=== PATIENT | female | born 1945 | race Caucasian/White ===

== ENCOUNTER 2023-05-28 15:53 | Inpatient (IN) | payer OTHER, SELFPAY ==
[2023-05-28] VITALS (12 sets, daily range): BP systolic 88–142; BP diastolic 51–81
[2023-05-28 10:02] LABS: % Basophils 0.2 % (0-2); % Eosinophils 3.9 % (0-6); % Immature Granulocytes 0.8 % (0-0.5); % Lymphocytes 31.7 % (20.5-51.1); % Monocytes 11.7 % (1.7-9.3); % Neutrophils 51.7 % (42.2-75.2); Absolute Eosinophils 0.2 10^3/uL (0-0.7); Absolute Immature Granulocytes 0.1 10^3/uL (0-0.05); Absolute Monocytes 0.7 10^3/uL (0.1-0.6); Absolute Neutrophils 3.2 10^3/uL (1.4-6.5); Hematocrit 33.2 % (37.0-47.0); Hemoglobin 11.4 g/dL (12.0-16.0); Mean Corp Hgb Conc. 34.3 g/dL (33.0-37.0); Mean Corpuscular Hgb 31.8 pg (27.0-31.0); Mean Corpuscular Volume 92.7 fL (81.0-99.0); Mean Platelet Volume 9.8 fL (7.4-10.4); Nucleated Red Blood Cells % 0 %; Platelet Count 230 10^3/uL (130-400); Red Blood Cell Count 3.58 10^6/uL (4.20-5.40); Red Cell Dist. Width 13.6 % (11.5-14.5); White Blood Cell Count 6.2 10^3/uL (4.8-10.8)
[2023-05-28 10:20] LABS: ALT (SGPT) 25 U/L (0-35); AST (SGOT) 35 U/L (14-36); Albumin 3.5 g/dl (3.5-5.0); Alkaline Phosphatase 62 U/L (38-126); Blood Urea Nitrogen 32 mg/dl (7-17); Calcium 8.6 mg/dl (8.4-10.2); Chloride 97 mmol/L (98-107); Glucose 96 mg/dl (70-99); Lipase 56 U/L (23-300); Potassium 4.6 mmol/L (3.5-5.1); Sodium 132 mmol/L (135-145); Total Bilirubin 1.9 mg/dl (0.2-1.3); Total Protein 5.8 g/dl (6.3-8.2); eGFR 51.75
[2023-05-28 10:27] LABS: D-Dimer 3.35 ug/mlFEU (0.00-0.50)
[2023-05-28 10:30] LABS: Troponin I < 0.012 ng/ml
[2023-05-28 10:43] LABS: Carbon Dioxide 32 mmol/L (22-30)
[2023-05-28] MEDS: LOW STRENGTH ASPIRIN 81 MG PO (10:56)
--- NOTE | 2023-05-28 11:04 | ED.GENMED ---
History of Present Illness
General
Chief Complaint: Chest Pain
Source: patient and family
Exam Limitations: none
Time Seen by Provider: 05/28/23 09:29
Nursing documentation reviewed up to this point in time: agreed with
Travel History
Have you had any contact with someone who has COVID-19?: No
Do you have any symptoms of coronavirus? Fever > 100 degrees, chills, cough, shortness of breath, sore throat, loss of taste or smell, muscle aches, or headache?: No
History of Present Illness
History of Present Illness:
78-year-old female with a history of hypertension, hyperlipidemia, NSTEMI, Takotsubo in 2022 status post cleanCath
Presents for chest discomfort this morning around 730 after she had gotten up to use the bathroom and got back to bed. She says she felt a pain across her chest and wraparound to her back and felt short of breath with it. It did hurt to take a
deep breath at the same time. It lasted about 10 minutes before resolving but moving onto feeling some discomfort in her jaw. She still has that mildly. She no longer feels short of breath and has no pleuritic pain. Patient is 8 days postop
total right knee by Dr. Hogan. She apparently was on a baby aspirin prior to surgery but was told to hold it a week before. She was not aware that she was supposed to resume the aspirin after her surgery and so she has not been taking that.
Patient has been taking 1 daily dose of Tylenol in the morning which she thought was a substitute for the aspirin. She is not not on any anticoagulant. Patient has been using oxycodone twice a day for pain but it is making her constipated so she
thinks she is going to stop. Her last dose was yesterday. Patient has had expected swelling and bruising of her right knee and into her calf. She is not having any numbness tingling or weakness.
Past History
Past History
ED Past Medical History: HTN; Negative CAD, IDDM or NIDDM
ED Past Surgical History: Negative Cardiac
Social History
Tobacco: Non-smoker
Alcohol: Occasional
Drug: None
Personal:
Living: alone
Employment: Retired
Family History
Family History: Other (Noncontributory); Negative CAD or Sudden
Review of Systems
Review of Systems
Allergies reviewed?: Yes
All Other Systems: Not applicable
Phy Exam
Physical Exam
Physical Exam:
GENERAL: Alert , in no apparent distress
EYE: pupils equal and reactive
NECK: Supple
ENT: o/p clr, mmm.
CARDIAC: Regular rate and rhythm .
Patient has edema of her right lower extremity with ecchymosis specifically under any and down to her calf
LUNGS: Clear breath sounds bilaterally, no acute respiratory distress, no wheezes/rales/rhonchi
ABDOMEN: Soft, without focal tenderness, no r/g, no cvat, normal bowel sounds
NEUROLOGICAL: Alert and oriented, no focal neuro deficits
SKIN: Warm and dry, skin intact.
MUSCULOSKELETAL: Moderate edema as expected postop right total knee repair, patient has have some flexion of her knee intact, she is has a dressing anteriorly over her incision site, there is ecchymosis throughout the leg
PSYCH: Normal and appropriate interaction.
Scores
Heart Score for Chest Pain Patients
STEMI patient?: No
History: Moderately Suspicious
ECG: Nonspecific Repolarization
Age: >/= 65 years
Risk Factors: 1 or 2 Risk Factors
Troponin: </= Normal Limit
Heart Score for Chest Pain Patients: 5
Heart Score Risk: 20.3% MACE over next 6 weeks
Course
Orders/Labs/Results
Orders:
Orders
05/28/23
Electrocardiogram (*1) Stat
Reason for Study: Chest Pain
Comment: DONE
Electrocardiogram (*1) Stat
Reason for Study: Chest Pain
Comment: DONE
05/28/23 09:47
CMP [Comprehensive Metabolic Panel] Urgent
Complete Blood Count/With Diff Urgent
DDimer [D-Dimer] Urgent
Lipase Urgent
PTT Urgent
Troponin I Urgent
05/28/23 10:07
CT Chest Pe Study Urgent
Comment:
Reason For Exam: s/p TKR, sob, chest pain
05/28/23 10:50
Aspirin Chewable [Low Strength Aspirin] 81 mg PO NOW STA
05/28/23 11:47
Venous Doppler Lwr Ext Bilat [US Periph Venous LOWER Ext Edmar] Urgent
Comment:
Reason For Exam: PE
05/28/23 11:48
Add On- LAB Stat
Tests Added?: pt/ptt/ INR
Heparin 6,000 units IV NOW STA
Pharmacy Request to Place See Dose Instructions PO NOW STA
Discontinue all Active Warfarin orders?: Yes
Nursing to Place Non Medication Order As Directed
Physician Order: PTT 6 hours after initial start of Heparin infusion
05/28/23 12:00
Heparin 31230 Units/250 ml 25,000 units in 250 ml IV PER PROTOCOL
Weight to be used for heparin protocol in kilograms (kg):: 75.1
Protocol:: DVT/PE
PTT Goal Range to be used:: PTT 73 to 111 seconds
Order type:: Initial
INITIAL Infusion Dose (UNITS/KG/hr) & then follow protocol:: 18 units/kg/hr
Infusion Dose in UNITS/hr & then follow protocol (UNITS/hr):: 1,400
INFUSION RATE in mL/hr & then follow protocol (mL/hr):: 14
For DVT/PE algorithm, re-bolus for low PTT?: Yes
PTT less than or equal to 64 seconds:: Re-bolus 80 units/kg (max 10,000units). Increase by 300 units/hr
(+ 3mL/hr)
PTT 64.1 to 72.9 seconds:: Re-bolus 40 units/kg (max 5,000 units). Increase by 200 units/hr
(+ 2mL/hr)
PTT 73 to 111 seconds:: Target Range. No change in rate.
PTT 111.1 to 130.9 seconds:: Decrease rate by 200 units/hr (- 2 mL/hr)
PTT 131 to 199.9 seconds:: HOLD for 1 hr. Then decrease by 200 units/hr (- 2mL/hr)
PTT greater than or equal to 200 seconds:: HOLD for 2 hrs & Notify Provider. Then decrease by 300 units/hr
(- 3mL/hr)
Lab follow-up:: Each change, PTT q6h until 2 consecutive are therapeutic. Then
PTT daily.
Pharmacy Request to Place See Dose Instructions IV DIRECTED
Abnormal Lab Results
05/28/23
09:47
RBC 3.58 L 10^6/uL
(4.20-5.40)
Hgb 11.4 L g/dL
(12.0-16.0)
Hct 33.2 L %
(37.0-47.0)
MCH 31.8 H pg
(27.0-31.0)
Abs Immat Gran (auto) 0.1 H 10^3/uL
(0-0.05)
Absolute Monos (auto) 0.7 H 10^3/uL
(0.1-0.6)
Immature Gran % 0.8 H %
(0-0.5)
Monocytes % 11.7 H %
(1.7-9.3)
D-Dimer 3.35 H ug/mlFEU
(0.00-0.50)
Sodium 132 L mmol/L
(135-145)
Chloride 97 L mmol/L
(98-107)
Carbon Dioxide 32 H mmol/L
(22-30)
BUN 32 H mg/dl
(7-17)
Creatinine 1.1 H mg/dL
(0.6-1.0)
Total Bilirubin 1.9 H mg/dl
(0.2-1.3)
Total Protein 5.8 L g/dl
(6.3-8.2)
05/28/23 09:47
05/28/23 09:47
Vital Signs
Initial and Last Documented VS:
Initial Vital Signs
Temp Pulse Resp BP Pulse Ox
97.8 F 70 16 100/61 98
05/28/23 09:23 05/28/23 09:23 05/28/23 09:23 05/28/23 09:23 05/28/23 09:23
Last Documented Vital Signs
Temp Pulse Resp BP Pulse Ox
97.8 F 70 16 100/61 98
05/28/23 09:23 05/28/23 09:23 05/28/23 09:23 05/28/23 09:23 05/28/23 09:23
MDM/Problems Addressed
Differential Diagnosis Includes:
PE, NSTEMI, dissection
MDM/Problems Addressed:
78 y/o F 8 days post op R TKR
here with chest pain/sob this am at 730
now with jaw discomfort which is minmal/mild
stopped her ASA prior to surgery and never restarted it, sounds as if she was confused by directions an dwas told to take tylenol post op instead of aspirin
pt has some pain/swlelign in the knee and lower leg which has been expected from surgery
no syncope, fever, cough
on exam pt is well appearing, no distress, not tachy or tachypneic
her lugns are clear
she has edema and ecchymosis of RLE
normal pulse
ekg is LBBB which is unchanged but there is a change to ST seg in v2
trop neg
d dimer was ordered by RN and elevated --> pt was high risk and i was planning on CT anyway
ct shows r pulm artery clot, small, no r heart strain
vitals stable
will admit because pt needs trop trending and us of legs. and monitoring for bleeding pos op.
*Critical Care Note
Total Time (30-74mins, 75-104mins- exclusive of procedures): Not Applicable
ED Attending Note
-
Portions of this chart may have been created with voice recognition software.� Occasional wrong word or��sound alike� substitutions may have occurred due to the inherent limitations of voice recognition software.
Discharge Plan
Departure
Patient Disposition: Admit
Date of Disposition: 05/28/23
Time of Disposition: 11:47
Admit to: Telemetry
Presentation/result/management discussed w/ accepting MD/DO: Hospitalist
Condition: Fair
Covid-19: Not Applicable
Discharge Problem:
Pulmonary embolism
Prescriptions:
No Action
atorvastatin 20 mg Tablet
20 mg PO QPM Qty: 90 5RF
amlodipine 2.5 mg Tablet
2.5 mg PO DAILY
oxycodone 5 mg Capsule
5 mg PO Q4H PRN (Reason: pain)
celecoxib 100 mg Capsule
100 mg PO BID
valsartan 160 mg Tablet
160 mg PO DAILY
carvedilol 6.25 mg tablet
25 mg PO BID
Referrals:
Halina Parker MD [Family Provider] -
Interventions
Interventions:
*Risk Screen - Suicide Last Done: 05/28/23 10:04
*General Assessment Last Done: 05/28/23 10:03
*Neglect/Abuse Screening Last Done: 05/28/23 10:04
*ED COVID-19 Vaccine History Last Done: 05/28/23 09:23
ED- Cardiac Assessment Last Done: 05/28/23 10:05
[2023-05-28 12:00] LABS: APTT 22.9 Sec (23.4-35.0)
[2023-05-28] MEDS: HEPARIN 6000 UNITS IV (12:04)
[2023-05-28 12:11] LABS: INR 1.06; PT 13.8 Sec (11.4-14.6)
[2023-05-28] MEDS: HEPARIN 25000 UNITS/250 ML IV (12:18)
--- NOTE | 2023-05-28 14:44 | HPS.HSE ---
Family Physician
-
Family Physician: Halina Parker
Chief Complaint
-
Chest Pain
History of Present Illness
78 y/o female with past medical history of Nonobstructive Coronary Artery Disease, Stress-induced takotsubo cardiomyopathy, Hypertension, Osteoarthritis of the Knees, Recent Total Right Knee Replacement (8 days ago, with Dr. Batres), History of QTc
prolongation, Left Bundle Branch Block, Chronic Kidney Disease Stage 3a, Gastroesophageal Reflux Disease, Hypertension and Hyperlipidemia presented with chest pain that started around 7:30 AM this morning. Patient says the pain started in her chest
and wrapped around to her back, and it did hurt to take a deep breath at the same time and she did have some discomfort in her jaw. She still has that mildly. She no longer feels short of breath and has no pleuritic pain. Patient says she was not
aware that she was supposed to resume her Aspirin after her surgery and so she has not been taking that.
Medical History
Past Medical History
Past Medical History: Reports Other (As per HPI above)
Past Surgical History: Reports Orthopedic
Social History
Tobacco: Non-smoker
Alcohol: None
Drug: None
Family History
Family History: Other (Heart Disease and Arthritis)
Allergies / Home Medications
Allergies reflects when Allergies were last updated in [facility].
Home Medications with original date entered in [facility]
Allergy/Medication List:
Allergies
Allergy/AdvReac Type Severity Reaction Status Date / Time
latex Allergy Rash Verified 05/28/23 09:26
Home Medications
atorvastatin 20 mg tablet 20 mg PO QPM #90 tabs 05/01/22
Ageles Brain 2 cap PO DAILY 05/28/23
Brain Strong Supplement 2 cap PO DAILY 05/28/23
acetaminophen 325 mg tablet (Tylenol) 325 mg PO TID 05/28/23
amlodipine 2.5 mg tablet 2.5 mg PO QPM 05/28/23
aspirin 81 mg tablet,delayed release 81 mg PO DAILY 05/28/23
calcium carb 333 mg-vit D3 133 unit-mag ox 133 mg-zinc oxide 5 mg tab 1 tab PO DAILY 05/28/23
carvedilol 25 mg tablet (Coreg) 25 mg PO BID 05/28/23
celecoxib 100 mg capsule 100 mg PO BID 05/28/23
lysine 500 mg tablet 1,500 mg PO DAILY 05/28/23
quercetin 500 mg capsule 500 mg PO DAILY 05/28/23
thymus gland calf 200 mg tablet,delayed release 200 mg PO DAILY 05/28/23
valsartan 160 mg tablet 160 mg PO DAILY 05/28/23
Review of Systems
-
A 12 point ROS was completed and negative except as noted: Yes
Physical Exam
Vital Signs
Vital Signs
Temp Pulse Resp BP Pulse Ox
97.8 F 72 12 88/58 97
05/28/23 09:23 05/28/23 14:30 05/28/23 14:30 05/28/23 14:20 05/28/23 12:30
Physical Exam
General: No Apparent Distress
HEENT: NormoCephalic and Moist mucous membranes
Respiratory: Clear
Cardiac: S1/S2 and Regular Rhythm
GI: Soft, Non Tender and Normal Bowel Sounds
Musculoskeletal: No Cyanosis, Edema, Left Lower Extremity and Edema, Right Lower Extremity (RLE with significantly more swelling than the left. Surgical bandage in place at the right knee.)
Skin: Warm and Dry
Neuro: Awake, Alert and AO x 3
Psych: Calm and Intact Judgment/Insight
Laboratory Results
-
05/28/23 09:47
05/28/23 09:47
Laboratory Results
PT 13.8 Sec (11.4-14.6) 05/28/23 09:47
INR 1.06 05/28/23 09:47
APTT Cancelled 05/28/23 11:48
Total Bilirubin 1.9 mg/dl (0.2-1.3) H 05/28/23 09:47
AST 35 U/L (14-36) 05/28/23 09:47
ALT 25 U/L (0-35) 05/28/23 09:47
Alkaline Phosphatase 62 U/L (38-126) 05/28/23 09:47
Troponin I < 0.012 ng/ml 05/28/23 09:47
Lipase 56 U/L (23-300) 05/28/23 09:47
Impression/Plan
-
Assessment/Plan
Right-Sided Pulmonary Embolism, Concern for Being provoked from recent surgery
History of Nonobstructive Coronary Artery Disease
Stress-induced takotsubo cardiomyopathy
Hypertension
-Continue Heparin Drip VTE protocol
-Spoke, on 05/28/23 via [facility], with platform worker Dr. Karmen Fletcher who reviewed patient's EKGs, and she mentioned that patient's EKG�s look much better than prior; She has a left bundle branch block, which is chronic with improved ST
segments compared to before; She just had a cardiac catheterization a year ago with no coronary disease so unlikely to give her two diagnosis; Would treat her as a pulmonary embolism (as this is the main issue); in addition, she had a stress test in
February that was without abnormality
-Unlikely to be cardiac: consult cardiology if troponins become significantly positive and if there are any significant changes on echocardiogram
-Consulted pulmonary, recommendations appreciated
-Echocardiogram
-Continue home statin and Aspirin for now
-Continue Coreg
Osteoarthritis of the Knees
Recent Total Right Knee Replacement
-Pain medicines as needed
-Will consider orthopedics consultation
History of QTc prolongation
Left Bundle Branch Block
-Chronic
-Newly diagnosed in April 2022
Chronic Kidney Disease Stage 3a
Gastroesophageal Reflux Disease
Hypertension
-Continue Valsartan
-Continue Coreg
Hyperlipidemia
-Continue Atorvastatin
DVT PPx: Heparin Drip
Code Status: Full Code
--- NOTE | 2023-05-28 14:53 | CM ---
CM reviewed medical records. CM met with patient and son in room. Patient confirmed demographics. Patient is S/p TKR and is on service with [facility]. patient denies history of SNF. Patient uses a cane and walker for ambulation. Patient has
medication coverage and ues RIte Aide. Patient is active with her PCP Dr. Huff.
Patient is agreeable to referral back to [facility]. Referral sent via [facility].
PLAN: Home with [facility].
--- NOTE | 2023-05-28 15:30 | CON.PUL ---
Consultation
Consultation Request
Date/Time Consultation Requested: 05/28/23
Date/Time Consultation Performed: 05/28/23
Performing Provider: Chio
Reason for Consultation: PE
Medical History
-
History of Present Illness:
Patient is a 78 year old F with past medical history of CAD, takotsubo cardiomyopathy, HTN, OA s/p R TKR (8 days ago, with Dr. Batres), CKD 3A, HTN presenting to ER with acute onset chest pain day of admission. She notes that there was
associated radiation to back and pain with deep inspiration. CT chest obtained showing filling defects in the right middle lobe pulmonary arteries consistent with pulmonary embolism.
She has never had PE/DVT in her life before and denies family history.
Munday to be provoked following recent orthopedic surgery. Son notes that she was not taking her daily baby ASA postop. She had been moving around despite her surgery but noted LE swelling was worsening.
Denies prior known history of lung disease in past including asthma, COPD. She was a trivial smoker in college, never pack/day use.
Past Medical History
Past Medical History: Other (see list below)
Social History
Tobacco: Non-smoker
Alcohol: None
Drug: None
Family History
Family History: Reviewed & Not Pertinent
Allergies / Home Medications
Allergies
Allergy/AdvReac Type Severity Reaction Status Date / Time
latex Allergy Rash Verified 05/28/23 09:26
Home Medications
Medication Instructions Recorded Confirmed Last Taken Type
atorvastatin 20 mg tablet 20 mg PO QPM #90 tabs 05/01/22 05/28/23 05/27/23 Rx
Ageles Brain 2 cap PO DAILY 05/28/23 05/28/23 Unknown History
Brain Strong Supplement 2 cap PO DAILY 05/28/23 05/28/23 15 Days Ago History
~05/13/23
acetaminophen 325 mg tablet 325 mg PO TID 05/28/23 05/28/23 05/28/23 History
(Tylenol) 975 mg
amlodipine 2.5 mg tablet 2.5 mg PO QPM 05/28/23 05/28/23 05/27/23 History
aspirin 81 mg tablet,delayed 81 mg PO DAILY 05/28/23 05/28/23 15 Days Ago History
release ~05/13/23
calcium carb 333 mg-vit D3 133 1 tab PO DAILY 05/28/23 05/28/23 05/27/23 History
unit-mag ox 133 mg-zinc oxide 5 mg
tab
carvedilol 25 mg tablet (Coreg) 25 mg PO BID 05/28/23 05/28/23 05/28/23 History
celecoxib 100 mg capsule 100 mg PO BID 05/28/23 05/28/23 05/28/23 History
lysine 500 mg tablet 1,500 mg PO DAILY 05/28/23 05/28/23 15 Days Ago History
~05/13/23
quercetin 500 mg capsule 500 mg PO DAILY 05/28/23 05/28/23 15 Days Ago History
~05/13/23
thymus gland calf 200 mg 200 mg PO DAILY 05/28/23 05/28/23 15 Days Ago History
tablet,delayed release ~05/13/23
valsartan 160 mg tablet 160 mg PO DAILY 05/28/23 05/28/23 05/28/23 History
Review of Systems
-
History Source: Patient
All other systems: Negative unless noted
Vitals / Labs / Diagnostic Testing
Vital Signs
Temp Pulse Resp BP Pulse Ox
97.8 F 71 14 95/55 97
05/28/23 09:23 05/28/23 14:48 05/28/23 14:48 05/28/23 14:48 05/28/23 12:30
Lab Data
05/28/23 09:47
05/28/23 09:47
Laboratory Results
05/28/23 05/28/23
09:47 11:48
PT 13.8
INR 1.06
APTT 22.9 L Cancelled
Diagnostic Testing:
Physical Exam
-
HEENT: Normocephalic, Anicteric and Moist Mucous Membranes
Cardiovascular: S1/S2, Regular Rhythm and Peripheral Edema (bilateral 3+)
Respiratory: Clear and Non-Labored Respirations
GI: Soft, Non Distended and Non Tender
Neurology: Awake, Alert, Oriented, AO x 3 and No Motor Deficits
Skin: Warm, Dry and Good Color
General: Comfortable and Other (NAD)
Assessment
-
Patient is a 78 year old F with past medical history of CAD, takotsubo cardiomyopathy, HTN, OA s/p R TKR (8 days ago, with Dr. Batres), CKD 3A, HTN presenting to ER with acute onset chest pain day of admission. She notes that there was
associated radiation to back and pain with deep inspiration. CT chest obtained showing filling defects in the right middle lobe pulmonary arteries consistent with pulmonary embolism. We are consulted for eval 05/28/23.
Acute PE, provoked following recent orthopedic surgery
B/L LE swelling
Pleuritic chest pain
Mild anemia, Hb 11
Mild hyponatremia
OA s/p R TKR 05/20/23
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
Nonobstructive CAD
Stress-induced takotsubo cardiomyopathy
Hypertension
Osteoarthritis of the Knees
History of QTc prolongation
Left Bundle Branch Block
Chronic Kidney Disease Stage 3a
Gastroesophageal Reflux Disease
Hyperlipidemia
Atopic Dermatitis
Acne Rosacea� �
H- Pylori� �
Basal cell carcinoma - nose s/p excision
Liver cysts� �
s/p bilateral Tubal Ligation� �
knee arthroscopy for torn meniscus� �
benign breast tumor excision� �
Plan
No oxygen was needed on admission, currently saturating >90% on RA
Denies prior known history of lung disease in past including asthma, COPD.
She was a trivial smoker in college, never pack/day use.
Suspect patient has underlying PE, provoked
Munday to be provoked following recent orthopedic surgery. Son notes that she was not taking her daily baby ASA postop.
She had been moving around despite her surgery but noted LE swelling was worsening.
She has never had PE/DVT in her life before and denies family history.
Imaging reviewed
Agree with IV heparin with eventual transition to OAC
ECHO in past reviewed--normal function
She has history of Takotsubo CM, nonobs CAD
No acute issues noted
Can monitor for now, repeat ECHO
Trops neg
LE swelling noted, neg for DVT
Further postop care per ortho
Will need outpatient pulmonary evaluation in our office for PFTs and 6MWT
Reviewed with patient
Risk factors assessed for underlying sleep disordered breathing also noted, recommend outpatient PSG/sleep evaluation
We will follow
Diagnostic Data
Duplex 05/28/23- IMPRESSION: No evidence of deep venous thrombosis bilaterally.
CTA chest 05/28/23- FINDINGS: There are small filling defects in the right middle lobe pulmonary artery consistent with pulmonary embolism. No aortic dissection. Great vessels at the aortic arch are widely patent.
Minimal biapical pleural thickening. Minimal dependent atelectasis. Scarring in the lung bases versus atelectasis. No pleural effusion. No focal airspace process. No pneumothorax.
The heart size is mildly enlarged. Mild coronary artery calcifications. Small pericardial effusion. There is no axillary, mediastinal or hilar adenopathy.
ECHO 03/03/23- Normal left ventricular size, wall thickness and systolic function.� No�regional wall motion abnormalities are seen. Estimated ejection fraction is 55-�60%.�No significant valvular disease.�Compared to previous echo from August 2022,
there is no significant change�
[2023-05-28] MEDS: TYLENOL 325 MG PO ×2 (18:25→21:07)
[2023-05-28] MEDS: LIPITOR 20 MG PO (18:25)
[2023-05-28] MEDS: NORVASC 2.5 MG PO (18:26)
[2023-05-28 19:22] LABS: Troponin I < 0.012 ng/ml
[2023-05-28 19:27] LABS: APTT > 200 Sec (23.4-35.0)
--- NOTE | 2023-05-28 20:53 | PTCARENOTE ---
Patient reported chest pressure and discomfort to RN. AAOx3, VS HR 76, Oral temp 98.2, BP 100/69, O2 sat 95% on RA. 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 EKG sent to MOVIE SHOT CAMERA OPERATOR. Patient requested no pain medication. K-Pad ordered for chest.
[2023-05-28] MEDS: COREG 25 MG PO (21:07)
[2023-05-29] VITALS (7 sets, daily range): BP systolic 97–120; BP diastolic 51–87
[2023-05-29 04:02] LABS: Hematocrit 28.5 % (37.0-47.0); Hemoglobin 9.9 g/dL (12.0-16.0); Mean Corp Hgb Conc. 34.7 g/dL (33.0-37.0); Mean Corpuscular Hgb 32.7 pg (27.0-31.0); Mean Corpuscular Volume 94.1 fL (81.0-99.0); Mean Platelet Volume 9.6 fL (7.4-10.4); Platelet Count 193 10^3/uL (130-400); Red Blood Cell Count 3.03 10^6/uL (4.20-5.40); Red Cell Dist. Width 13.8 % (11.5-14.5); White Blood Cell Count 5.7 10^3/uL (4.8-10.8)
[2023-05-29 04:26] LABS: APTT 117.9 Sec (23.4-35.0); Troponin I < 0.012 ng/ml
[2023-05-29 04:47] LABS: Blood Urea Nitrogen 38 mg/dl (7-17); Calcium 7.9 mg/dl (8.4-10.2); Carbon Dioxide 30 mmol/L (22-30); Chloride 104 mmol/L (98-107); Glucose 100 mg/dl (70-99); Magnesium 2.4 mg/dl (1.6-2.3); Potassium 4.4 mmol/L (3.5-5.1); Sodium 134 mmol/L (135-145); eGFR 58.02
[2023-05-29] MEDS: ASPIR LOW (ENTERIC COATED) 81 MG PO (08:05)
[2023-05-29] MEDS: COREG 25 MG PO ×2 (08:06→20:51)
[2023-05-29] MEDS: TYLENOL 325 MG PO ×3 (08:06→21:55)
[2023-05-29] MEDS: DIOVAN 160 MG PO (08:07)
[2023-05-29 10:08] LABS: APTT 101.1 Sec (23.4-35.0)
--- NOTE | 2023-05-29 11:49 | W.PN.PUL3 ---
Today's Communication / Plan
-
Transition to OAC per team
Stable on RA
Outpatient pulmonary FU recommended
Discharge planning per team
Assessment
-
Patient is a 78 year old F with past medical history of CAD, takotsubo cardiomyopathy, HTN, OA s/p R TKR (8 days ago, with Dr. Batres), CKD 3A, HTN presenting to ER with acute onset chest pain day of admission. She notes that there was
associated radiation to back and pain with deep inspiration. CT chest obtained showing filling defects in the right middle lobe pulmonary arteries consistent with pulmonary embolism. We are consulted for eval 05/28/23.
Acute PE, provoked following recent orthopedic surgery
B/L LE swelling
Pleuritic chest pain
Mild anemia, Hb 11
Mild hyponatremia
OA s/p R TKR 05/20/23
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
Nonobstructive CAD
Stress-induced takotsubo cardiomyopathy
Hypertension
Osteoarthritis of the Knees
History of QTc prolongation
Left Bundle Branch Block
Chronic Kidney Disease Stage 3a
Gastroesophageal Reflux Disease
Hyperlipidemia
Atopic Dermatitis
Acne Rosacea� �
H- Pylori� �
Basal cell carcinoma - nose s/p excision
Liver cysts� �
s/p bilateral Tubal Ligation� �
knee arthroscopy for torn meniscus� �
benign breast tumor excision� �
Plan
No oxygen was needed on admission, currently saturating >90% on RA
Denies prior known history of lung disease in past including asthma, COPD.
She was a trivial smoker in college, never pack/day use.
Suspect patient has underlying PE, provoked
[place] to be provoked following recent orthopedic surgery. Son notes that she was not taking her daily baby ASA postop.
She had been moving around despite her surgery but noted LE swelling was worsening.
She has never had PE/DVT in her life before and denies family history.
Imaging reviewed
Agree with IV heparin with eventual transition to OAC
ECHO in past reviewed--normal function
She has history of Takotsubo CM, nonobs CAD
No acute issues noted
Can monitor for now, repeat ECHO
Trops neg
LE swelling noted, neg for DVT
Further postop care per ortho
Will need outpatient pulmonary evaluation in our office for PFTs and 6MWT
Reviewed with patient
Risk factors assessed for underlying sleep disordered breathing also noted, recommend outpatient PSG/sleep evaluation
Diagnostic Data
Duplex 05/28/23- IMPRESSION: No evidence of deep venous thrombosis bilaterally.
CTA chest 05/28/23- FINDINGS: There are small filling defects in the right middle lobe pulmonary artery consistent with pulmonary embolism. No aortic dissection. Great vessels at the aortic arch are widely patent.
Minimal biapical pleural thickening. Minimal dependent atelectasis. Scarring in the lung bases versus atelectasis. No pleural effusion. No focal airspace process. No pneumothorax.
The heart size is mildly enlarged. Mild coronary artery calcifications. Small pericardial effusion. There is no axillary, mediastinal or hilar adenopathy.
ECHO 03/03/23- Normal left ventricular size, wall thickness and systolic function.� No�regional wall motion abnormalities are seen. Estimated ejection fraction is 55-�60%.�No significant valvular disease.�Compared to previous echo from August 2022,
there is no significant change�
Subjective Data
-
Date of Service:
Date of Service: May 29, 2023
Chief Complaint: Pulmonary Follow Up
Subjective:
patient seen and examined, no acute events on
remains stable on Ra
no new complaints
Objective Data
Data Reviewed
Vital Signs / I&O / Oxygen:
Vital Signs
Temp Pulse Resp BP Pulse Ox
98.7 F 68 20 97/60 96
05/29/23 11:40 05/29/23 11:40 05/29/23 11:40 05/29/23 11:40 05/29/23 11:40
Intake and Output
05/28/23 05/29/23 05/30/23
06:59 06:59 06:59
Intake Total 605 / 605
Balance 605 / 605
SaO2 96
Physical Exam
General: Comfortable and Other (NAD)
HEENT: Normocephalic, Anicteric and Moist Mucous Membranes
Cardiovascular: S1-S2, Regular Rhythm and Peripheral Edema (b/l 3+)
Respiratory: Clear and Non-Labored Respirations
GI: Soft, Non Distended and Non Tender
Neurology: Awake, Alert, Oriented, AO x 3 and No Motor Deficits
Skin: Warm, Dry and Good Color
Labs/Micro/Reports
Lab Data
05/29/23 03:50
05/29/23 03:50
Laboratory Results
05/28/23 05/28/23 05/28/23
09:47 11:48 18:49
PT 13.8
INR 1.06
APTT 22.9 L Cancelled > 200 H*
05/29/23 05/29/23
03:50 09:34
PT
INR
APTT 117.9 H 101.1 H
[2023-05-29 11:59] LABS: Troponin I < 0.012 ng/ml
[2023-05-29] MEDS: HEPARIN 25000 UNITS/250 ML IV (12:57)
--- NOTE | 2023-05-29 15:24 | W.PN.HOSP.TC ---
Today's Communication/Plan
-
Eliquis pricing in progress
Continue Heparin Drip
Assessment / Plan
Assessment / Plan
Physical Exam
General: No Apparent Distress
HEENT: Normocephalic and Moist mucous membranes
Respiratory: Clear
Cardiac: S1/S2 and Regular Rhythm
GI: Soft, Non Tender and Normal Bowel Sounds
Musculoskeletal: No Cyanosis, Edema, Left Lower Extremity and Edema, Right Lower Extremity (RLE with significantly more swelling than the left. Surgical bandage in place at the right knee.)
Skin: Warm and Dry
Neuro: Awake, Alert and AO x 3
Psych: Calm and Intact Judgment/Insight

Echocardiogram report as per cardiology:
'CONCLUSIONS
�1.� Left ventricle: Normal size and function with an estimated ejection
�fraction of 60-65%
�2.� Right ventricle: Normal
�3.� Atria: Normal
�4.� Mitral valve: Mild mitral regurgitation
�5.� Aortic valve: No aortic stenosis or aortic insufficiency
�6.� Tricuspid valve: Mild tricuspid regurgitation with estimated pulmonary
�artery systolic pressures of 27 mmHg
�7.� When compared to the most recent echocardiogram from 03/03/2023 there is
�been no significant change'
Assessment/Plan
Right-Sided Pulmonary Embolism, Concern for Being provoked from recent surgery
History of Nonobstructive Coronary Artery Disease
Stress-induced takotsubo cardiomyopathy
Hypertension
-Continue Heparin Drip VTE protocol
-Placed case management consult for Eliquis pricing, awaiting to hear back
-Spoke, on 05/28/23 via [place] [employer], with store protection specialist Dr. Karmen Fletcher who reviewed patient's EKGs, and she mentioned that patient's EKG�s look much better than prior; She has a left bundle branch block, which is chronic with improved ST
segments compared to before; She just had a cardiac catheterization a year ago with no coronary disease so unlikely to give her two diagnosis; Would treat her as a pulmonary embolism (as this is the main issue); in addition, she had a stress test in
February that was without abnormality
-Unlikely to be cardiac: consult cardiology if troponins become significantly positive and if there are any significant changes on echocardiogram
-Consulted pulmonary, recommendations appreciated
-Echocardiogram results are above
-Continue home statin and Aspirin for now -- consider checking with cardiology whether Aspirin is a must at discharge given patient's recent stress test was okay and cath a year ago was also okay (see above) -- or this may be able to be re-evaluated
outpatient
-Continue Coreg
Osteoarthritis of the Knees
Recent Total Right Knee Replacement
-Pain medicines as needed
-Will consider orthopedics consultation
History of QTc prolongation
Left Bundle Branch Block
-Chronic
-Newly diagnosed in April 2022
Chronic Kidney Disease Stage 3a
Gastroesophageal Reflux Disease
Hypertension
-Continue Valsartan
-Continue Coreg
Hyperlipidemia
-Continue Atorvastatin
DVT PPx: Heparin Drip
Code Status: Full Code
Anticipated Discharge: 24 - 48 hours
Subjective/Interval History
-
Date of Service: May 29, 2023
Patient was seen and examined. She reported some chest pain last night which has resolved. Overall she is feeling fine this morning.
Objective Data
-
Labs:
Laboratory Results
05/29/23 05/29/23 05/29/23
03:50 09:34 15:40
WBC 5.7
Hgb 9.9 L
Hct 28.5 L
Plt Count 193
APTT 117.9 H 101.1 H Pending
Sodium 134 L
Potassium 4.4
Chloride 104
Carbon Dioxide 30
BUN 38 H
Creatinine 1.0
Glucose 100 H
Calcium 7.9 L
Vital Signs:
Vital Signs
Temp Pulse Resp BP Pulse Ox
98.7 F 68 20 97/60 96
05/29/23 11:40 05/29/23 11:40 05/29/23 11:40 05/29/23 11:40 05/29/23 13:55
I&O
05/28/23 05/29/23 05/30/23
06:59 06:59 06:59
Intake Total 605 / 605
Balance 605 / 605
[2023-05-29 16:01] LABS: APTT 74.9 Sec (23.4-35.0)
--- NOTE | 2023-05-29 17:03 | CM ---
Could not obtain knight on Eliquis . sent script to pharmacy. Pt will check knight.
Pt given Eliquis first month free coupon.
She said Anthony son will drive her home at [place].
PLAN Home with [facility] fax [phone].
[2023-05-29] MEDS: LIPITOR 20 MG PO (17:31)
[2023-05-29] MEDS: NORVASC 2.5 MG PO (17:31)
[2023-05-30] VITALS (7 sets, daily range): BP systolic 78–162; BP diastolic 59–86; PULSE 92; O2SAT 94
[2023-05-30 00:36] LABS: Troponin I < 0.012 ng/ml
--- NOTE | 2023-05-30 07:06 | W.PN.HOSP.TC ---
Today's Communication/Plan
-
Hep gtt converted to Eliquis
monitor H&H
pain control prn oxycodone
prn Trazodone sleep
PT eval
Assessment / Plan
Assessment / Plan
Physical Exam
General: No Apparent Distress
HEENT: Normocephalic and Moist mucous membranes
Respiratory: Clear
Cardiac: S1/S2 and Regular Rhythm
GI: Soft, Non Tender and Normal Bowel Sounds
Musculoskeletal: No Cyanosis, Edema, Left Lower Extremity and Edema, Right Lower Extremity (RLE with significantly more swelling than the left. Surgical bandage in place at the right knee.)
Skin: Warm and Dry
Neuro: Awake, Alert and AO x 3
Psych: Calm and Intact Judgment/Insight

Echocardiogram report as per cardiology:
'CONCLUSIONS
�1.� Left ventricle: Normal size and function with an estimated ejection
�fraction of 60-65%
�2.� Right ventricle: Normal
�3.� Atria: Normal
�4.� Mitral valve: Mild mitral regurgitation
�5.� Aortic valve: No aortic stenosis or aortic insufficiency
�6.� Tricuspid valve: Mild tricuspid regurgitation with estimated pulmonary
�artery systolic pressures of 27 mmHg
�7.� When compared to the most recent echocardiogram from 03/03/2023 there is
�been no significant change'
Assessment/Plan
Right-Sided Pulmonary Embolism, Concern for Being provoked from recent surgery
History of Nonobstructive Coronary Artery Disease
Stress-induced takotsubo cardiomyopathy
Hypertension
-Heparin Drip VTE protocol converted to Eliquis 05/30
-Unlikely to be cardiac: consult cardiology if troponins become significantly positive and if there are any significant changes on echocardiogram
-Consulted pulmonary, recommendations appreciated
-Echocardiogram results are above
-Continue home statin and Aspirin
-Continue Coreg
Osteoarthritis of the Knees
Recent Total Right Knee Replacement
-Pain medicines as needed
-Orthopedic eval appreciated
History of QTc prolongation
Left Bundle Branch Block
-Chronic
-Newly diagnosed in April 2022
Chronic Kidney Disease Stage 3a
Gastroesophageal Reflux Disease
Hypertension
-Continue Valsartan
-Continue Coreg
Hyperlipidemia
-Continue Atorvastatin
DVT PPx: Heparin Drip converted to Eliquis
Code Status: Full Code
PT eval
discussed with patient and her daughter Martha and son Roque
I spent a total of 55 minutes with the patient or on the floor. More than 50% of this time involved counseling and coordination of care.
Anticipated Discharge: 24 - 48 hours
Subjective/Interval History
-
Date of Service: May 30, 2023
Seen and examined at bedside with daughter Alicia and Son Roque present during evaluation. Reports significant pain right knee requesting prn. Also endorses poor sleep
Objective Data
-
Labs:
Laboratory Results
05/30/23
06:00
WBC Pending
Hgb Pending
Hct Pending
Plt Count Pending
APTT Pending
Sodium Pending
Potassium Pending
Chloride Pending
Carbon Dioxide Pending
BUN Pending
Creatinine Pending
Glucose Pending
Calcium Pending
Vital Signs:
Vital Signs
Temp Pulse Resp BP Pulse Ox
98.3 F 74 16 115/68 96
05/30/23 03:40 05/30/23 03:40 05/30/23 03:40 05/30/23 03:40 05/30/23 03:40
I&O
05/29/23 05/30/23 05/31/23
06:59 06:59 06:59
Intake Total 605 / 605 948 / 982
Balance 495 / 722 947 / 955
[2023-05-30] MEDS: PROTONIX 40 MG PO (08:35)
[2023-05-30] MEDS: TYLENOL 325 MG PO (08:35)
[2023-05-30] MEDS: THERAGRAN 1 TABLET PO (08:35)
[2023-05-30 08:36] LABS: Hematocrit 27.5 % (37.0-47.0); Hemoglobin 9.4 g/dL (12.0-16.0); Mean Corp Hgb Conc. 34.2 g/dL (33.0-37.0); Mean Corpuscular Volume 93.5 fL (81.0-99.0); Mean Platelet Volume 9.6 fL (7.4-10.4); Platelet Count 219 10^3/uL (130-400); Red Blood Cell Count 2.94 10^6/uL (4.20-5.40); Red Cell Dist. Width 13.5 % (11.5-14.5); White Blood Cell Count 6.6 10^3/uL (4.8-10.8)
[2023-05-30] MEDS: ASPIR LOW (ENTERIC COATED) 81 MG PO (08:36)
[2023-05-30] MEDS: COREG 25 MG PO ×2 (08:38→20:37)
[2023-05-30] MEDS: DIOVAN 160 MG PO (08:39)
[2023-05-30 08:44] LABS: APTT 63.8 Sec (23.4-35.0)
[2023-05-30] MEDS: HEPARIN 6000 UNITS IV (09:22)
[2023-05-30 09:26] LABS: Blood Urea Nitrogen 33 mg/dl (7-17); Calcium 8.2 mg/dl (8.4-10.2); Carbon Dioxide 28 mmol/L (22-30); Chloride 101 mmol/L (98-107); Estimated Creatinine Clearance 50 ml/min; Glucose 113 mg/dl (70-99); Magnesium 2.2 mg/dl (1.6-2.3); Potassium 4.1 mmol/L (3.5-5.1); Sodium 132 mmol/L (135-145); eGFR > 60.00
--- NOTE | 2023-05-30 10:21 | W.PN.UPDATE ---
Update Note
Progress Note Update
78-year-old female with past medical history of coronary artery disease, cardiomyopathy, hypertension, prolonged QT, left bundle branch block, CKD 3A, GERD, hypertension, and hyperlipidemia who underwent a right total knee replacement by Dr. Olson
Medardo on May 21, 2023. On the morning of May 28 she developed chest pain and presented to [facility] emergency department. CT scan of the chest showed small filling defects in the right middle lobe pulmonary arteries. There
was no evidence of right heart strain. Patient was oxygenating well with pulse oximetry in the high 90%s. Ultrasound of the right lower extremity showed no evidence of DVT. Interestingly, patient was not taking postoperative aspirin as
recommended by Dr. Batres.
Patient is currently resting comfortably in bed. Her right knee Aquacel dressing is in place. There is diffuse ecchymosis over the right medial thigh, knee, and leg. Distal motor and sensation are intact. She is breathing comfortably, not on
oxygen, and not on a continuous pulse oximetry monitor. IV heparin drip is at the bedside.
78-year-old female now 9 days status post right TKA with small pulmonary embolism. Recommend patient get out of bed. Patient may resume physical therapy. Anticoagulation as per medicine. I suspect she will likely be discharged home on Eliquis if
this is financially viable.
[2023-05-30] MEDS: ELIQUIS 10 MG PO ×2 (11:23→20:36)
[2023-05-30] MEDS: ROXICODONE 2.5 MG PO ×2 (13:02→22:28)
[2023-05-30] MEDS: TYLENOL 1000 MG PO ×2 (15:29→22:04)
--- NOTE | 2023-05-30 16:28 | W.PN.PUL3 ---
Today's Communication / Plan
-
Eliquis
Pain control - right knee - lidocaine patch ordered
Outpatient pulmonary FU recommended
Discharge planning per team
Assessment
-
Patient is a 78 year old F with past medical history of CAD, takotsubo cardiomyopathy, HTN, OA s/p R TKR (8 days ago, with Dr. Batres), CKD 3A, HTN presenting to ER with acute onset chest pain day of admission. She notes that there was
associated radiation to back and pain with deep inspiration. CT chest obtained showing filling defects in the right middle lobe pulmonary arteries consistent with pulmonary embolism. We are consulted for eval 05/28/23.
Acute submassive PE (RML), provoked following recent orthopedic surgery (right TKA)
B/L LE swelling
Pleuritic chest pain
Anemia
Mild hyponatremia
OA s/p R TKR 05/20/23
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
Nonobstructive CAD
Stress-induced takotsubo cardiomyopathy
Hypertension
Osteoarthritis of the Knees
History of QTc prolongation
Left Bundle Branch Block
Chronic Kidney Disease Stage 3a
Gastroesophageal Reflux Disease
Hyperlipidemia
Atopic Dermatitis
Acne Rosacea� �
H- Pylori� �
Basal cell carcinoma - nose s/p excision
Liver cysts� �
s/p bilateral Tubal Ligation� �
knee arthroscopy for torn meniscus� �
benign breast tumor excision� �
Plan
No oxygen was needed on admission, currently saturating >90% on RA
Denies prior known history of lung disease in past including asthma, COPD.
She was a trivial smoker in college, never pack/day use.
Acute PE seen on CTA
[place] to be provoked following recent orthopedic surgery. Son notes that she was not taking her daily baby ASA postop as they were not instructed to - all they were told to take was pain medications.
She had been moving around despite her surgery but noted LE swelling was worsening.
She has never had PE/DVT in her life before and denies family history.
Imaging reviewed
Now on Eliquis (10mg PO BID x 7 days then 5mg BID)
ECHO in past reviewed--normal function
She has history of Takotsubo CM, nonobs CAD
No acute issues noted
Can monitor for now, repeat ECHO
Trops neg
LE swelling noted, neg for DVT
Further postop care per ortho
Will need outpatient pulmonary evaluation in our office for PFTs and 6MWT
Reviewed with patient
Risk factors assessed for underlying sleep disordered breathing also noted, recommend outpatient PSG/sleep evaluation
Diagnostic Data
Duplex 05/28/23- IMPRESSION: No evidence of deep venous thrombosis bilaterally.
CTA chest 05/28/23- FINDINGS: There are small filling defects in the right middle lobe pulmonary artery consistent with pulmonary embolism. No aortic dissection. Great vessels at the aortic arch are widely patent.
Minimal biapical pleural thickening. Minimal dependent atelectasis. Scarring in the lung bases versus atelectasis. No pleural effusion. No focal airspace process. No pneumothorax.
The heart size is mildly enlarged. Mild coronary artery calcifications. Small pericardial effusion. There is no axillary, mediastinal or hilar adenopathy.
ECHO 03/03/23- Normal left ventricular size, wall thickness and systolic function.� No�regional wall motion abnormalities are seen. Estimated ejection fraction is 55-�60%.�No significant valvular disease.�Compared to previous echo from August 2022,
there is no significant change�
Subjective Data
-
Date of Service:
Date of Service: May 30, 2023
Chief Complaint: Pulmonary Follow Up
Subjective:
Seen at bedside. Son at bedside. Questions answered. She is breathing well - endorses right knee pain as she has TKA-R recently.
Review of Systems
General: Other (negative unless mentioned above)
Objective Data
Data Reviewed
Vital Signs / I&O / Oxygen:
Vital Signs
Temp Pulse Resp BP Pulse Ox
97.3 F 69 18 162/86 95
05/30/23 15:37 05/30/23 15:37 05/30/23 15:37 05/30/23 15:37 05/30/23 07:00
Intake and Output
05/29/23 05/30/23 05/31/23
06:59 06:59 06:59
Intake Total 605 / 605 948 / 948 480 / 480
Balance 605 / 605 948 / 948 480 / 480
SaO2 95
Physical Exam
General: Comfortable and Other (NAD)
HEENT: Normocephalic, Anicteric and Moist Mucous Membranes
Cardiovascular: S1-S2 and Peripheral Edema (b/l +1 (R>L))
Respiratory: Clear, Wheeze (n), Crackles (n), Rhonchi (n) and Non-Labored Respirations
GI: Soft, Non Distended and Non Tender
Neurology: AO x 3 and No Motor Deficits
Skin: Warm, Dry, Good Color and Bruising (right medial lower extremity)
Labs/Micro/Reports
Lab Data
05/30/23 08:15
05/30/23 08:15
Laboratory Results
05/30/23 05/30/23 05/30/23
08:15 14:00 18:00
APTT 63.8 H Cancelled Cancelled
[2023-05-30] MEDS: LIPITOR 20 MG PO (17:39)
[2023-05-30] MEDS: NORVASC 2.5 MG PO (17:42)
[2023-05-30] MEDS: DESYREL 25 MG PO (20:38)
[2023-05-30] MEDS: LIDOCAINE 4% PATCH 2 PATCH TOPICAL (20:39)
[2023-05-30] MEDS: SENOKOT-S 1 TABLET PO (20:41)
[2023-05-31] VITALS (34 sets, daily range): BP systolic 69–133; BP diastolic 35–75
--- NOTE | 2023-05-31 04:30 | PTCARENOTE ---
Patient got up to BSC with assistance and reported feeling 'dizzy' and as if she was going to 'pass out'. Patient assisted back to bed and stated she was feeling better. BP 115/73 HR 77, pulse ox 96 on RA.
[2023-05-31 06:19] LABS: Hematocrit 23.1 % (37.0-47.0); Hemoglobin 7.9 g/dL (12.0-16.0); Mean Corp Hgb Conc. 34.2 g/dL (33.0-37.0); Mean Corpuscular Hgb 32.5 pg (27.0-31.0); Mean Corpuscular Volume 95.1 fL (81.0-99.0); Mean Platelet Volume 9.7 fL (7.4-10.4); Platelet Count 208 10^3/uL (130-400); Red Blood Cell Count 2.43 10^6/uL (4.20-5.40); Red Cell Dist. Width 13.6 % (11.5-14.5); White Blood Cell Count 9.5 10^3/uL (4.8-10.8)
[2023-05-31 06:38] LABS: Blood Urea Nitrogen 30 mg/dl (7-17); Calcium 8.4 mg/dl (8.4-10.2); Carbon Dioxide 29 mmol/L (22-30); Chloride 95 mmol/L (98-107); Estimated Creatinine Clearance 50 ml/min; Glucose 125 mg/dl (70-99); Potassium 3.8 mmol/L (3.5-5.1); eGFR > 60.00
[2023-05-31 06:43] LABS: Sodium 130 mmol/L (135-145)
--- NOTE | 2023-05-31 07:25 | W.PN.HOSP.TC ---
Addendum entered and electronically signed by Juana Lobo MD 05/31/23 15:22:
Blood pressure low later in day symptomatic light headed dizziness though Awake Alert Conversant throughout
SBP 70s 80s despit 1PRBC 250 cc IVF bolus x2
RLE also appears more swollen mottled appearance compared to earlier in day
stat CTA RLE ordered
patient to be transferred to ICU for pressor support closer monitoring
follow up post-transfusion H&H, transfuse for goal hgb>8 given concern active bleeding
will follow CTA results
-discussed with patient, her son Roque, Coal Hauler Operator, GI, Orthopedic
Original Note:
Today's Communication/Plan
-
1PRBC transfusion, follow up post-transfusion H&H
Hold Eliquis at this time, last dose this morning 05/31/23
Coreg reduced to 12.5 mg BID given symptomatic orthostatic hypotension
Cardio eval requested for optimization cardiac meds
GI eval for possible occult GI bleed.
Assessment / Plan
Assessment / Plan
Physical Exam
General: No Apparent Distress
HEENT: Normocephalic and Moist mucous membranes
Respiratory: Clear
Cardiac: S1/S2 and Regular Rhythm
GI: Soft, Non Tender and Normal Bowel Sounds
Musculoskeletal: No Cyanosis, Edema, Left Lower Extremity and Edema, Right Lower Extremity (RLE with significantly more swelling than the left. Surgical bandage in place at the right knee.)
Skin: Warm and Dry
Neuro: Awake, Alert and AO x 3
Psych: Calm and Intact Judgment/Insight

Echocardiogram report as per cardiology:
'CONCLUSIONS
�1.� Left ventricle: Normal size and function with an estimated ejection
�fraction of 60-65%
�2.� Right ventricle: Normal
�3.� Atria: Normal
�4.� Mitral valve: Mild mitral regurgitation
�5.� Aortic valve: No aortic stenosis or aortic insufficiency
�6.� Tricuspid valve: Mild tricuspid regurgitation with estimated pulmonary
�artery systolic pressures of 27 mmHg
�7.� When compared to the most recent echocardiogram from 03/03/2023 there is
�been no significant change'
Assessment/Plan
Right-Sided Pulmonary Embolism, Concern for Being provoked from recent surgery
History of Nonobstructive Coronary Artery Disease
Stress-induced takotsubo cardiomyopathy
Hypertension, Significant Orthostatic Hypotension during stay here
-Heparin Drip VTE protocol converted to Eliquis 05/30 last dose 05/31 morning placed on hold d/t worsening anemia no obvious signs of bleeding
-Troponin consistently neg, no chest pain
-Consulted pulmonary, recommendations appreciated
-Echocardiogram results as above
-Continue home statin and Aspirin
-Continue Coreg dose reduced to 12.5 mg BID from 25
-Cardio eval requested for optimization cardiac medications given symptomatic Orthostatic Hypotension, question if ASA can be discontinued if/when Eliquis is resumed
-GI eval requested for possible occult GI bleed exacerbated by anticoagulation
-1PRBC transfusion for possible active GI bleed Hgb 8.0 05/31 follow up post-transfusion H&H
Osteoarthritis of the Knees
Recent Total Right Knee Replacement
-Lidocaine patch Pain medicines oxycodong 2.5 mg Q8HPRN as needed
-Orthopedic eval appreciated
History of QTc prolongation
avoid QT prolonging agents
Left Bundle Branch Block
-Chronic
-Newly diagnosed in April 2022
Chronic Kidney Disease Stage 3a
Gastroesophageal Reflux Disease
Hypertension
-Continue Valsartan and Amlodipine with holding parameters
-Continue Coreg reduced dose as above
Hyperlipidemia
-Continue Atorvastatin
DVT PPx: Heparin Drip converted to Eliquis since placed on hold d/t concern GI bleed as above, scd ordered
GI ppx: Protonix
Code Status: Full Code
PT eval
discussed with patient and her daughter Alicia [correction to prior documentation- Alicia not Martha]
I spent a total of 55 minutes with the patient or on the floor. More than 50% of this time involved counseling and coordination of care.
Anticipated Discharge: 24 - 48 hours
Subjective/Interval History
-
Date of Service: May 31, 2023
Seen and examined at bedside in no acute distress resting comfortably in bed. Reports dizziness weakness on standing. Pain RLE knee controlled with current pain regimen. Reports sleeping well with trazodone last night
Objective Data
-
Labs:
Laboratory Results
05/31/23
05:40
WBC 9.5
Hgb 7.9 L
Hct 23.1 L
Plt Count 208
Sodium 130 L
Potassium 3.8
Chloride 95 L
Carbon Dioxide 29
BUN 30 H
Creatinine 0.9
Glucose 125 H
Calcium 8.4
Vital Signs:
Vital Signs
Temp Pulse Resp BP Pulse Ox
98.0 F 77 16 115/73 96
05/31/23 03:55 05/31/23 04:29 05/31/23 03:55 05/31/23 04:29 05/31/23 04:29
I&O
05/30/23 05/31/23 06/01/23
06:59 06:59 06:59
Intake Total 948 / 948 980 / 980
Balance 948 / 948 980 / 980
--- NOTE | 2023-05-31 08:47 | W.PN.UPDATE ---
Update Note
Progress Note Update
78-year-old female with past medical history of coronary artery disease, cardiomyopathy, hypertension, prolonged QT, left bundle branch block, CKD 3A, GERD, hypertension, and hyperlipidemia who underwent a right total knee replacement by Dr. Olson
Medardo on May 21, 2023.� On the morning of May 28 she developed chest pain and presented to [facility]'s emergency department. CT scan of the chest showed small filling defects in the right middle lobe pulmonary arteries consistent
with pulmonary embolism. Patient initially treated with intravenous heparin and now is receiving Eliquis. Throughout the admission, her hemoglobin has decreased. On May 28 her hemoglobin was 11.5, May 29 9.9, May 30 9.4, and today
7.9. Yesterday, patient began physical therapy and became lightheaded when out of bed. She had symptomatic orthostatic hypotension with her blood pressure decreasing to 78/59. Her right lower extremity exam is unchanged from yesterday. Current
vital signs in bed her blood pressure 103/66, pulse of 85, respiratory rate 17, and pulse ox 96% on room air.
78-year-old female status post right total knee replacement 10 days ago with postoperative pulmonary embolism. Patient with significant cardiac history. This patient is now having symptomatic orthostatic hypotension / hemoglobin of 7.9.
Consideration to be given to blood transfusion. Patient not stable for discharge to home at this time. I have ordered a new CBC for the morning of June 01.
Likely need for blood transfusion has been discussed with the patient. Patient has signed a blood consent. Type and screen has been ordered.
[2023-05-31] MEDS: PROTONIX 40 MG PO (08:49)
[2023-05-31] MEDS: COREG 25 MG PO (08:49)
[2023-05-31] MEDS: ASPIR LOW (ENTERIC COATED) 81 MG PO (08:49)
[2023-05-31] MEDS: THERAGRAN 1 TABLET PO (08:49)
[2023-05-31] MEDS: TYLENOL 1000 MG PO ×3 (08:49→21:37)
[2023-05-31] MEDS: DIOVAN 160 MG PO (08:49)
[2023-05-31] MEDS: LIDOCAINE 4% PATCH 2 PATCH TOPICAL (08:49)
[2023-05-31] MEDS: SENOKOT-S 1 TABLET PO ×2 (08:49→20:11)
[2023-05-31] MEDS: ELIQUIS 10 MG PO (08:57)
[2023-05-31] MEDS: ROXICODONE 2.5 MG PO ×2 (08:57→20:11)
[2023-05-31 09:37] LABS: Hematocrit 22.3 % (37.0-47.0)
[2023-05-31 11:00] LABS: Iron 55 ug/dl (37-170)
--- NOTE | 2023-05-31 11:00 | CON.CAR ---
Consultation
Consultation Request
Date/Time Consultation Requested: May 31, 2023
Date/Time Consultation Performed: May 31, 2023
Requesting Provider: Hospitalist
Performing Provider: Dr. Kameron tafoya
Reason for Consultation: Hypotension, anemia, cardiomyopathy
Medical History
-
Chief Complaint: Lightheadedness, dizziness, fatigue
History of Present Illness:
Primary care physician is Dr. Halina Parker
Primary miller supervisor is Dr. Barbara Patel
78-year-old female with past medical history of Takotsubo cardiomyopathy (no obst CAD by cath 04/29/22) and subsequent echocardiogram showing resolution of all wall motion abnormality and resolution of QT prolongation, LBBB, hypertension, CKD 3A,
GERD, and hyperlipidemia who underwent a right total knee replacement on May 21, 2023.� On the morning of May 28 she developed acute chest pain and presented to [facility]'s emergency department where evaluation diagnosed PE. CT
scan of the chest showed small filling defects in the right middle lobe pulmonary arteries consistent with pulmonary embolism.� Echocardiogram obtained May 28, 2023 shows normal RV size and function.
Patient initially treated with intravenous heparin then Eliquis.�
Throughout the admission, her hemoglobin has been decreasing (May 28 her hemoglobin was 11.5, May 29 9.9, May 30 9.4, and today 7.9).�She began physical therapy and became lightheaded when out of bed.� She had symptomatic orthostatic
hypotension with her blood pressure decreasing to 78/59.�
Cardiology consultation is requested regarding her orthostatic hypotension and question regarding continued need for aspirin.
Past medical history
-Remote history of Takotsubo cardiomyopathy April 2022, wall motion abnormalities/cardiomyopathy since resolved/normalized, stable over serial echocardiograms
-History of QT prolongation seen at the time of her acute event April 2022, subsequently with resolution of cardiomyopathy, QT interval has normalized/stabilized.
-Hypertension
-Dyslipidemia
Recent Cardiac Data:
-Echocardiogram May 28, 2023 normal left ventricular size and function, normal RV size and function, mild mitral regurgitation, no significant change from March 03, 2023
-EKG May 28, 2023 shows normal sinus rhythm left bundle branch block, normal QT interval and unchanged from previous.
-Lexiscan nuclear stress test March 04, 2023 does not suggest active coronary artery disease. There is perfusion which is mildly decreased, small area, fixed in the apical segment which improves with prone imaging more consistent with soft
tissue attenuation.
Social History
Tobacco: Non-Smoker
Alcohol: None
Drug: None
Personal:
Living: Alone
Employment: Retired
Family History
Family History: Reviewed & Not Pertinent
Allergies / Home Medications
Allergy/AdvReac Type Severity Reaction Status Date / Time
latex Allergy Rash Verified 05/28/23 09:26
Medication Instructions Recorded Confirmed Type
atorvastatin 20 mg tablet 20 mg PO QPM #90 tabs 05/01/22 05/28/23 Rx
Ageles Brain 2 cap PO DAILY Supplement 05/28/23 05/28/23 History
Brain Strong Supplement 2 cap PO DAILY Supplement 05/28/23 05/28/23 History
acetaminophen 325 mg tablet 325 mg PO TID Pain 05/28/23 05/28/23 History
(Tylenol)
amlodipine 2.5 mg tablet 2.5 mg PO QPM Blood Pressure 05/28/23 05/28/23 History
aspirin 81 mg tablet,delayed 81 mg PO DAILY Blood Clot 05/28/23 05/28/23 History
release Prevention/Tx
calcium carb 333 mg-vit D3 133 1 tab PO DAILY Supplement 05/28/23 05/28/23 History
unit-mag ox 133 mg-zinc oxide 5 mg
tab
carvedilol 25 mg tablet (Coreg) 25 mg PO BID Heart Failure 05/28/23 05/28/23 History
celecoxib 100 mg capsule 100 mg PO BID Anti-Inflammatory 05/28/23 05/28/23 History
lysine 500 mg tablet 1,500 mg PO DAILY Supplement 05/28/23 05/28/23 History
quercetin 500 mg capsule 500 mg PO DAILY Supplement 05/28/23 05/28/23 History
thymus gland calf 200 mg 200 mg PO DAILY Supplement 05/28/23 05/28/23 History
tablet,delayed release
valsartan 160 mg tablet 160 mg PO DAILY Blood Pressure 05/28/23 05/28/23 History
apixaban 5 mg tablet (Eliquis) 5 mg PO BID #60 tabs 05/29/23 Rx
apixaban 5 mg tablet (Eliquis) 10 mg PO BID 7 days #28 tabs 05/29/23 Rx
Physical Exam
Vital Signs
Temp Pulse Resp BP Pulse Ox
97.6 F 85 17 103/66 96
05/31/23 08:17 05/31/23 08:17 05/31/23 08:17 05/31/23 08:17 05/31/23 08:17
Lab Results
05/31/23 05:40
Troponin I < 0.012 ng/ml 05/29/23 23:45
Impression / Plan
-
Primary care physician is Dr. Halina Parker
Primary miller supervisor is Dr. Barbara Patel
78-year-old female with past medical history of Takotsubo cardiomyopathy (no obst CAD by cath 04/29/22) and subsequent echocardiogram showing resolution of all wall motion abnormality and resolution of QT prolongation, LBBB, hypertension, CKD 3A,
GERD, and hyperlipidemia who underwent a right total knee replacement on May 21, 2023.� On the morning of May 28 she developed acute chest pain and presented to [facility]'s emergency department where evaluation diagnosed PE. CT
scan of the chest showed small filling defects in the right middle lobe pulmonary arteries consistent with pulmonary embolism.� Echocardiogram obtained May 28, 2023 shows normal RV size and function.
Patient initially treated with intravenous heparin then Eliquis.�
Throughout the admission, her hemoglobin has been decreasing (May 28 her hemoglobin was 11.5, May 29 9.9, May 30 9.4, and today 7.9).�She began physical therapy and became lightheaded when out of bed.� She had symptomatic orthostatic
hypotension with her blood pressure decreasing to 78/59.�
Cardiology consultation is requested regarding her orthostatic hypotension and question regarding continued need for aspirin.
Recent Cardiac Data:
-Echocardiogram May 28, 2023 normal left ventricular size and function, normal RV size and function, mild mitral regurgitation, no significant change from March 03, 2023
-EKG May 28, 2023 shows normal sinus rhythm left bundle branch block, normal QT interval and unchanged from previous.
-Lexiscan nuclear stress test March 04, 2023 does not suggest active coronary artery disease. There is perfusion which is mildly decreased, small area, fixed in the apical segment which improves with prone imaging more consistent with soft
tissue attenuation.
Impression:
-Acute pulmonary embolism
-Severe anemia, presumably blood loss
-Orthostatic hypotension
-Remote history of Takotsubo cardiomyopathy April 2022, wall motion abnormalities/cardiomyopathy since resolved/normalized, stable over serial echocardiograms
-History of QT prolongation seen at the time of her acute event April 2022, subsequently with resolution of cardiomyopathy, QT interval has normalized/stabilized.
-Hypertension
-Dyslipidemia
Recommendations:
Her orthostasis is likely related to her progressive and now severe anemia. Additionally while there is no obvious RV dysfunction or RV strain, she likely is at least somewhat preload dependent after her pulmonary embolism.
-Recommend blood transfusion/maintaining adequate volume.
-Would not continue aspirin (there is no current absolute cardiac indication to maintain aspirin)
-Given symptomatic hypotension hold Coreg.
-Evaluation for blood loss anemia as per primary service
-Anticoagulation management as per primary service.
Data Reviewed
-
EKG: Tracing Personally Visualized and interpreted
Radiology: Report Reviewed by me
Medical Tests (Nuc Med, Echo etc): Report Reviewed by me
Labs: Labs Reviewed by me
Old Records: Reviewed
Total Time Spent with Patient (in minutes): 95
[2023-05-31 11:16] LABS: Percent Saturation 19 % (20-50); Total Iron Binding Capacity 283 ug/dl (265-497)
[2023-05-31] MEDS: NSS 250 IV ×2 (12:11→13:46)
[2023-05-31] MEDS: MAALOX 30 ML PO (12:12)
--- NOTE | 2023-05-31 12:50 | W.PN.PUL3 ---
Today's Communication / Plan
-
Holding Eliquis in setting of acute anemia and hypotension this AM
Follow up CBC s/p 1 U PRBC --> if not rising appropriately then check CT angio right lower extremity to assess for active extravasation
Pain control - right knee -continue lidocaine patch
Outpatient pulmonary FU recommended
If hypotension worsens then would TRX to IMU for closer monitoring.
Assessment
-
Patient is a 78 year old F with past medical history of CAD, takotsubo cardiomyopathy, HTN, OA s/p R TKR (8 days ago, with Dr. Batres), CKD 3A, HTN presenting to ER with acute onset chest pain day of admission. She notes that there was
associated radiation to back and pain with deep inspiration. CT chest obtained showing filling defects in the right middle lobe pulmonary arteries consistent with pulmonary embolism. We are consulted for eval 05/28/23.
Acute submassive PE (RML), provoked following recent orthopedic surgery (right TKA)
Acute hypotension in setting of acute anemia
B/L LE swelling --> now her RLE is swollen and left leg appears WNL
Pleuritic chest pain
Anemia
Mild hyponatremia
OA s/p R TKR 05/20/23
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
Nonobstructive CAD
Stress-induced takotsubo cardiomyopathy
Hypertension
Osteoarthritis of the Knees
History of QTc prolongation
Left Bundle Branch Block
Chronic Kidney Disease Stage 3a
Gastroesophageal Reflux Disease
Hyperlipidemia
Atopic Dermatitis
Acne Rosacea� �
H- Pylori� �
Basal cell carcinoma - nose s/p excision
Liver cysts� �
s/p bilateral Tubal Ligation� �
knee arthroscopy for torn meniscus� �
benign breast tumor excision� �
Plan
No oxygen was needed on admission, currently saturating >90% on RA
Denies prior known history of lung disease in past including asthma, COPD.
She was a trivial smoker in college, never pack/day use.
Acute PE seen on CTA
[place] to be provoked following recent orthopedic surgery. Son notes that she was not taking her daily baby ASA postop as they were not instructed to - all they were told to take was pain medications.
She had been moving around despite her surgery but noted LE swelling was worsening.
She has never had PE/DVT in her life before and denies family history.
Imaging reviewed
Hold Eliquis in setting of acute anemia with possible acute bleed --> repeat CBC approximately 30 minutes - 1 hour s/p transfusion completion. If Hb does not rise appropriately then would check CT angio right lower extremity to assess for active
extravasation into RLE
ECHO in past reviewed--normal function
She has history of Takotsubo CM, nonobs CAD
No acute issues noted
Can monitor for now, repeat ECHO
Trops neg
LE swelling noted (R>L), neg for DVT
Further postop care per ortho
Pain control for right knee --> I ordered lidocaine patch for R-knee and she says it is helping
Will need outpatient pulmonary evaluation in our office for PFTs and 6MWT
Reviewed with patient
Risk factors assessed for underlying sleep disordered breathing also noted, recommend outpatient PSG/sleep evaluation
Pulmonary service will continue to follow along.
Diagnostic Data
Duplex 05/28/23- IMPRESSION: No evidence of deep venous thrombosis bilaterally.
CTA chest 05/28/23- FINDINGS: There are small filling defects in the right middle lobe pulmonary artery consistent with pulmonary embolism. No aortic dissection. Great vessels at the aortic arch are widely patent.
Minimal biapical pleural thickening. Minimal dependent atelectasis. Scarring in the lung bases versus atelectasis. No pleural effusion. No focal airspace process. No pneumothorax.
The heart size is mildly enlarged. Mild coronary artery calcifications. Small pericardial effusion. There is no axillary, mediastinal or hilar adenopathy.
ECHO 03/03/23- Normal left ventricular size, wall thickness and systolic function.� No�regional wall motion abnormalities are seen. Estimated ejection fraction is 55-�60%.�No significant valvular disease.�Compared to previous echo from August 2022,
there is no significant change�
Subjective Data
-
Date of Service:
Date of Service: May 31, 2023
Chief Complaint: Pulmonary Follow Up
Subjective:
Patient seen today at bedside. This morning patient was dizzy upon standing. Hypotensive in the early afternoon with BP 88/59. IV fluids being started with 500 cc bolus NS 0.9%. Hemoglobin this morning 7.9 and 1 unit PRBC being transfused. No
obvious bleeding. As per the son, patient's right lower extremity is more swollen today. The amount of bruising is stable, however. Patient denies back pain, abdominal pain, chest pain, fevers or chills. She does endorse nausea but has not
vomited.
Review of Systems
General: Other (Negative unless mentioned above)
Objective Data
Data Reviewed
Vital Signs / I&O / Oxygen:
Vital Signs
Temp Pulse Resp BP Pulse Ox
98.5 F 81 20 82/49 95
05/31/23 11:49 05/31/23 11:49 05/31/23 11:49 05/31/23 11:49 05/31/23 11:49
Intake and Output
05/30/23 05/31/23 06/01/23
06:59 06:59 06:59
Intake Total 948 / 948 980 / 980 0 / 0
Balance 948 / 948 980 / 980 0 / 0
SaO2 95
Physical Exam
General: Comfortable and Other (Appears fatigued; pale)
HEENT: Normocephalic, Anicteric and Moist Mucous Membranes
Cardiovascular: S1-S2 and Peripheral Edema (b/l +1 (R>L))
Respiratory: Clear, Wheeze (n), Crackles (n), Rhonchi (n), Non-Labored Respirations and Accessory Resp Muscle Use (Negative)
GI: Soft, Non Distended and Non Tender
Neurology: AO x 3 and No Motor Deficits
Skin: Warm, Dry, Good Color, Bruising (right medial lower extremity) and Other (Nonpitted swelling seen in right lower extremity)
Labs/Micro/Reports
Lab Data
05/31/23 05:40
Laboratory Results
05/30/23 05/30/23
14:00 18:00
APTT Cancelled Cancelled
[2023-05-31 12:52] LABS: Folate 9.1 ng/ml (2.76-20); Vitamin B12 237 pg/ml (239-931)
--- NOTE | 2023-05-31 13:15 | CON.GI ---
Addendum entered and electronically signed by Juana Garcia MD 05/31/23 14:53:
I did not hear back and nursing/family asking about CTA so I took liberty to order it.
Dr. Lobo did state planning to upgrade.
Original Note:
Consultation
-
Date/Time Consultation Requested: 05/31/2023, 10:15 am
Date/Time Consultation Performed: 05/31/2023, 1:30pm
Requesting Provider: Dr. Lobo
Performing Provider: Dr. Garcia
Reason for Consultation: drop in Hb
Medical History
Chief Complaint / HPI
Chief Complaint: chest pain
History of Present Illness:
78 yo F pmh CAD, stress induced Takotsubo CM, CKD, QTc prolongation, recent right total knee replacement 05/20, admitted with chest pain 05/28. She did not resume her ASA postop. Found to have PE on CTA 05/28; echo unchanged. Started on heparin gtt.
Heparin PE protocol converted to Eliquis 05/30, last dose am of 05/31 due to worsening anemia. Hb dropped from 9.4 to 7.9/8 this am but NO reported black or red stool. Last BM 2 days ago was brown. BP did drop to the 80s systolic as well from the
100s. Iron studies checked earlier this admission borderline low iron sat, no ferritin (could be falsely elevated with PE regardless).
Patient seen at bedside with daughter and son. No GI complaints except for some mild nausea. No abd pain. Some dizziness and SOB with walking. Chest pain resolved.
Yesterday, pain in leg increased and her son and daughter note her leg became very swollen and is now bruised which it had not been before. Also has a bruise on opposite leg from banging her leg.
Past Medical History
Past Medical History: CAD, GERD, HTN, Hypercholesterolemia, Renal Failure (ckd3) and Other (Stress-induced takotsubo cardiomyopathy, OA, prolonged QT, LBBB)
Past Surgical History: Orthopedic
Social History
Tobacco: Non-Smoker
Alcohol: None
Drug: None
Family History
Family History: Reviewed & Not Pertinent
Allergies / Home Medications
Allergy/AdvReac Type Severity Reaction Status Date / Time
latex Allergy Rash Verified 05/28/23 09:26
Medication Instructions Recorded
atorvastatin 20 mg tablet 20 mg PO QPM #90 tabs 05/01/22
Ageles Brain 2 cap PO DAILY Supplement 05/28/23
Brain Strong Supplement 2 cap PO DAILY Supplement 05/28/23
acetaminophen 325 mg tablet 325 mg PO TID Pain 05/28/23
(Tylenol)
amlodipine 2.5 mg tablet 2.5 mg PO QPM Blood Pressure 05/28/23
aspirin 81 mg tablet,delayed 81 mg PO DAILY Blood Clot 05/28/23
release Prevention/Tx
calcium carb 333 mg-vit D3 133 1 tab PO DAILY Supplement 05/28/23
unit-mag ox 133 mg-zinc oxide 5 mg
tab
carvedilol 25 mg tablet (Coreg) 25 mg PO BID Heart Failure 05/28/23
celecoxib 100 mg capsule 100 mg PO BID Anti-Inflammatory 05/28/23
lysine 500 mg tablet 1,500 mg PO DAILY Supplement 05/28/23
quercetin 500 mg capsule 500 mg PO DAILY Supplement 05/28/23
thymus gland calf 200 mg 200 mg PO DAILY Supplement 05/28/23
tablet,delayed release
valsartan 160 mg tablet 160 mg PO DAILY Blood Pressure 05/28/23
apixaban 5 mg tablet (Eliquis) 5 mg PO BID #60 tabs 05/29/23
apixaban 5 mg tablet (Eliquis) 10 mg PO BID 7 days #28 tabs 05/29/23
Review of Systems
-
All other systems: A 12 pt ROS was Negative except as stated above in HPI
Vital Signs
Temp Pulse Resp BP Pulse Ox
98.5 F 81 20 82/46 76
05/31/23 11:49 05/31/23 11:49 05/31/23 11:49 05/31/23 13:01 05/31/23 13:01
Physical Exam
Exam
General: Well Developed
HEENT: Normocephalic
Respiratory: Clear
Cardiac: S1/S2
GI: Non Tender and Non Distended
Rectal: Brown
Musculoskeletal: Other (right leg swollen, very bruised)
Skin: Other (bruises as above)
Neuro: AO x 3
Results
WBC 9.5 10^3/uL (4.8-10.8) 05/31/23 05:40
Hgb 8.0 g/dL (12.0-16.0) L 05/31/23 09:31
Hct 22.3 % (37.0-47.0) L 05/31/23 09:31
MCV 95.1 fL (81.0-99.0) 05/31/23 05:40
Plt Count 208 10^3/uL (130-400) 05/31/23 05:40
Absolute Neuts (auto) 3.2 10^3/uL (1.4-6.5) 05/28/23 09:47
PT 13.8 Sec (11.4-14.6) 05/28/23 09:47
INR 1.06 05/28/23 09:47
APTT Cancelled 05/30/23 18:00
Sodium 130 mmol/L (135-145) L 05/31/23 05:40
Potassium 3.8 mmol/L (3.5-5.1) 05/31/23 05:40
Chloride 95 mmol/L (98-107) L 05/31/23 05:40
Carbon Dioxide 29 mmol/L (22-30) 05/31/23 05:40
BUN 30 mg/dl (7-17) H 05/31/23 05:40
Creatinine 0.9 mg/dL (0.6-1.0) 05/31/23 05:40
Calcium 8.4 mg/dl (8.4-10.2) 05/31/23 05:40
Total Bilirubin 1.9 mg/dl (0.2-1.3) H 05/28/23 09:47
AST 35 U/L (14-36) 05/28/23 09:47
ALT 25 U/L (0-35) 05/28/23 09:47
Alkaline Phosphatase 62 U/L (38-126) 05/28/23 09:47
Lipase 56 U/L (23-300) 05/28/23 09:47
Diagnostic Image Results:
Prior GI Procedures:
EGD: [address] Vinson
Colonoscopy: multiple colons with Dr. Vinson most recent 12/2021 tics in sigmoid and hemorrhoids
Assessment / Plan
-
78 yo F pmh as above admitted with PE after recent knee replacement now found to have acute drop in Hb, brown stool, with swollen and bruised right leg (same leg as knee replacement).
Most concerning for extravasation into right leg - agree with Dr. Velez's assessment and agree with his recommendation to do a CT angio right lower extremity.
Seems less likely GI to have an acute drop 1 g of hb with no overt bleeding.
Discussed with hospitalist Dr. Lobo and pulm Dr. Velez.
Trend Hb and hold Eliquis for now.
-
-
Thank you for consultation and allowing me to participate in the patient's care. Please call the project construction assistant manager GI physician during the after hours with any questions or concerns.
--- NOTE | 2023-05-31 14:45 | PTCARENOTE ---
1 unit of PRBC transfused. CBC pending, to be drawn 1 hr post transfusion @15:30.
[2023-05-31 16:09] LABS: Hematocrit 21.8 % (37.0-47.0); Hemoglobin 7.6 g/dL (12.0-16.0); Mean Corp Hgb Conc. 34.9 g/dL (33.0-37.0); Mean Corpuscular Hgb 31.7 pg (27.0-31.0); Mean Corpuscular Volume 90.8 fL (81.0-99.0); Mean Platelet Volume 9.6 fL (7.4-10.4); Platelet Count 184 10^3/uL (130-400); Red Cell Dist. Width 14.3 % (11.5-14.5); White Blood Cell Count 8.4 10^3/uL (4.8-10.8)
--- NOTE | 2023-05-31 16:27 | TRANSFER ---
500ml Fluid bolus given for low BP without response. Last Manual BP of 78/49 taken on L arm. Patient complained of 'mild dizziness.' AAOx3. Transferred patient to ICU per orders.
--- NOTE | 2023-05-31 17:00 | PTCARENOTE ---
Admit to ICU. Assessment performed, see flowsheets. NSR with BBB on heart monitor. SpO2 95% on RA. Two R forearm PIVs flushed and patent. RLE with ecchymosis and +2 edema. LLE +1 edema and some bruising from hitting a table while cleaning, per pt
and pt's son. RLE ecchymosis has been present since surgery, but the swelling is of concern. CTA of RLE pending. +2, palpable pedal pulses. Blood pressure is soft but not requiring levophed at this time. Will continue to monitor.
--- NOTE | 2023-05-31 17:06 | W.PN.UPDATE ---
Update Note
Progress Note Update
CTA reviewed : 'Large hematomas anterior to the knee prosthesis and in the quadriceps musculature with greatest involvement of the vastus intermedius muscle. No CTA evidence for active bleeding during the course of this exam.'
Likely cause of anemia given brown stool.
GI will sign off.
Updated Dr. Velez and Dr. Lobo.
[2023-05-31] MEDS: LIPITOR 20 MG PO (17:16)
--- NOTE | 2023-05-31 17:45 | PTCARENOTE ---
1 unit PRBCs ordered and running for hgb= 7.6. This is the second unit total that the pt has received today.
--- NOTE | 2023-05-31 19:30 | W.PN.UPDATE ---
Addendum entered and electronically signed by Juana Lobo MD 06/01/23 09:29:
consult canceled, not necessary at this time
Original Note:
Update Note
Progress Note Update
1929- Consult placed for vascular surgery, Dr. Anna vascular surgeon updated and reviewed Ct results of hematomas. No need for surgical intervention at this time no signs of bleeding. Will continue to trend H&H and monitor for
tension/compartments surrounding hematomas.
--- NOTE | 2023-05-31 20:10 | PTCARENOTE ---
Rec'd pt resting in bed, family at bedside, oriented, cooperative, oxycodone 2.5 mg po given for R knee pain, Prbc infused, SR w/ BBB, + pulses,+2 R leg edema, R knee dsg intact, ecchymotic, surgical site soft, Normal distal pulses, RA, lungs
clear, sat 97, no sob, + bowel sounds, no bm, abd soft/nontender, opal diet, purewick applied- voiding debo urine, ice packs to surgical site prn
[2023-05-31 21:41] LABS: Hematocrit 24.3 % (37.0-47.0); Hemoglobin 8.5 g/dL (12.0-16.0); Mean Corpuscular Volume 91.4 fL (81.0-99.0); Mean Platelet Volume 9.8 fL (7.4-10.4); Platelet Count 169 10^3/uL (130-400); Red Blood Cell Count 2.66 10^6/uL (4.20-5.40); Red Cell Dist. Width 14.7 % (11.5-14.5); White Blood Cell Count 8.6 10^3/uL (4.8-10.8)
[2023-05-31] MEDS: NSS 500 IV (23:10)
--- NOTE | 2023-05-31 23:10 | PTCARENOTE ---
Martina Patton NP aware of bp 78/46- 500ml nss bolus hung over 30min per order, 2 liters nc added for sat 85 when pt sleeping
[2023-05-31] MEDS: LEVOPHED 250 IV (23:43)
--- NOTE | 2023-05-31 23:45 | PTCARENOTE ---
sys reviewed, R leg unch, levophed gtt started at 2mic- to keep sbp > 90, son staying the night
[2023-06-01] VITALS (100 sets, daily range): BP systolic 75–144; BP diastolic 46–125; BMI 26.6
--- NOTE | 2023-06-01 01:00 | PTCARENOTE ---
pt climbed oob at the bottom of the bed, standing by bed, pt was disoriented and said she was going to go to the bathroom, reoriented pt, R Forearm iv out, assisted back to bed, CHG bath done, bed alarm on
[2023-06-01 03:28] LABS: Hematocrit 26.7 % (37.0-47.0); Hemoglobin 9.2 g/dL (12.0-16.0); Mean Corp Hgb Conc. 34.5 g/dL (33.0-37.0); Mean Corpuscular Hgb 31.9 pg (27.0-31.0); Mean Corpuscular Volume 92.7 fL (81.0-99.0); Mean Platelet Volume 9.5 fL (7.4-10.4); Platelet Count 178 10^3/uL (130-400); Red Blood Cell Count 2.88 10^6/uL (4.20-5.40); Red Cell Dist. Width 14.8 % (11.5-14.5); White Blood Cell Count 9.6 10^3/uL (4.8-10.8)
[2023-06-01 03:40] LABS: APTT 28.5 Sec (23.4-35.0); INR 1.21; PT 15.1 Sec (11.4-14.6)
[2023-06-01 03:41] LABS: Blood Urea Nitrogen 27 mg/dl (7-17); Calcium 8.4 mg/dl (8.4-10.2); Carbon Dioxide 30 mmol/L (22-30); Chloride 101 mmol/L (98-107); Estimated Creatinine Clearance 41 ml/min; Glucose 118 mg/dl (70-99); Potassium 4.5 mmol/L (3.5-5.1); Sodium 134 mmol/L (135-145); eGFR 51.75
--- NOTE | 2023-06-01 04:12 | PTCARENOTE ---
sys reviewed, resting comf, denies pain, weaning levo as opal R leg unch
--- NOTE | 2023-06-01 06:59 | W.PN.HOSP.TC ---
Today's Communication/Plan
-
IVC filter placement today by IR
Monitor H&H transfuse goal Hgb>8
wean pressor as tolerated
antihypertensives placed on hold d/t ongoing hypotension requiring pressor support
Canceling aspirin for now given no cardiac indication as per cardio eval
Could consider therapeutic ASA dvt ppx dose per orthopedic but would prefer consistent H&H stable and wean off pressor before starting.
Assessment / Plan
Assessment / Plan
Physical Exam
General: No Apparent Distress
HEENT: Normocephalic and Moist mucous membranes
Respiratory: Clear
Cardiac: S1/S2 and Regular Rhythm
GI: Soft, Non Tender and Normal Bowel Sounds
Musculoskeletal: No Cyanosis, Edema, Left Lower Extremity and Edema, Right Lower Extremity (RLE with significantly more swelling than the left. Surgical bandage in place at the right knee.)
Skin: Warm and Dry
Neuro: Awake, Alert and AO x 3
Psych: Calm and Intact Judgment/Insight

Echocardiogram report as per cardiology:
'CONCLUSIONS
�1.� Left ventricle: Normal size and function with an estimated ejection
�fraction of 60-65%
�2.� Right ventricle: Normal
�3.� Atria: Normal
�4.� Mitral valve: Mild mitral regurgitation
�5.� Aortic valve: No aortic stenosis or aortic insufficiency
�6.� Tricuspid valve: Mild tricuspid regurgitation with estimated pulmonary
�artery systolic pressures of 27 mmHg
�7.� When compared to the most recent echocardiogram from 03/03/2023 there is
�been no significant change'
Assessment/Plan
Right-Sided Pulmonary Embolism, Concern for Being provoked from recent surgery
History of Nonobstructive Coronary Artery Disease
Stress-induced takotsubo cardiomyopathy
Hypertension, Significant Orthostatic Hypotension during stay here
-Heparin ip VTE protocol converted to Eliquis 05/30 last dose 05/31 morning placed on hold d/t worsening anemia no obvious signs of bleeding
-Troponin consistently neg, no chest pain
-Consulted pulmonary, recommendations appreciated
-Echocardiogram results as above
-Continue home statin and Aspirin
-Continue Coreg dose reduced to 12.5 mg BID from 25 later discontinued due to low pressures and concerns active bleeding suppressing physiologic tachycardia
-GI eval appreciated, anemia was determined to be due to RLE bleed large hematoma as below, no further gi evaluation necessary at this time
05/31 transfer to IMU due to hypotension ongoing drop in hgb
Blood pressure low later in day symptomatic light headed dizziness though Awake Alert Conversant throughout
SBP 70s 80s despite 1PRBC 250 cc IVF bolus x2
RLE also appeared more swollen mottled appearance compared to earlier in day
patient transferred to ICU for levophed pressor support closer monitoring
RLE CTA notable for large hematomas but no active bleeding
initial transfusion 1PRBC for Hgb 8.0 noted poor response 7.6 subsequently improved following 2nd transfusion to Hgb 8.5
-Cardio eval appreciated from cardiac perspective ASA not necessary at this time, discontinued for now, could consider resuming therapeutic Aspirin as per Orthopedic for DVT ppx but would prefer stable H&H before doing so
-given ongoing hypotension requiring pressor support antihypertensives placed on hold for now, can consider resuming at reduce doses if BP improves off pressors.
-agree ICU Cardio rec's IVC filter placement, following discussion and patient's consent IVC filter placed 06/01
Likely Anemia of Chronic Disease contributing
Iron level otherwise normal
B12 deficiency, high dose supplementation started.
Osteoarthritis of the Knees
Recent Total Right Knee Replacement
-Lidocaine patch Pain medicines oxycodong 2.5 mg Q8HPRN as needed
-Orthopedic eval appreciated
History of QTc prolongation
avoid QT prolonging agents
Left Bundle Branch Block
-Chronic
-Newly diagnosed in April 2022
Chronic Kidney Disease Stage 3a
Gastroesophageal Reflux Disease
Hypertension
-Valsartan Amlodipine Coreg placed on hold d/t ongoing pressor requirement as above
Hyperlipidemia
-Continue Atorvastatin
DVT PPx: Heparin Drip converted to Eliquis since placed on hold d/t concern GI bleed as above, scd ordered
GI ppx: Protonix
Code Status: Full Code
hold PT evaluation for now given pressor requirement
Total Critical Care Time__50___ minutes. I was immediately available to the patient and staff. I personally examined, reviewed labs, diagnostic images/reports, interpretations, treatment plans, discussed patient care with other providers,
patient, and her son Roque, entered orders as appropriate and documented the medical record.
Anticipated Discharge: > 48 hours
Subjective/Interval History
-
Date of Service: June 01, 2023
no acute distress sitting up comfortably in bed. RLE pain swelling improved. Reports overall feeling well although intermittent lightheadedness persists. Son Roque present during evaluation
Objective Data
-
Labs:
Laboratory Results
05/31/23 05/31/23 06/01/23
19:32 21:32 03:17
WBC 8.6 9.6
Hgb Cancelled 8.5 L 9.2 L
Hct Cancelled 24.3 L 26.7 L
Plt Count 169 178
PT 15.1 H
INR 1.21
APTT 28.5
Sodium 134 L
Potassium 4.5
Chloride 101
Carbon Dioxide 30
BUN 27 H
Creatinine 1.1 H
Glucose 118 H
Calcium 8.4
Vital Signs:
Vital Signs
Temp Pulse Resp BP Pulse Ox
97.8 F 69 15 129/75 100
06/01/23 04:00 06/01/23 06:00 06/01/23 06:00 06/01/23 06:00 06/01/23 06:00
I&O
05/30/23 05/31/23 06/01/23
06:59 06:59 06:59
Intake Total 8 / / 1425.1 / 1425.1
Output Total 1500 / 1500
Balance -74.9 / -74.9
--- NOTE | 2023-06-01 07:25 | W.PN.INTV ---
Today's Communication / Plan
Recommendations
Hold anticoagulation
Plan for IVC filter later today
Weaned off pressors
Follow hemoglobin
Continue aspirin therapy at orthopedic request
Assessment
-
Patient is a 78 year old F with past medical history of CAD, takotsubo cardiomyopathy, HTN, OA s/p R TKR (8 days ago, with Dr. Batres), CKD 3A, HTN presenting to ER with acute onset chest pain day of admission.� She notes that there was
associated radiation to back and pain with deep inspiration.� CT chest obtained showing filling defects in the right middle lobe pulmonary arteries consistent with pulmonary embolism.� We are consulted for eval 05/28/23.
Acute submassive PE (RML), provoked following recent orthopedic surgery (right TKA)
Acute hypotension in setting of acute anemia
required transfusion
B/L LE swelling --> now her RLE is swollen and left leg appears WNL
Pleuritic chest pain
Anemia
Mild hyponatremia
OA s/p R TKR 05/20/23
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
Nonobstructive CAD
Stress-induced takotsubo cardiomyopathy
Hypertension
Osteoarthritis of the Knees
History of QTc prolongation
Left Bundle Branch Block
Chronic Kidney Disease Stage 3a
Gastroesophageal Reflux Disease
Hyperlipidemia
Atopic Dermatitis
Acne Rosacea� �
H- Pylori� �
Basal cell carcinoma - nose s/p excision
Liver cysts� �
s/p bilateral Tubal Ligation� �
knee arthroscopy for torn meniscus� �
benign breast tumor excision� �
Plan/recommendations
At this time, patient appears to be comfortable
Drop in hemoglobin noted, marginal blood pressure noted, received 2 units of blood.
Off pressors
Patient denies shortness of breath, chest pain
Right lower extremity ecchymoses noted, distal pulses intact
Hemoglobin stable at 9.2
Right lower extremity imaging ruled out any active extravasation
Moving forward
Continue with management, remains off Eliquis or heparin drip at this time
Plan for IVC filter given large hematoma noted per imaging
Reviewed with interventional radiology and orthopedic surgery. IJ approach
ECHO in past reviewed--normal function
She has history of Takotsubo CM, nonobs CAD
No acute issues noted
Can monitor for now, repeat ECHO
Trops neg
LE swelling noted (R>L), neg for DVT
Continue aspirin therapy per orthopedic surgery
Tubigrip's to help with LE swelling as able
Continue to follow hemoglobin. Repeat later p.m.
No indication for PPI therapy. No evidence of GI bleed
Hypoxia noted overnight, likely apnea related improved with 2 L
Follow-up
Will need outpatient pulmonary evaluation in our office for PFTs and 6MWT
Reviewed with patient
Risk factors assessed for underlying sleep disordered breathing also noted, recommend outpatient PSG/sleep evaluation
Reviewed with critical care nursing, respiratory care, pharmacy
Updated son at length at bedside
Reviewed with orthopedic surgery, interventional radiology, primary service
TCCT 31 min
Diagnostic Data
Duplex 05/28/23- IMPRESSION: No evidence of deep venous thrombosis bilaterally.
CTA chest 05/28/23- FINDINGS: There are small filling defects in the right middle lobe pulmonary artery consistent with pulmonary embolism. No aortic dissection. Great vessels at the aortic arch are widely patent.
Minimal biapical pleural thickening. Minimal dependent atelectasis. Scarring in the lung bases versus atelectasis. No pleural effusion. No focal airspace process. No pneumothorax.
The heart size is mildly enlarged. Mild coronary artery calcifications. Small pericardial effusion. There is no axillary, mediastinal or hilar adenopathy.
ECHO 03/03/23- Normal left ventricular size, wall thickness and systolic function.� No�regional wall motion abnormalities are seen. Estimated ejection fraction is 55-�60%.�No significant valvular disease.�Compared to previous echo from August 2022,
there is no significant change�
Subjective Dataa
Subjective Data
Date of Service:
Date of Service: June 01, 2023
Subjective:
Patient is without complaints. Denies chest pain, chest tightness, nausea, abdominal pain, shortness of breath. Status post 2 units of blood. Norepinephrine drip being weaned off. Son at bedside. Patient appears to be in good spirits.
Objective Data
Data Reviewed
Vital Signs / I&O / Oxygen:
Vital Signs
Temp Pulse Resp BP Pulse Ox
97.2 F 69 15 129/75 100
06/01/23 07:16 06/01/23 06:00 06/01/23 06:00 06/01/23 06:00 06/01/23 06:00
Intake and Output
05/31/23 06/01/23 06/02/23
06:59 06:59 06:59
Intake Total 980 / 980 1425.1 / 1425.1
Output Total 1500 / 1500
Balance 980 / 980 -74.9 / -74.9
SaO2 100
Nasal Cannula flow liters per 2
minute
Physical Exam
General: Comfortable
HEENT: Normocephalic and Anicteric
Cardiovascular: S1-S2, Regular Rhythm, Murmur (n), Peripheral Edema (Right knee swelling, right lower extremity ecchymoses noted), Calf Tenderness (n) and Other (Pulses intact)
Respiratory: Wheeze (n), Crackles (n), Rhonchi (n), Non-Labored Respirations and Stridor (n)
GI: Soft, Non Distended and Non Tender
Neurology: Awake, Alert and No Motor Deficits (Moves all extremities)
Skin: Cyanosis (n), Jaundice (n), Rash (n) and Bruising (Right lower extremity)
Labs/Micro/Reports
Lab Data
06/01/23 03:17
06/01/23 03:17
Laboratory Results
06/01/23
03:17
PT 15.1 H
INR 1.21
APTT 28.5
[2023-06-01] MEDS: VITAMIN B-12 1000 MCG PO (08:00)
[2023-06-01] MEDS: THERAGRAN 1 TABLET PO (08:00)
[2023-06-01] MEDS: DIOVAN 160 MG PO (08:00)
[2023-06-01] MEDS: LIDOCAINE 4% PATCH 2 PATCH TOPICAL (08:01)
[2023-06-01] MEDS: PROTONIX 40 MG PO (08:02)
[2023-06-01] MEDS: SENOKOT-S 1 TABLET PO ×2 (08:02→19:43)
[2023-06-01] MEDS: TYLENOL 1000 MG PO ×3 (08:02→21:46)
[2023-06-01] MEDS: ASPIR LOW (ENTERIC COATED) 81 MG PO (08:03)
--- NOTE | 2023-06-01 08:05 | PTCARENOTE ---
Received pt awake and alert.Speech is appropriate.+HAYWARD.Right leg maintained in a straight position as ordered.Denies pain.SR with BBB noted.Lungs CTA.POX 97% on RA.No SOB noted.Appetite good.No BM.c/o constipation ,medicated with Miralax.Voiding
yellow urine via PureWick.Right knee ecchymotic, softly edematous.Aquacel intact.Pt's son at bedside.Plan of care discussed.
--- NOTE | 2023-06-01 09:34 | W.PN.CARDCBS ---
Today's Communication / Plan
-
Hold parameters on cardiomyopathy/antihypertensive medication
Hemoglobin and hemodynamic stable status post blood transfusion
Agree with IVC filter
Impression / Plan
-
Primary care physician is Dr. Halina Parker
Primary door to door sales representative is Dr. Barbara Patel
Impression:
-Acute pulmonary embolism
-Hypertension in the setting of anemia
-Hematoma and blood loss
-Severe anemia, presumably blood loss requiring transfusion
-Orthostatic hypotension
-Remote history of Takotsubo cardiomyopathy April 2022, wall motion abnormalities/cardiomyopathy since resolved/normalized, stable over serial echocardiograms
-History of QT prolongation seen at the time of her acute event April 2022, subsequently with resolution of cardiomyopathy, QT interval has normalized/stabilized.
-Hypertension
-Dyslipidemia
-Left bundle branch block
-Large anterior hematoma total knee replacement
Recent Cardiac Data:
-Echocardiogram May 28, 2023 normal left ventricular size and function, normal RV size and function, mild mitral regurgitation, no significant change from March 03, 2023
-EKG May 28, 2023 shows normal sinus rhythm left bundle branch block, normal QT interval and unchanged from previous.
-Lexiscan nuclear stress test March 04, 2023 does not suggest active coronary artery disease. There is perfusion which is mildly decreased, small area, fixed in the apical segment which improves with prone imaging more consistent with soft
tissue attenuation.
Recommendations:
-Status postacute pulmonary embolism. Clinically stable currently. Continue to maintain good preload. Blood pressure stable after transfusion. Thankfully by echocardiogram status post pulmonary embolism there is no obvious RV dysfunction or RV
strain.
-Continue to follow hemoglobin and transfuse as necessary.
-Agree with systems manager regarding IVC filter. Discussed with patient and her son at the bedside.
-As previously noted no need for aspirin.
-With recent symptomatic hypotension will place hold parameters on medication.
-Previously noted Takotsubo cardiomyopathy. Recent ejection fraction remains normal. Eventually resume outpatient cardiac medications when stable.
-Telemetry stable.
78-year-old female with past medical history of Takotsubo cardiomyopathy (no obst CAD by cath 04/29/22) and subsequent echocardiogram showing resolution of all wall motion abnormality and resolution of QT prolongation, LBBB, hypertension, CKD 3A,
GERD, and hyperlipidemia who underwent a right total knee replacement on May 21, 2023.� On the morning of May 28 she developed acute chest pain and presented to [facility]'s emergency department where evaluation diagnosed PE. CT
scan of the chest showed small filling defects in the right middle lobe pulmonary arteries consistent with pulmonary embolism.� Echocardiogram obtained May 28, 2023 shows normal RV size and function.
Patient initially treated with intravenous heparin then Eliquis.�
Throughout the admission, her hemoglobin has been decreasing (May 28 her hemoglobin was 11.5, May 29 9.9, May 30 9.4, and today 7.9).�She began physical therapy and became lightheaded when out of bed.� She had symptomatic orthostatic
hypotension with her blood pressure decreasing to 78/59.�
Cardiology consultation is requested regarding her orthostatic hypotension and question regarding continued need for aspirin.
Progress Note - Business Services Assistant
Subjective
Date of Service: June 01, 2023
She denies chest pain, palpitations and dizziness
Objective
Labs:
06/01/23 03:17
06/01/23 03:17
Labs
Hgb 9.2 g/dL (12.0-16.0) L 06/01/23 03:17
Hct 26.7 % (37.0-47.0) L 06/01/23 03:17
Plt Count 178 10^3/uL (130-400) 06/01/23 03:17
PT 15.1 Sec (11.4-14.6) H 06/01/23 03:17
INR 1.21 06/01/23 03:17
APTT 28.5 Sec (23.4-35.0) 06/01/23 03:17
Sodium 134 mmol/L (135-145) L 06/01/23 03:17
Potassium 4.5 mmol/L (3.5-5.1) 06/01/23 03:17
BUN 27 mg/dl (7-17) H 06/01/23 03:17
Creatinine 1.1 mg/dL (0.6-1.0) H 06/01/23 03:17
Glucose 118 mg/dl (70-99) H 06/01/23 03:17
Troponins
05/29/23 05/29/23
11:27 23:45
Troponin I < 0.012 < 0.012
Vital Signs and I&O:
Vital Signs
Temp Pulse Resp BP Pulse Ox
98.4 F 76 15 119/78 100
06/01/23 07:16 06/01/23 08:00 06/01/23 06:00 06/01/23 08:00 06/01/23 06:00
Vital Signs
Temp Pulse Resp BP Pulse Ox
98.4 F 76 15 119/78 100
06/01/23 07:16 06/01/23 08:00 06/01/23 06:00 06/01/23 08:00 06/01/23 06:00
Intake & Output
05/30/23 05/31/23 06/01/23 06/02/23
06:59 06:59 06:59 06:59
Intake Total 948 / 948 980 / 980 1425.1 / 1425.1
Output Total 1500 / 1500
Balance 948 / 948 980 / 980 -74.9 / -74.9
Physical Exam
Physical Exam
General: Well developed, well nourished in NAD.
Heart: Non displaced PMI, RRR, no murmurs, No S3, S4, no rubs.
Lungs: Clear to auscultation bilaterally, no wheeze, rhonchi, rubs bilaterally,
Extremities: No clubbing, cyanosis or right knee and lower extremity ecchymotic and swollen
Neuro: Grossly nonfocal, awake, alert and oriented x3.
--- NOTE | 2023-06-01 09:40 | W.PN.UPDATE ---
Update Note
Progress Note Update
Appreciate input from GI and vascular surgery, as well as the hospitalist team and cardiology. No surgical intervention necessary at this time. As you know patient status post right TKA back on [address] Batres. developed small
filling defect PEs, noted on CT, associated with some chest pain. was initially heparinized and has been determining whether or not Eliquis was financially viable. did have a steady drop in Hgb since admission on 28 May 2023. Status post
blood transfusion yesterday. Hgb currently sitting at 9.2. patient comfortable in bed this morning, with her son, Roque, at the bedside. Dressing CDI. compartments of the right lower leg soft and nontender, but quite edematous. no evidence of
compartment syndrome. DNVI RLE. Continue treatment per the primary team. if deemed safe PT would be beneficial while admitted. Dr. Batres to see patient later today. Will follow
[2023-06-01] MEDS: MIRALAX 17 GRAMS PO (11:42)
--- NOTE | 2023-06-01 13:47 | PTCARENOTE ---
Pt assessed.No change in assessment noted.Awaiting IR.
--- NOTE | 2023-06-01 16:13 | PTCARENOTE ---
Pt assessed.no change in assessment noted.Pt transported to IR via bed.
--- NOTE | 2023-06-01 16:15 | CM ---
CM following re: discharge planning.
Discussed in Rounds, reviewed pt's chart, met with pt and pt's son Anthony at bedside.
Pt's son stated he provides 24/7 care for pt at home and he stated pt will return back home with [facility] and he will continue provide=ing necessary care.
Please fax discharge instructions to [facility] at discharge: [phone].
D/C plan: home with [facility] and family support. Son Anthony to transport home.
CM will follow with discharge plan updates as hospitalization progresses
--- NOTE | 2023-06-01 17:41 | PTCARENOTE ---
Pt transported from IR to ICU.Pt is awake and alert.Speech is appropriate.Orthopedic MD at bedside.
[2023-06-01] MEDS: LIPITOR 20 MG PO (18:14)
[2023-06-01 18:22] LABS: Hemoglobin 8.5 g/dL (12.0-16.0)
--- NOTE | 2023-06-01 18:30 | PTCARENOTE ---
PM care completed.
--- NOTE | 2023-06-01 20:00 | PTCARENOTE ---
Rec'd pt resting in bed, faily at bedside, denies pain, SR w/ BBB, + pulses, R knee/leg edeamatous, soft, ecchymotic, aquacell dsg intact,good sensation R foot, RA, lungs clear, sat 95, + bowel sounds, no bm, abd soft/nontender, opal diet, purewick
changed- voiding yellow urine
--- NOTE | 2023-06-01 20:44 | PTCARENOTE ---
KERA Henning aware of bp- levophed gtt restarted at 2mic per order- to maintain SBP > 90- see flwo sheet for titrations
[2023-06-01 23:37] LABS: Hematocrit 21.7 % (37.0-47.0); Hemoglobin 7.8 g/dL (12.0-16.0)
--- NOTE | 2023-06-01 23:48 | PTCARENOTE ---
sys reviewed, hgb 7.8- B KERA Scott aware, sats drop to 85% when sleeping, 2 liters nc applied, sat 96
[2023-06-02] VITALS (39 sets, daily range): BP systolic 87–142; BP diastolic 54–79; PULSE 85–87; O2SAT 93–98; BMI 27.7
[2023-06-02 00:01] LABS: Transferrin 204 mg/dL (200-360)
--- NOTE | 2023-06-02 00:21 | PTCARENOTE ---
1 unit prbc hung per order
--- NOTE | 2023-06-02 04:29 | PTCARENOTE ---
sys reviewed, resting comf, no c/o
[2023-06-02 04:36] LABS: Hematocrit 25.1 % (37.0-47.0); Hemoglobin 8.6 g/dL (12.0-16.0); Mean Corp Hgb Conc. 34.3 g/dL (33.0-37.0); Mean Corpuscular Hgb 30.6 pg (27.0-31.0); Mean Corpuscular Volume 89.3 fL (81.0-99.0); Mean Platelet Volume 9.4 fL (7.4-10.4); Platelet Count 164 10^3/uL (130-400); Red Blood Cell Count 2.81 10^6/uL (4.20-5.40); Red Cell Dist. Width 15.7 % (11.5-14.5); White Blood Cell Count 9.7 10^3/uL (4.8-10.8)
[2023-06-02 05:00] LABS: Blood Urea Nitrogen 26 mg/dl (7-17); Calcium 8.2 mg/dl (8.4-10.2); Carbon Dioxide 31 mmol/L (22-30); Chloride 100 mmol/L (98-107); Estimated Creatinine Clearance 56 ml/min; Glucose 106 mg/dl (70-99); Potassium 4.7 mmol/L (3.5-5.1); Sodium 133 mmol/L (135-145); eGFR > 60.00
--- NOTE | 2023-06-02 07:28 | W.PN.HOSP.TC ---
Addendum entered and electronically signed by Juana Lobo MD 06/03/23 09:12:
hemorrhagic shock resolved
anemia due to acute blood loss and B12 deficiency
Original Note:
Today's Communication/Plan
-
downgrade to Tele
cont hold antihypertensives
PT/OT
monitor H&H
Assessment / Plan
Assessment / Plan
Physical Exam
General: No Apparent Distress
HEENT: Normocephalic and Moist mucous membranes
Respiratory: Clear
Cardiac: S1/S2 and Regular Rhythm
GI: Soft, Non Tender and Normal Bowel Sounds
Musculoskeletal: No Cyanosis, Edema, Left Lower Extremity and Edema, Right Lower Extremity (RLE with significantly more swelling than the left. Surgical bandage in place at the right knee.)
Skin: Warm and Dry
Neuro: Awake, Alert and AO x 3
Psych: Calm and Intact Judgment/Insight

Echocardiogram report as per cardiology:
'CONCLUSIONS
�1.� Left ventricle: Normal size and function with an estimated ejection
�fraction of 60-65%
�2.� Right ventricle: Normal
�3.� Atria: Normal
�4.� Mitral valve: Mild mitral regurgitation
�5.� Aortic valve: No aortic stenosis or aortic insufficiency
�6.� Tricuspid valve: Mild tricuspid regurgitation with estimated pulmonary
�artery systolic pressures of 27 mmHg
�7.� When compared to the most recent echocardiogram from 03/03/2023 there is
�been no significant change'
Assessment/Plan
Right-Sided Pulmonary Embolism, Concern for Being provoked from recent surgery
History of Nonobstructive Coronary Artery Disease
Stress-induced takotsubo cardiomyopathy
Hypertension, Significant Orthostatic Hypotension during stay here
-Heparin Drip VTE protocol converted to Eliquis 05/30 last dose 05/31 morning placed on hold d/t worsening anemia no obvious signs of bleeding
-Troponin consistently neg, no chest pain
-Consulted pulmonary, recommendations appreciated
-Echocardiogram results as above
-Continue home statin and Aspirin
-Continue Coreg dose reduced to 12.5 mg BID from 25 later discontinued due to low pressures and concerns active bleeding suppressing physiologic tachycardia
-GI eval appreciated, anemia was determined to be due to RLE bleed large hematoma as below, no further gi evaluation necessary at this time
05/31 transfer to IMU due to hypotension ongoing drop in hgb
Blood pressure low later in day symptomatic light headed dizziness though Awake Alert Conversant throughout
SBP 70s 80s despite 1PRBC 250 cc IVF bolus x2
RLE also appeared more swollen mottled appearance compared to earlier in day
patient transferred to ICU for levophed pressor support closer monitoring
RLE CTA notable for large hematomas but no active bleeding
initial transfusion 1PRBC for Hgb 8.0 noted poor response 7.6 subsequently improved following 2nd transfusion to Hgb 8.5
-Cardio eval appreciated from cardiac perspective ASA not necessary at this time, discontinued for now, could consider resuming therapeutic Aspirin as per Orthopedic for DVT ppx but would prefer stable H&H before doing so
-given ongoing hypotension requiring pressor support antihypertensives placed on hold for now, pressures since improved weaned off pressors.
-IR eval appreciated IVC filter placed 06/01
-Hgb since improved, weaned off pressors, stable for downgrade Tele 06/02
Likely Anemia of Chronic Disease contributing
Iron level otherwise normal
B12 deficiency, high dose supplementation started.
Osteoarthritis of the Knees
Recent Total Right Knee Replacement
-Lidocaine patch Pain medicines oxycodong 2.5 mg Q8HPRN as needed
-Orthopedic eval appreciated
History of QTc prolongation
avoid QT prolonging agents
Left Bundle Branch Block
-Chronic
-Newly diagnosed in April 2022
Chronic Kidney Disease Stage 3a
Gastroesophageal Reflux Disease
Hypertension
-Valsartan Amlodipine Coreg placed on hold d/t ongoing pressor requirement. Since weaned off pressors but would continue to hold antihypertensives for now due to low normotensive pressures
Hyperlipidemia
-Continue Atorvastatin
DVT PPx: Heparin Drip converted to Eliquis since placed on hold d/t concern GI bleed as above, scd ordered
GI ppx: Protonix
Code Status: Full Code
Medically stable for downgrade to Tele
discussed with patient and her son Roque, Neurourologist, Cardiology
I spent a total of 50 minutes with the patient or on the floor. More than 50% of this time involved counseling and coordination of care.
Anticipated Discharge: 24 - 48 hours
Subjective/Interval History
-
Date of Service: June 02, 2023
No acute distress sitting up comfortably in chair. Reports overall improvement in symptoms. Son Roque present during evaluation.
Objective Data
-
Labs:
Laboratory Results
06/01/23 06/02/23
23:24 04:24
WBC 9.7
Hgb 7.8 L 8.6 L
Hct 21.7 L 25.1 L
Plt Count 164
Sodium 133 L
Potassium 4.7
Chloride 100
Carbon Dioxide 31 H
BUN 26 H
Creatinine 0.9
Glucose 106 H
Calcium 8.2 L
Vital Signs:
Vital Signs
Temp Pulse Resp BP Pulse Ox
98.7 F 77 15 116/75 98
06/02/23 04:02 06/02/23 06:00 06/02/23 06:00 06/02/23 06:00 06/02/23 06:00
I&O
06/01/23 06/02/23 06/03/23
06:59 06:59 06:59
Intake Total 1425.1 / 1425.1 925.1 / 925.1
Output Total 1500 / 1500 1900 / 1900
Balance -74.9 / -74.9 -974.9 / -974.9
--- NOTE | 2023-06-02 07:51 | W.PN.INTV ---
Addendum entered and electronically signed by Manda Crawley MD 06/02/23 14:01:
Patient transferred out of ICU
Pulmonary follow-up instructions left in chart
We will sign off. Please call with questions
Original Note:
Today's Communication / Plan
Recommendations
Weaned off pressors
Follow hemoglobin
Aspirin has been discontinued
Out of bed to chair, PT/OT
Bowel regimen
Assessment
-
Patient is a 78 year old F with past medical history of CAD, takotsubo cardiomyopathy, HTN, OA s/p R TKR (8 days ago, with Dr. Batres), CKD 3A, HTN presenting to ER with acute onset chest pain day of admission.� She notes that there was
associated radiation to back and pain with deep inspiration.� CT chest obtained showing filling defects in the right middle lobe pulmonary arteries consistent with pulmonary embolism.� We are consulted for eval 05/28/23.
Acute PE (RML), provoked following recent orthopedic surgery (right TKA)
Dopplers negative PE
s/p IVC filter 06/01
Acute hypotension in setting of acute anemia
required transfusion
B/L LE swelling --> now her RLE is swollen and left leg appears WNL
Pleuritic chest pain
Anemia
Mild hyponatremia
OA s/p R TKR 05/20/23
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
Nonobstructive CAD
Stress-induced takotsubo cardiomyopathy
Hypertension
Osteoarthritis of the Knees
History of QTc prolongation
Left Bundle Branch Block
Chronic Kidney Disease Stage 3a
Gastroesophageal Reflux Disease
Hyperlipidemia
Atopic Dermatitis
Acne Rosacea� �
H- Pylori� �
Basal cell carcinoma - nose s/p excision
Liver cysts� �
s/p bilateral Tubal Ligation� �
knee arthroscopy for torn meniscus� �
benign breast tumor excision� �
Plan/recommendations
At this time, patient appears to be comfortable
Drop in hemoglobin noted, marginal blood pressure noted, received 3 units of blood.
Required brief pressors overnight, now off
Patient denies shortness of breath, chest pain
Right lower extremity ecchymoses noted, distal pulses intact
Hemoglobin stable at 8.6
Right lower extremity imaging ruled out any active extravasation
Moving forward
Continue with management, remains off Eliquis or heparin drip at this time
Aspirin also has been discontinued
IVC filter in place
Out of bed to chair, PT/OT
ECHO in past reviewed--normal function
She has history of Takotsubo CM, nonobs CAD
No acute issues noted
Can monitor for now, repeat ECHO
Trops neg
LE swelling noted (R>L), neg for DVT
Aspirin has been discontinued, okay with cardiology
Tubigrip's to help with LE swelling as able
Continue to follow hemoglobin. Repeat later p.m.
No indication for PPI therapy. No evidence of GI bleed
Hypoxia noted overnight, likely apnea related improved with 2 L
Suspect possible sleep disordered breathing
Recommend positional therapy
Follow-up
Passing gas, no bowel movement for 4 days
Bowel regimen
Will need outpatient pulmonary evaluation in our office for PFTs and 6MWT
Reviewed with patient
Risk factors assessed for underlying sleep disordered breathing also noted, recommend outpatient PSG/sleep evaluation
Reviewed with critical care nursing, respiratory care, pharmacy
Updated son at length at bedside
TCCT 31 min
Diagnostic Data
Duplex 05/28/23- IMPRESSION: No evidence of deep venous thrombosis bilaterally.
CTA chest 05/28/23- FINDINGS: There are small filling defects in the right middle lobe pulmonary artery consistent with pulmonary embolism. No aortic dissection. Great vessels at the aortic arch are widely patent.
Minimal biapical pleural thickening. Minimal dependent atelectasis. Scarring in the lung bases versus atelectasis. No pleural effusion. No focal airspace process. No pneumothorax.
The heart size is mildly enlarged. Mild coronary artery calcifications. Small pericardial effusion. There is no axillary, mediastinal or hilar adenopathy.
ECHO 03/03/23- Normal left ventricular size, wall thickness and systolic function.� No�regional wall motion abnormalities are seen. Estimated ejection fraction is 55-�60%.�No significant valvular disease.�Compared to previous echo from August 2022,
there is no significant change�
Subjective Dataa
Subjective Data
Date of Service:
Date of Service: June 02, 2023
Subjective:
Patient appears to be in good spirits. Denies chest pain, shortness of breath, abdominal pain, nausea. Has persistent right leg discomfort. Received transfusion overnight, required pressors briefly, for hypotension
Objective Data
Data Reviewed
Vital Signs / I&O / Oxygen:
Vital Signs
Temp Pulse Resp BP Pulse Ox
98.7 F 77 15 116/75 98
06/02/23 04:02 06/02/23 06:00 06/02/23 06:00 06/02/23 06:00 06/02/23 06:00
Intake and Output
06/01/23 06/02/23 06/03/23
06:59 06:59 06:59
Intake Total 1425.1 / 1425.1 925.1 / 925.1
Output Total 1500 / 1500 1900 / 1900
Balance -74.9 / -74.9 -974.9 / -974.9
SaO2 98
Nasal Cannula flow liters per 2
minute
Physical Exam
General: Comfortable
HEENT: Normocephalic and Anicteric
Cardiovascular: S1-S2, Regular Rhythm, Murmur (n), Peripheral Edema (Right knee swelling, right lower extremity ecchymoses noted), Calf Tenderness (n) and Other (Pulses intact)
Respiratory: Wheeze (n), Crackles (n), Rhonchi (n), Non-Labored Respirations and Stridor (n)
GI: Soft, Non Distended and Non Tender
Neurology: Awake, Alert and No Motor Deficits (Moves all extremities)
Skin: Cyanosis (n), Jaundice (n), Rash (n) and Bruising (Right lower extremity)
Labs/Micro/Reports
Lab Data
06/02/23 04:24
06/02/23 04:24
[2023-06-02] MEDS: LIDOCAINE 4% PATCH 2 PATCH TOPICAL (07:54)
[2023-06-02] MEDS: THERAGRAN 1 TABLET PO (07:55)
[2023-06-02] MEDS: TYLENOL 1000 MG PO ×3 (07:55→21:32)
[2023-06-02] MEDS: MIRALAX 17 GRAMS PO (07:55)
[2023-06-02] MEDS: SENOKOT-S 1 TABLET PO ×2 (07:56→20:01)
[2023-06-02] MEDS: VITAMIN B-12 1000 MCG PO (07:56)
--- NOTE | 2023-06-02 08:13 | PN.CDI ---
CDI
- -
CDI:
Physician Documentation Request
Admit Date: 05/28/23 15:53
Dear Doctor Yamil,
Clinical Indicators:
Patient admitted with right sided pulmonary embolism. PMH includes CKD 3a.
06/01 PN, '...anemia was determined to be due to RLE bleed large hematoma...Likely Anemia of Chronic Disease contributing B12 deficiency, high dose supplementation started.'
PRBCs 3 units transfused.
Hgb/Hct trend:
05/28/23 05/31/23 06/01/23
09:47 15:52 23:24
Hgb 11.4 L 7.6 L 7.8 L
Hct 33.2 L 21.8 L 21.7 L
Based on the above, could you clarify, in your progress note, which of the following is the most likely type of anemia you are evaluating, monitoring and/or treating?
Anemia, multifactorial due to acute blood loss, vitamin B deficiency and CKD
Anemia of chronic disease only - indicate if CKD or other
Vitamin B deficiency anemia only
Other, please specify
Use of terms such as suspected, likely, concern for, or probable (associated with a specific diagnosis that is being evaluated, monitored, or treated as if it exists) are acceptable and can be coded in the inpatient setting, when documented at the
time of discharge.
Thank you,
DAVE Darby RN
CDI Specialist
available via tiger text
Please use your independent medical judgment in providing your response.
--- NOTE | 2023-06-02 08:22 | W.PN.CARDCBS ---
Today's Communication / Plan
-
Echo without signs of RV strain.
Monitor H/H and transfuse to support hemoglobin as needed.
HR and bp stable. Valsartan and Norvasc held for prior hypotension. Off pressors.
If bp remains stable resume Valsartan next 24 hrs and then Norvasc
Cont anticoagulation. No clinical need for ASA and this has been stopped.
Previously noted Takotsubo cardiomyopathy with recovered EF.
Reviewed with family at bedside and with nursing.
Impression / Plan
-
.
Primary care physician is Dr. Halina Parker
Primary animal rehabilitator is Dr. Barbara Patel
Impression:
-Acute pulmonary embolism s/p IVC filter
-Hypertension in the setting of anemia
-Hematoma and blood loss
-Severe anemia, presumably blood loss requiring transfusion
-Orthostatic hypotension
-Remote history of Takotsubo cardiomyopathy April 2022, wall motion abnormalities/cardiomyopathy since resolved/normalized, stable over serial echocardiograms
-History of QT prolongation seen at the time of her acute event April 2022, subsequently with resolution of cardiomyopathy, QT interval has normalized/stabilized.
-Hypertension
-Dyslipidemia
-Left bundle branch block
-Large anterior hematoma total knee replacement
Recent Cardiac Data:
-Echocardiogram May 28, 2023 normal left ventricular size and function, normal RV size and function, mild mitral regurgitation, no significant change from March 03, 2023
-EKG May 28, 2023 shows normal sinus rhythm left bundle branch block, normal QT interval and unchanged from previous.
-Lexiscan nuclear stress test March 04, 2023 does not suggest active coronary artery disease. There is perfusion which is mildly decreased, small area, fixed in the apical segment which improves with prone imaging more consistent with soft
tissue attenuation.
Plan:
Echo without signs of RV strain.
Monitor H/H and transfuse to support hemoglobin as needed.
HR and bp stable. Valsartan and Norvasc held for prior hypotension. Off pressors.
If bp remains stable resume Valsartan next 24 hrs and then Norvasc
Remains off anticoagulation. IVC filter in place. No clinical need for ASA and this has been stopped.
Previously noted Takotsubo cardiomyopathy with recovered EF.
Pt being transferred out of ICU
Reviewed with family at bedside and with nursing.
78-year-old female with past medical history of Takotsubo cardiomyopathy (no obst CAD by cath 04/29/22) and subsequent echocardiogram showing resolution of all wall motion abnormality and resolution of QT prolongation, LBBB, hypertension, CKD 3A,
GERD, and hyperlipidemia who underwent a right total knee replacement on May 21, 2023.� On the morning of May 28 she developed acute chest pain and presented to [facility]'s emergency department where evaluation diagnosed PE. CT
scan of the chest showed small filling defects in the right middle lobe pulmonary arteries consistent with pulmonary embolism.� Echocardiogram obtained May 28, 2023 shows normal RV size and function.
Patient initially treated with intravenous heparin then Eliquis.�
Throughout the admission, her hemoglobin has been decreasing (May 28 her hemoglobin was 11.5, May 29 9.9, May 30 9.4, and today 7.9).�She began physical therapy and became lightheaded when out of bed.� She had symptomatic orthostatic
hypotension with her blood pressure decreasing to 78/59.�
Cardiology consultation is requested regarding her orthostatic hypotension and question regarding continued need for aspirin.
Progress Note - [employer]
Subjective
Date of Service: June 02, 2023
Pt seen and examined. No complaints. No chest pain or shortness of breath.
Objective
Labs:
06/02/23 04:24
06/02/23 04:24
Labs
Hgb 8.6 g/dL (12.0-16.0) L 06/02/23 04:24
Hct 25.1 % (37.0-47.0) L 06/02/23 04:24
Plt Count 164 10^3/uL (130-400) 06/02/23 04:24
PT 15.1 Sec (11.4-14.6) H 06/01/23 03:17
INR 1.21 06/01/23 03:17
APTT 28.5 Sec (23.4-35.0) 06/01/23 03:17
Sodium 133 mmol/L (135-145) L 06/02/23 04:24
Potassium 4.7 mmol/L (3.5-5.1) 06/02/23 04:24
BUN 26 mg/dl (7-17) H 06/02/23 04:24
Creatinine 0.9 mg/dL (0.6-1.0) 06/02/23 04:24
Glucose 106 mg/dl (70-99) H 06/02/23 04:24
Vital Signs and I&O:
Vital Signs
Temp Pulse Resp BP Pulse Ox
98.7 F 77 15 116/75 98
06/02/23 04:02 06/02/23 06:00 06/02/23 06:00 06/02/23 06:00 06/02/23 06:00
Vital Signs
Temp Pulse Resp BP Pulse Ox
98.7 F 77 15 116/75 98
06/02/23 04:02 06/02/23 06:00 06/02/23 06:00 06/02/23 06:00 06/02/23 06:00
Intake & Output
05/31/23 06/01/23 06/02/23 06/03/23
06:59 06:59 06:59 06:59
Intake Total 980 / 980 1425.1 / 1425.1 925.1 / 925.1
Output Total 1500 / 1500 1900 / 1900
Balance 980 / 980 -74.9 / -74.9 -974.9 / -974.9
Physical Exam
Physical Exam
General: No acute distress, AAOX3
Neck: Negative JVD
Heart: Regular, Negative S3 positive S1/S2, Negative S4, No murmur
Lungs: CTA b/l, negative wheezes/rales/rhonchi
Abd: Positive BS, NT/ND, neg rebound/rigidity/guarding
Ext: Negative cyanosis/clubbing/edema
Neuro: nonfocal
--- NOTE | 2023-06-02 08:31 | PN.CDI ---
CDI
- -
CDI:
Physician Documentation Request
Admit Date: 05/28/23 15:53
Dear Doctor Yamil,
Clinical Indicators:
Patient admitted with right sided pulmonary embolism; RLE noted for large hematoma, but no active bleeding.
05/31 PN, 'SBP 70s 80s despite 1PRBC 250 cc IVF bolus x2...patient to be transferred to ICU for pressor support closer monitoring'
05/31 Cardiology consult, 'Her orthostasis is likely related to her progressive and now severe anemia.'
Hgb down to 7.6; PRBCs 3 units transfused.
Levophed requirements: 05/31 2- 4 mcg/min
06/01 1- 3 mcg/min
B/P, MAP trend:
05/31/23
19:00 05/31/23
19:49 05/31/23
22:00
Blood pressure 90/45 69/52 92/35
MAP (cuff-Steph Monitor) 59 59 52
05/31/23
22:30 05/31/23
23:01 05/31/23
23:30
Blood pressure 92/44 74/41 83/43
MAP (cuff-Steph Monitor) 57 52 56
Please clarify which of the following is the most likely etiology of the above symptoms and treatment rendered:
Hypovolemic shock
Hemorrhagic shock
Orthostatic Hypotension only
Other, please specify
Use of terms such as suspected, likely, concern for, or probable (associated with a specific diagnosis that is being evaluated, monitored, or treated as if it exists) are acceptable and can be coded in the inpatient setting, when documented at the
time of discharge.
Thank you,
DAVE Darby RN
CDI Specialist
available via tiger text
Please use your independent medical judgment in providing your response.
[2023-06-02] MEDS: ROXICODONE 2.5 MG PO ×2 (09:42→21:35)
--- NOTE | 2023-06-02 10:52 | PTCARENOTE ---
Was talking with pt and son Anthony today and were discussing tumeric, son reporting giving Mom a tumeric shot 'once in a while'. I mentioned that surgical patients should not be taking tumeric due to risk of bleeding, he said he was unaware of this
and pt looked at son and he said he would not give her any more.
--- NOTE | 2023-06-02 12:36 | PTCARENOTE ---
Pt falling asleep in chair and bp borderline. Assisted back to bed. Pt initially lightheaded with standing but recovered after a few seconds. Repeat hh sent, Bp improved once back in bed.
[2023-06-02 12:40] LABS: Hemoglobin 9.1 g/dL (12.0-16.0)
--- NOTE | 2023-06-02 13:19 | CM ---
CM following re: discharge planning.
Discussed in Rounds, reviewed pt's chart, met with pt.
Pt stated her son Anthony provides 03/11 care for her at home and she expressed her desire to return back home with [facility].
A referral to [facility] made.
Please fax discharge instructions to [facility] at discharge: [phone].
D/C plan: home with [facility] and family support. [facility] to transport home at discharge.
CM will follow with discharge plan updates as hospitalization progresses
[2023-06-02] MEDS: LIPITOR 20 MG PO (17:31)
--- NOTE | 2023-06-02 17:37 | PTCARENOTE ---
Pt tired and reporting some nausea wanting to go back to bed. Ambulated around room, with encouragement walked to bathroom voided and had very small bm. Assisted back to bed. Tolerated well. Family at bedside t/o day.
--- NOTE | 2023-06-02 20:15 | PTCARENOTE ---
Rec'd pt resting in bed, amb to bathroom w/ rolling walker to void & then back to bed- opal well, SR w/ BBB, + pulses, R leg edematous/ecchy, dsg intact, RA, sat 96, + bowel sounds, abdsoft, no n/v
--- NOTE | 2023-06-02 21:00 | PTCARENOTE ---
report given to floor RN, transferred to rm [id number] via on tele pack accomp by self
--- NOTE | 2023-06-02 22:00 | PTCARENOTE ---
Pt arrived to unit from ICU via wheelchair. Pt is AAOx3, son staying in room overnight. VS on transfer stable. Pt oriented to room, call ward within reach. Will continue to monitor.
[2023-06-03 03:00] VITALS: BP 98/63
--- NOTE | 2023-06-03 04:36 | DOWNTIME ---
There was a [employer] Downtime on 06/03/2023 from 0111 to 06/03/2023 at 0405. Downtime documentation of patient's care, including medication administrations, has been reconciled in the electronic record per guidelines. Refer to the
patient's paper chart under the miscellaneous tab to see printed paper medication records and downtime forms.
--- NOTE | 2023-06-03 07:13 | W.PN.HOSP.TC ---
Today's Communication/Plan
-
cont hold antihypertensives for now
PT/OT
monitor H&H
Assessment / Plan
Assessment / Plan
Physical Exam
General: No Apparent Distress
HEENT: Normocephalic and Moist mucous membranes
Respiratory: Clear
Cardiac: S1/S2 and Regular Rhythm
GI: Soft, Non Tender and Normal Bowel Sounds
Musculoskeletal: No Cyanosis, Edema, RLE dressing clean dry intact swelling much improved large bruise fading
Skin: Warm and Dry
Neuro: Awake, Alert and AO x 3
Psych: Calm and Intact Judgment/Insight

Echocardiogram report as per cardiology:
'CONCLUSIONS
�1.� Left ventricle: Normal size and function with an estimated ejection
�fraction of 60-65%
�2.� Right ventricle: Normal
�3.� Atria: Normal
�4.� Mitral valve: Mild mitral regurgitation
�5.� Aortic valve: No aortic stenosis or aortic insufficiency
�6.� Tricuspid valve: Mild tricuspid regurgitation with estimated pulmonary
�artery systolic pressures of 27 mmHg
�7.� When compared to the most recent echocardiogram from 03/03/2023 there is
�been no significant change'
Assessment/Plan
Right-Sided Pulmonary Embolism, Concern for Being provoked from recent surgery
History of Nonobstructive Coronary Artery Disease
Stress-induced takotsubo cardiomyopathy
Hypertension, Significant Orthostatic Hypotension during stay here
-Heparin Drip VTE protocol converted to Eliquis 05/30 last dose 05/31 morning placed on hold d/t worsening anemia no obvious signs of bleeding
-Troponin consistently neg, no chest pain
-Consulted pulmonary, recommendations appreciated
-Echocardiogram results as above
-Continue home statin and Aspirin
-Continue Coreg dose reduced to 12.5 mg BID from 25 later discontinued due to low pressures and concerns active bleeding suppressing physiologic tachycardia
-GI eval appreciated, anemia was determined to be due to RLE bleed large hematoma as below, no further gi evaluation necessary at this time
05/31 transfer to IMU due to hypotension ongoing drop in hgb
Blood pressure low later in day symptomatic light headed dizziness though Awake Alert Conversant throughout
SBP 70s 80s despite 1PRBC 250 cc IVF bolus x2
RLE also appeared more swollen mottled appearance compared to earlier in day
patient transferred to ICU for levophed pressor support closer monitoring
RLE CTA notable for large hematomas but no active bleeding
initial transfusion 1PRBC for Hgb 8.0 noted poor response 7.6 subsequently improved following 2nd transfusion to Hgb 8.5
-Cardio eval appreciated from cardiac perspective ASA not necessary at this time, discontinued for now, could consider resuming therapeutic Aspirin as per Orthopedic for DVT ppx but would prefer stable H&H before doing so
-given ongoing hypotension requiring pressor support antihypertensives placed on hold for now, pressures since improved weaned off pressors.
-IR eval appreciated IVC filter placed 06/01
-Hgb since improved, weaned off pressors, stable downgraded Tele 06/02
Likely Anemia of Chronic Disease contributing
Iron level otherwise normal
B12 deficiency, high dose supplementation started.
Osteoarthritis of the Knees
Recent Total Right Knee Replacement
-Lidocaine patch Pain medicines oxycodong 2.5 mg Q8HPRN as needed
-Orthopedic eval appreciated
History of QTc prolongation
avoid QT prolonging agents
Left Bundle Branch Block
-Chronic
-Newly diagnosed in April 2022
Chronic Kidney Disease Stage 3a
Gastroesophageal Reflux Disease
Hypertension
-Valsartan Amlodipine Coreg placed on hold d/t ongoing pressor requirement. Since weaned off pressors but would continue to hold antihypertensives for now due to low normotensive pressures
Hyperlipidemia
-Continue Atorvastatin
hemorrhagic shock resolved
anemia due to acute blood loss and B12 deficiency
DVT PPx: SCD
GI ppx: Protonix
Code Status: Full Code
Medically stable for downgrade to Tele
discussed with patient and her son Roque, Competitive Intelligence Analyst, Cardiology
I spent a total of 50 minutes with the patient or on the floor. More than 50% of this time involved counseling and coordination of care.
Anticipated Discharge: 24 - 48 hours
Subjective/Interval History
-
Date of Service: June 03, 2023
No acute distress. Patient reports feeling well. RLE swelling much improved. Son Roque present during evaluation
Objective Data
-
Labs:
Laboratory Results
06/03/23
06:53
WBC Pending
Hgb Pending
Hct Pending
Plt Count Pending
Sodium Pending
Potassium Pending
Chloride Pending
Carbon Dioxide Pending
BUN Pending
Creatinine Pending
Glucose Pending
Calcium Pending
Vital Signs:
Vital Signs
Temp Pulse Resp BP Pulse Ox
97.9 F 83 16 98/63 96
06/03/23 03:00 06/03/23 03:00 06/03/23 03:00 06/03/23 03:00 06/03/23 03:00
I&O
06/02/23 06/03/23 06/04/23
06:59 06:59 06:59
Intake Total 925.1 / 925.1 1130 / 1130
Output Total 1900 / 1900 1000 / 1000
Balance -974.9 / -974.9 130 / 130
[2023-06-03 07:20] VITALS: BP 113/74
[2023-06-03 08:03] LABS: Hemoglobin 8.4 g/dL (12.0-16.0); Mean Corp Hgb Conc. 33.6 g/dL (33.0-37.0); Mean Corpuscular Hgb 31.3 pg (27.0-31.0); Mean Corpuscular Volume 93.3 fL (81.0-99.0); Mean Platelet Volume 9.5 fL (7.4-10.4); Platelet Count 179 10^3/uL (130-400); Red Blood Cell Count 2.68 10^6/uL (4.20-5.40); Red Cell Dist. Width 15.7 % (11.5-14.5); White Blood Cell Count 9.2 10^3/uL (4.8-10.8)
[2023-06-03] MEDS: LIDOCAINE 4% PATCH 2 PATCH TOPICAL (08:17)
[2023-06-03] MEDS: THERAGRAN 1 TABLET PO (08:29)
[2023-06-03] MEDS: SENOKOT-S 1 TABLET PO (08:29)
[2023-06-03] MEDS: TYLENOL 1000 MG PO ×3 (08:29→21:47)
[2023-06-03] MEDS: VITAMIN B-12 1000 MCG PO (08:29)
[2023-06-03 09:06] LABS: Blood Urea Nitrogen 25 mg/dl (7-17); Calcium 8.5 mg/dl (8.4-10.2); Carbon Dioxide 29 mmol/L (22-30); Chloride 97 mmol/L (98-107); Estimated Creatinine Clearance 63 ml/min; Glucose 99 mg/dl (70-99); Potassium 4.2 mmol/L (3.5-5.1); Sodium 133 mmol/L (135-145); eGFR > 60.00
[2023-06-03] MEDS: ROXICODONE 2.5 MG PO ×2 (11:25→21:47)
[2023-06-03 16:10] VITALS: BP 117/81
--- NOTE | 2023-06-03 16:55 | W.PN.CARDCBS ---
Addendum entered and electronically signed by lAexa Geronimo DO 06/03/23 19:50:
I saw and examined the patient.
The Canal Tender's note was reviewed and I agree with the note.
Comment: Seen and examined with son at bedside. Patient out of bed to chair and overall feeling better. On room air without shortness of breath.
General: No acute distress, AAOX3
Heart: Regular, positive S1/S2, No murmur
Lungs: CTA b/l, negative wheezes/rales/rhonchi
Abd: Positive BS, NT/ND, neg rebound/rigidity/guarding
Ext: Right leg status post total knee replacement with ecchymosis and ++ swelling. Surgical dressing present.
Neuro: nonfocal
Plan:
78-year-old female status post right middle lobe pulmonary embolism following recent Right total knee replacement with Dr. Batres
-Provoked pulmonary embolism with Dopplers negative for DVT
-Status post IVC filter 06/01/2023
-Defer decision/timing to start anticoagulation per pulmonary/hospitalist and orthopedics
-2D echocardiogram with normal biventricular size and systolic function and no significant valve pathology. No evidence of pulm hypertension with RVSP estimated 27 mmHg.
-Pulmonary following
Anemia requiring transfusion with right lower extremity hematoma.
-Orthopedics following
-Hemodynamically stable
-Monitor hemoglobin particularly after starting anticoagulation
History of remote Takotsubo's cardiomyopathy with recovered ejection fraction and no evidence of heart failure.
-Recent 2D echocardiogram with normal biventricular systolic function
-Blood pressure stable can consider resuming low-dose Coreg in the morning
Outpatient cardiac follow-up to be arranged
Will sign off, recall if needed
Original Note:
Today's Communication / Plan
-
repeat ortho VS in AM. if negative, add back low dose coreg. uptitrate CM meds as BP allows
asa stopped
Impression / Plan
-
.
Primary care physician is Dr. Halina Parker
Primary director of education and training is Dr. Barbara Patel
Impression:
-Acute pulmonary embolism s/p IVC filter
-Hypertension in the setting of anemia
-Hematoma and blood loss
-Severe anemia, presumably blood loss requiring transfusion
-Orthostatic hypotension
-Remote history of Takotsubo cardiomyopathy April 2022, wall motion abnormalities/cardiomyopathy since resolved/normalized, stable over serial echocardiograms
-History of QT prolongation seen at the time of her acute event April 2022, subsequently with resolution of cardiomyopathy, QT interval has normalized/stabilized.
-Hypertension
-Dyslipidemia
-Left bundle branch block
-Large anterior hematoma total knee replacement
Recent Cardiac Data:
-Echocardiogram May 28, 2023 normal left ventricular size and function, normal RV size and function, mild mitral regurgitation, no significant change from March 03, 2023
-EKG May 28, 2023 shows normal sinus rhythm left bundle branch block, normal QT interval and unchanged from previous.
-Lexiscan nuclear stress test March 04, 2023 does not suggest active coronary artery disease. There is perfusion which is mildly decreased, small area, fixed in the apical segment which improves with prone imaging more consistent with soft
tissue attenuation.
Plan:
-continue treatment of PE per primary service. s/p IVC filter
-remains off OAC. OP asa has been stopped. IVC filter in place
-hgb stable at 8.4
-BP trends improving. history of takotsubo CM with recovered EF. repeat ortho VS in AM. if negative, would plan to resume lower dose of OP coreg with hold parameters. continue to hold valsartan and norvasc for now, and would add back as able
PREADMIT DATA:
78-year-old female with past medical history of Takotsubo cardiomyopathy (no obst CAD by cath 04/29/22) and subsequent echocardiogram showing resolution of all wall motion abnormality and resolution of QT prolongation, LBBB, hypertension, CKD 3A,
GERD, and hyperlipidemia who underwent a right total knee replacement on May 21, 2023.� On the morning of May 28 she developed acute chest pain and presented to [facility]'s emergency department where evaluation diagnosed PE. CT
scan of the chest showed small filling defects in the right middle lobe pulmonary arteries consistent with pulmonary embolism.� Echocardiogram obtained May 28, 2023 shows normal RV size and function.
Patient initially treated with intravenous heparin then Eliquis.�
Throughout the admission, her hemoglobin has been decreasing (May 28 her hemoglobin was 11.5, May 29 9.9, May 30 9.4, and today 7.9).�She began physical therapy and became lightheaded when out of bed.� She had symptomatic orthostatic
hypotension with her blood pressure decreasing to 78/59.�
Cardiology consultation is requested regarding her orthostatic hypotension and question regarding continued need for aspirin.
Progress Note - Supervisor Electrolytic Tinning
Subjective
Date of Service: June 03, 2023
no issues overnight noted
Objective
Labs:
06/03/23 06:53
06/03/23 06:53
Labs
Hgb 8.4 g/dL (12.0-16.0) L 06/03/23 06:53
Hct 25.0 % (37.0-47.0) L 06/03/23 06:53
Plt Count 179 10^3/uL (130-400) 06/03/23 06:53
PT 15.1 Sec (11.4-14.6) H 06/01/23 03:17
INR 1.21 06/01/23 03:17
APTT 28.5 Sec (23.4-35.0) 06/01/23 03:17
Sodium 133 mmol/L (135-145) L 06/03/23 06:53
Potassium 4.2 mmol/L (3.5-5.1) 06/03/23 06:53
BUN 25 mg/dl (7-17) H 06/03/23 06:53
Creatinine 0.8 mg/dL (0.6-1.0) 06/03/23 06:53
Glucose 99 mg/dl (70-99) 02/21/24 06:53
Vital Signs and I&O:
Vital Signs
Temp Pulse Resp BP Pulse Ox
97.9 F 92 18 117/81 95
06/03/23 16:10 06/03/23 16:10 06/03/23 16:10 06/03/23 16:10 06/03/23 16:10
Vital Signs
Temp Pulse Resp BP Pulse Ox
97.9 F 92 18 117/81 95
06/03/23 16:10 06/03/23 16:10 06/03/23 16:10 06/03/23 16:10 06/03/23 16:10
Intake & Output
06/01/23 06/02/23 06/03/23 06/04/23
07:59 07:59 07:59 07:59
Intake Total 1425.1 / 1425.1 925.1 / 925.1 1130 / 1130
Output Total 1500 / 1500 1900 / 1900 1000 / 1000
Balance -74.9 / -74.9 -974.9 / -974.9 130 / 130
[2023-06-03] MEDS: LIPITOR 20 MG PO (18:44)
[2023-06-03 19:10] VITALS: BP 103/71
[2023-06-03] MEDS: SENOKOT-S PO (20:19)
--- NOTE | 2023-06-03 23:00 | PTCARENOTE ---
Pt requesting oxygen overnight. House RADIOLOGY CLERK Kameron Flood notified, order for oxygen placed.
[2023-06-03 23:10] VITALS: BP 108/59
[2023-06-04 03:10] VITALS: BP 114/60
--- NOTE | 2023-06-04 06:44 | W.PN.HOSP.TC ---
Today's Communication/Plan
-
monitor H&H
cont PT/OT
RLE wound care as per Orthopedic
Resume home coreg reduced dose with holding parameters
Assessment / Plan
Assessment / Plan
Physical Exam
General: No Apparent Distress
HEENT: Normocephalic and Moist mucous membranes
Respiratory: Clear
Cardiac: S1/S2 and Regular Rhythm
GI: Soft, Non Tender and Normal Bowel Sounds
Musculoskeletal: No Cyanosis, Edema, RLE dressing clean dry intact swelling much improved large bruise fading
Skin: Warm and Dry
Neuro: Awake, Alert and AO x 3
Psych: Calm and Intact Judgment/Insight

Echocardiogram report as per cardiology:
'CONCLUSIONS
�1.� Left ventricle: Normal size and function with an estimated ejection
�fraction of 60-65%
�2.� Right ventricle: Normal
�3.� Atria: Normal
�4.� Mitral valve: Mild mitral regurgitation
�5.� Aortic valve: No aortic stenosis or aortic insufficiency
�6.� Tricuspid valve: Mild tricuspid regurgitation with estimated pulmonary
�artery systolic pressures of 27 mmHg
�7.� When compared to the most recent echocardiogram from 03/03/2023 there is
�been no significant change'
Assessment/Plan
Right-Sided Pulmonary Embolism, Concern for Being provoked from recent surgery
History of Nonobstructive Coronary Artery Disease
Stress-induced takotsubo cardiomyopathy
Hypertension, Significant Orthostatic Hypotension during stay here
-Heparin Drip VTE protocol converted to Eliquis 05/30 last dose 05/31 morning placed on hold d/t worsening anemia no obvious signs of bleeding
-Troponin consistently neg, no chest pain
-Consulted pulmonary, recommendations appreciated
-Echocardiogram results as above
-Continue home statin and Aspirin
-GI eval appreciated, anemia was determined to be due to RLE bleed large hematoma as below, no further gi evaluation necessary at this time
05/31 transfer to IMU due to hypotension ongoing drop in hgb
Blood pressure low later in day symptomatic light headed dizziness though Awake Alert Conversant throughout
SBP 70s 80s despite 1PRBC 250 cc IVF bolus x2
RLE also appeared more swollen mottled appearance compared to earlier in day
patient transferred to ICU for levophed pressor support closer monitoring
RLE CTA notable for large hematomas but no active bleeding
initial transfusion 1PRBC for Hgb 8.0 noted poor response 7.6 subsequently improved following 2nd transfusion to Hgb 8.5
-Cardio eval appreciated from cardiac perspective ASA not necessary at this time, discontinued for now, could consider resuming therapeutic Aspirin as per Orthopedic for DVT ppx but would prefer stable H&H before doing so
-IR eval appreciated IVC filter placed 06/01
-Hgb since improved, weaned off pressors, stable downgraded Tele 06/02
Likely Anemia of Chronic Disease contributing
Iron level otherwise normal
B12 deficiency, high dose supplementation started.
Osteoarthritis of the Knees
Recent Total Right Knee Replacement
-Lidocaine patch Pain medicines oxycodone 2.5 mg Q8HPRN as needed
-Orthopedic eval appreciated
History of QTc prolongation
avoid QT prolonging agents
Left Bundle Branch Block
-Chronic
-Newly diagnosed in April 2022
Chronic Kidney Disease Stage 3a
Gastroesophageal Reflux Disease
Hypertension
-Valsartan Amlodipine Coreg placed on hold d/t hypotension requiring pressor support as above. Since weaned off pressors. Blood pressures improving, resumed low dose Coreg with holding parameters as per cardio recc's
Hyperlipidemia
-Continue Atorvastatin
hemorrhagic shock resolved
anemia due to acute blood loss and B12 deficiency
DVT PPx: SCD
GI ppx: Protonix
Code Status: Full Code
discussed with patient and her son Roque, Orthopedic
I spent a total of 52 minutes with the patient or on the floor. More than 50% of this time involved counseling and coordination of care.
Anticipated Discharge: 24 - 48 hours
Subjective/Interval History
-
Date of Service: June 04, 2023
no acute distress sitting up comfortably in chair. denies any new acute issues at this time. Reports feeling well at this time. Right lower extremity swelling wound continues to improve.
Objective Data
-
Labs:
Laboratory Results
06/04/23
06:00
WBC Pending
Hgb Pending
Hct Pending
Plt Count Pending
Sodium Pending
Potassium Pending
Chloride Pending
Carbon Dioxide Pending
BUN Pending
Creatinine Pending
Glucose Pending
Calcium Pending
Vital Signs:
Vital Signs
Temp Pulse Resp BP Pulse Ox
97.9 F 87 20 114/60 96
06/04/23 03:10 06/04/23 03:10 06/04/23 03:10 06/04/23 03:10 06/04/23 03:10
I&O
06/02/23 06/03/23 06/04/23
06:59 06:59 06:59
Intake Total 925.1 / 925.1 1130 / 1130 1260 / 1260
Output Total 1900 / 1900 1000 / 1000 1700 / 1700
Balance -974.9 / -974.9 130 / 130 -440 / -440
[2023-06-04 07:46] LABS: Hematocrit 23.1 % (37.0-47.0); Hemoglobin 7.9 g/dL (12.0-16.0); Mean Corp Hgb Conc. 34.2 g/dL (33.0-37.0); Mean Corpuscular Hgb 30.9 pg (27.0-31.0); Mean Corpuscular Volume 90.2 fL (81.0-99.0); Platelet Count 189 10^3/uL (130-400); Red Blood Cell Count 2.56 10^6/uL (4.20-5.40); Red Cell Dist. Width 15.3 % (11.5-14.5); White Blood Cell Count 6.7 10^3/uL (4.8-10.8)
[2023-06-04] MEDS: LIDOCAINE 4% PATCH 2 PATCH TOPICAL (07:52)
[2023-06-04] MEDS: TYLENOL 1000 MG PO ×3 (07:52→22:12)
[2023-06-04] MEDS: VITAMIN B-12 1000 MCG PO (07:52)
[2023-06-04] MEDS: SENOKOT-S 1 TABLET PO ×2 (07:52→20:57)
[2023-06-04] MEDS: THERAGRAN 1 TABLET PO (07:52)
[2023-06-04 07:58] VITALS: BP 120/74
[2023-06-04 08:16] LABS: Blood Urea Nitrogen 24 mg/dl (7-17); Calcium 8.2 mg/dl (8.4-10.2); Carbon Dioxide 30 mmol/L (22-30); Chloride 101 mmol/L (98-107); Estimated Creatinine Clearance 56 ml/min; Glucose 95 mg/dl (70-99); Potassium 4.4 mmol/L (3.5-5.1); Sodium 133 mmol/L (135-145); eGFR > 60.00
[2023-06-04] MEDS: ROXICODONE 2.5 MG PO ×2 (10:56→22:39)
[2023-06-04 16:00] VITALS: BP 117/71
--- NOTE | 2023-06-04 16:06 | CM ---
Met with patient and her son Roque.
Per patient plan is home with [facility] when smedically stable.
Son(s) will also assist at home.
Per patient may be here thru the weekend.
CM will continue to follow.
Plan: home with [facility] when stable, son will transport. .y
--- NOTE | 2023-06-04 16:51 | W.PN.UPDATE ---
Update Note
Progress Note Update
I saw and evaluated the patient at bedside. Reviewed plan of care. Pain well controlled. Awaiting repeat Hb. Worked with physical therapy today
RLE:
Bandage CDI
Neruo intact
Edema and ecchymosis, stable
AP:
Pain well controlled. Discussed range of motion of the right leg. Will await final recommendations for DVT ppx, ASA vs factor X, depending on her hb stability. Recommended keeping bandage intact while inpatient unless acute issues. She'll continue
to work with physical therapy while inpatient. She may follow up as outpatient once stable for discharge for incision check. All questions answered with the patient and her son at bedside.
Abelino Batres MD
[2023-06-04] MEDS: LIPITOR 20 MG PO (17:50)
[2023-06-04 18:10] LABS: Hematocrit 23.6 % (37.0-47.0); Hemoglobin 8.1 g/dL (12.0-16.0)
[2023-06-04 19:30] VITALS: BP 106/57; BP 110/66; BP 112/58; PULSE 101; PULSE 107; PULSE 117
[2023-06-04] MEDS: COREG 3.125 MG PO (20:57)
[2023-06-04 23:10] VITALS: BP 129/77
[2023-06-05] VITALS (7 sets, daily range): BP systolic 105–153; BP diastolic 62–87; PULSE 93–105
--- NOTE | 2023-06-05 07:36 | W.PN.HOSP.TC ---
Today's Communication/Plan
-
start Eliquis 2.5 mg BID dvt ppx dose
monitor H&H
uptitrated Coreg
PT/OT
Assessment / Plan
Assessment / Plan
Physical Exam
General: No Apparent Distress
HEENT: Normocephalic and Moist mucous membranes
Respiratory: Clear
Cardiac: S1/S2 and Regular Rhythm
GI: Soft, Non Tender and Normal Bowel Sounds
Musculoskeletal: No Cyanosis, Edema, RLE dressing clean dry intact swelling much improved large bruise fading
Skin: Warm and Dry
Neuro: Awake, Alert and AO x 3
Psych: Calm and Intact Judgment/Insight

Echocardiogram report as per cardiology:
'CONCLUSIONS
�1.� Left ventricle: Normal size and function with an estimated ejection
�fraction of 60-65%
�2.� Right ventricle: Normal
�3.� Atria: Normal
�4.� Mitral valve: Mild mitral regurgitation
�5.� Aortic valve: No aortic stenosis or aortic insufficiency
�6.� Tricuspid valve: Mild tricuspid regurgitation with estimated pulmonary
�artery systolic pressures of 27 mmHg
�7.� When compared to the most recent echocardiogram from 03/03/2023 there is
�been no significant change'
Assessment/Plan
Right-Sided Pulmonary Embolism, Concern for Being provoked from recent surgery
History of Nonobstructive Coronary Artery Disease
Stress-induced takotsubo cardiomyopathy
Hypertension, Significant Orthostatic Hypotension during stay here
-Heparin Drip VTE protocol converted to Eliquis 05/30 last dose 05/31 morning placed on hold d/t worsening anemia hemorrhagic stroke as below
-Troponin consistently neg, no chest pain
-Pulm consult appreciated
-Echocardiogram results as above
-Continue home statin and Aspirin
-GI eval appreciated
02/18 transfer to IMU due to hypotension ongoing drop in hgb
Blood pressure low later in day symptomatic light headed dizziness though Awake Alert Conversant throughout
SBP 70s 80s despite 1PRBC 250 cc IVF bolus x2
RLE also appeared more swollen mottled appearance compared to earlier in day
patient transferred to ICU for levophed pressor support closer monitoring
RLE CTA notable for large hematomas but no active bleeding
initial transfusion 1PRBC for Hgb 8.0 noted poor response 7.6 subsequently improved following 2nd transfusion to Hgb 8.5
-Cardio eval appreciated ASA not necessary at this time from cardiac perspective, discontinued
-IR eval appreciated IVC filter placed 06/01
-Hgb since improved, weaned off pressors, stable downgraded Tele 06/02
-Eliquis dvt ppx dose 2.5 mg BID started for now, will cont to monitor, if tolerating could transition to 5 mg BID outpatient for treatment PE.
Likely Anemia of Chronic Disease contributing
Iron level otherwise normal
B12 deficiency, high dose supplementation started.
Osteoarthritis of the Knees
Recent Total Right Knee Replacement
-Lidocaine patch Pain medicines oxycodone 2.5 mg Q8HPRN as needed
-Orthopedic eval appreciated
History of QTc prolongation
avoid QT prolonging agents
Left Bundle Branch Block
-Chronic
-Newly diagnosed in April 2022
Chronic Kidney Disease Stage 3a
Gastroesophageal Reflux Disease
Hypertension
-Valsartan Amlodipine Coreg placed on hold d/t hypotension requiring pressor support as above. Since weaned off pressors. Blood pressures improving, resumed low dose Coreg with holding parameters as per cardio recc's, gradually titrating up Coreg
as tolerated.
Hyperlipidemia
-Continue Atorvastatin
hemorrhagic shock resolved
anemia due to acute blood loss and B12 deficiency
Iron deficiency likely due to acute blood loss
-IV iron x3 while inpt, to transition to oral on discharge
DVT PPx: SCD Eliquis 2.5 mg BID
GI ppx: Protonix
Code Status: Full Code
discussed with patient and her son Roque Orthopedic
I spent a total of 52 minutes with the patient or on the floor. More than 50% of this time involved counseling and coordination of care.
Anticipated Discharge: 24 - 48 hours
Subjective/Interval History
-
Date of Service: June 05, 2023
reports feeling well. Denies new acute issues. Appears comfortable at this time sitting up in chair. Son present during evaluation
Objective Data
-
Labs:
Laboratory Results
06/05/23
07:25
WBC Pending
Hgb Pending
Hct Pending
Plt Count Pending
Sodium Pending
Potassium Pending
Chloride Pending
Carbon Dioxide Pending
BUN Pending
Creatinine Pending
Glucose Pending
Calcium Pending
Vital Signs:
Vital Signs
Temp Pulse Resp BP Pulse Ox
98.7 F 85 16 114/70 98
06/05/23 03:20 06/05/23 03:20 06/05/23 03:20 06/05/23 03:20 06/05/23 03:20
I&O
06/04/23 06/05/23 06/06/23
06:59 06:59 06:59
Intake Total 1260 / 1260 1560 / 1560
Output Total 1700 / 1700 950 / 950
Balance -440 / -440 610 / 610
[2023-06-05 08:13] LABS: Hematocrit 23.2 % (37.0-47.0); Mean Corp Hgb Conc. 34.5 g/dL (33.0-37.0); Mean Corpuscular Hgb 31.7 pg (27.0-31.0); Mean Corpuscular Volume 92.1 fL (81.0-99.0); Mean Platelet Volume 8.8 fL (7.4-10.4); Platelet Count 204 10^3/uL (130-400); Red Blood Cell Count 2.52 10^6/uL (4.20-5.40); White Blood Cell Count 5.9 10^3/uL (4.8-10.8)
[2023-06-05 08:51] LABS: Blood Urea Nitrogen 27 mg/dl (7-17); Calcium 8.4 mg/dl (8.4-10.2); Carbon Dioxide 31 mmol/L (22-30); Chloride 97 mmol/L (98-107); Estimated Creatinine Clearance 56 ml/min; Glucose 98 mg/dl (70-99); Potassium 4.4 mmol/L (3.5-5.1); Sodium 132 mmol/L (135-145); eGFR > 60.00
[2023-06-05] MEDS: LIDOCAINE 4% PATCH 2 PATCH TOPICAL (09:47)
[2023-06-05] MEDS: SENOKOT-S 1 TABLET PO ×2 (09:48→20:19)
[2023-06-05] MEDS: COREG 6.25 MG PO ×2 (09:48→20:19)
[2023-06-05] MEDS: VITAMIN B-12 1000 MCG PO (09:48)
[2023-06-05] MEDS: TYLENOL 1000 MG PO ×3 (09:48→21:53)
[2023-06-05] MEDS: THERAGRAN 1 TABLET PO (09:48)
[2023-06-05] MEDS: ROXICODONE 2.5 MG PO ×2 (11:03→21:53)
[2023-06-05 11:19] LABS: Total Iron Binding Capacity 280 ug/dl (265-497)
[2023-06-05 11:20] LABS: Iron 20 ug/dl (37-170); Percent Saturation 7 % (20-50)
[2023-06-05 14:20] LABS: TSH Reflex To Free T4 5.63 uIU/ml (0.47-4.68)
[2023-06-05] MEDS: FERRLECIT 110 MG IV (14:49)
[2023-06-05 14:50] LABS: Free T4 1.14 ng/dl (0.78-2.19)
--- NOTE | 2023-06-05 15:46 | CM ---
Addendum entered by Cici Menendez 06/05/23 15:50:
TCB from Neil from [facility], he will ask for a different RN to be sent to see patient.
Patient and son updated.
Plan: home with [facility]
fax# [phone]
Original Note:
Patient seen bedside with son.
Plan is for home with [facility] (had in the past).
Son and patient voiced concern re VN and that medications were not reviewed and they only had one at home visit.
Patient did transition to opt therapy 5 days post initial visit by [facility].
Left VM for Neil/liaison for [facility] re families concern and await tcb.
[2023-06-05] MEDS: LIPITOR 20 MG PO (17:13)
[2023-06-05] MEDS: ELIQUIS 2.5 MG PO (20:19)
[2023-06-06 03:00] VITALS: BP 147/69
[2023-06-06 06:02] LABS: Hematocrit 23.8 % (37.0-47.0); Mean Corp Hgb Conc. 33.6 g/dL (33.0-37.0); Mean Corpuscular Hgb 30.5 pg (27.0-31.0); Mean Corpuscular Volume 90.8 fL (81.0-99.0); Mean Platelet Volume 8.7 fL (7.4-10.4); Platelet Count 219 10^3/uL (130-400); Red Blood Cell Count 2.62 10^6/uL (4.20-5.40); Red Cell Dist. Width 14.6 % (11.5-14.5); White Blood Cell Count 4.6 10^3/uL (4.8-10.8)
[2023-06-06 06:42] LABS: Blood Urea Nitrogen 28 mg/dl (7-17); Calcium 8.2 mg/dl (8.4-10.2); Carbon Dioxide 31 mmol/L (22-30); Chloride 102 mmol/L (98-107); Estimated Creatinine Clearance 56 ml/min; Glucose 92 mg/dl (70-99); Potassium 4.3 mmol/L (3.5-5.1); Sodium 133 mmol/L (135-145); eGFR > 60.00
--- NOTE | 2023-06-06 07:37 | W.PN.HOSP.TC ---
Today's Communication/Plan
-
cont Eliquis 2.5 mg BID dvt ppx dose
monitor H&H
cont current coreg
PT/OT
pain control
discharge planning
Assessment / Plan
Assessment / Plan
Physical Exam
General: No Apparent Distress
HEENT: Normocephalic and Moist mucous membranes
Respiratory: Clear
Cardiac: S1/S2 and Regular Rhythm
GI: Soft, Non Tender and Normal Bowel Sounds
Musculoskeletal: No Cyanosis, Edema, RLE dressing clean dry intact swelling much improved large bruise fading
Skin: Warm and Dry
Neuro: Awake, Alert and AO x 3
Psych: Calm and Intact Judgment/Insight

Echocardiogram report as per cardiology:
'CONCLUSIONS
�1.� Left ventricle: Normal size and function with an estimated ejection
�fraction of 60-65%
�2.� Right ventricle: Normal
�3.� Atria: Normal
�4.� Mitral valve: Mild mitral regurgitation
�5.� Aortic valve: No aortic stenosis or aortic insufficiency
�6.� Tricuspid valve: Mild tricuspid regurgitation with estimated pulmonary
�artery systolic pressures of 27 mmHg
�7.� When compared to the most recent echocardiogram from 03/03/2023 there is
�been no significant change'
Assessment/Plan
Right-Sided Pulmonary Embolism, Concern for Being provoked from recent surgery
History of Nonobstructive Coronary Artery Disease
Stress-induced takotsubo cardiomyopathy
Hypertension, Significant Orthostatic Hypotension during stay here
-Heparin Drip VTE protocol converted to Eliquis 05/30 last dose 05/31 morning placed on hold d/t worsening anemia hemorrhagic stroke as below
-Troponin consistently neg, no chest pain
-Pulm consult appreciated
-Echocardiogram results as above
-Continue home statin and Aspirin
-GI eval appreciated
05/31 transfer to IMU due to hypotension ongoing drop in hgb
Blood pressure low later in day symptomatic light headed dizziness though Awake Alert Conversant throughout
SBP 70s 80s despite 1PRBC 250 cc IVF bolus x2
RLE also appeared more swollen mottled appearance compared to earlier in day
patient transferred to ICU for levophed pressor support closer monitoring
RLE CTA notable for large hematomas but no active bleeding
initial transfusion 1PRBC for Hgb 8.0 noted poor response 7.6 subsequently improved following 2nd transfusion to Hgb 8.5
-Cardio eval appreciated ASA not necessary at this time from cardiac perspective, discontinued
-IR eval appreciated IVC filter placed 06/01
-Hgb since improved, weaned off pressors, stable downgraded Tele 06/02
-Eliquis dvt ppx dose 2.5 mg BID started for now, will cont to monitor, if tolerating could transition to 5 mg BID outpatient for treatment PE.
Likely Anemia of Chronic Disease contributing
Iron level otherwise normal
B12 deficiency, high dose supplementation started.
Osteoarthritis of the Knees
Recent Total Right Knee Replacement
-Lidocaine patch Pain medicines oxycodone 2.5 mg Q8HPRN as needed
-Orthopedic eval appreciated
History of QTc prolongation
avoid QT prolonging agents
Left Bundle Branch Block
-Chronic
-Newly diagnosed in April 2022
Chronic Kidney Disease Stage 3a
Gastroesophageal Reflux Disease
Hypertension
-Valsartan Amlodipine Coreg held d/t hypotension requiring pressor support as above. Since weaned off pressors. Blood pressures improving, resumed low dose Coreg with holding parameters as per cardio recc's, gradually titrating up Coreg as
tolerated.
Hyperlipidemia
-Continue Atorvastatin
hemorrhagic shock resolved
anemia due to acute blood loss and B12 deficiency
Iron deficiency likely due to acute blood loss
-IV iron x3 while inpt, to transition to oral on discharge
DVT PPx: SCD Eliquis 2.5 mg BID
GI ppx: Protonix
Code Status: Full Code
discussed with patient and her son Roque
I spent a total of 50 minutes with the patient or on the floor. More than 50% of this time involved counseling and coordination of care.
Anticipated Discharge: Within 24 hours
Subjective/Interval History
-
Date of Service: June 06, 2023
No acute distress sitting up comfortably in chair. Denies any new acute issues at this time.
Objective Data
-
Labs:
Laboratory Results
06/06/23
05:49
WBC 4.6 L
Hgb 8.0 L
Hct 23.8 L
Plt Count 219
Sodium 133 L
Potassium 4.3
Chloride 102
Carbon Dioxide 31 H
BUN 28 H
Creatinine 0.9
Glucose 92
Calcium 8.2 L
Vital Signs:
Vital Signs
Temp Pulse Resp BP Pulse Ox
98.1 F 82 16 147/69 96
06/06/23 03:00 06/06/23 03:00 06/06/23 03:00 06/06/23 03:00 06/06/23 03:00
I&O
06/05/23 06/06/23 06/07/23
06:59 06:59 06:59
Intake Total 1560 / 1560 1200 / 1200
Output Total 950 / 950 650 / 650
Balance 610 / 610 550 / 550
[2023-06-06 08:00] VITALS: BP 109/83
[2023-06-06] MEDS: LIDOCAINE 4% PATCH 2 PATCH TOPICAL (08:19)
[2023-06-06] MEDS: VITAMIN B-12 1000 MCG PO (08:19)
[2023-06-06] MEDS: COREG 6.25 MG PO ×2 (08:19→20:02)
[2023-06-06] MEDS: TYLENOL 1000 MG PO ×3 (08:19→21:01)
[2023-06-06] MEDS: ELIQUIS 2.5 MG PO ×2 (08:19→20:02)
[2023-06-06] MEDS: THERAGRAN 1 TABLET PO (08:19)
[2023-06-06] MEDS: SENOKOT-S 1 TABLET PO ×2 (08:20→20:02)
[2023-06-06 12:08] VITALS: BP 100/67; PULSE 87
[2023-06-06] MEDS: FERRLECIT 110 MG IV (13:05)
[2023-06-06 15:00] VITALS: BP 137/71
[2023-06-06] MEDS: LIPITOR 20 MG PO (17:07)
[2023-06-06 20:51] VITALS: BP 104/71; BP 110/65; BP 122/67; PULSE 107; PULSE 96; PULSE 98
[2023-06-06 23:00] VITALS: BP 103/60
[2023-06-07 03:00] VITALS: BP 126/71
[2023-06-07 07:06] VITALS: BP 129/81
[2023-06-07 07:06] LABS: Hematocrit 22.8 % (37.0-47.0); Hemoglobin 7.8 g/dL (12.0-16.0); Mean Corp Hgb Conc. 34.2 g/dL (33.0-37.0); Mean Corpuscular Hgb 31.2 pg (27.0-31.0); Mean Corpuscular Volume 91.2 fL (81.0-99.0); Mean Platelet Volume 8.9 fL (7.4-10.4); Platelet Count 242 10^3/uL (130-400); Red Cell Dist. Width 14.8 % (11.5-14.5); White Blood Cell Count 4.1 10^3/uL (4.8-10.8)
--- NOTE | 2023-06-07 07:20 | W.PN.HOSP.TC ---
Today's Communication/Plan
-
cont Eliquis 2.5 mg BID dvt ppx dose
monitor H&H transfuse goal Hgb>7.5, place Eliquis on hold if transfusion becomes necesary.
cont current coreg
PT/OT
pain control
Hematology eval in AM
Assessment / Plan
Assessment / Plan
Physical Exam
General: No Apparent Distress
HEENT: Normocephalic and Moist mucous membranes
Respiratory: Clear
Cardiac: S1/S2 and Regular Rhythm
GI: Soft, Non Tender and Normal Bowel Sounds
Musculoskeletal: No Cyanosis, Edema, RLE dressing clean dry intact swelling much improved large bruise fading
Skin: Warm and Dry
Neuro: Awake, Alert and AO x 3
Psych: Calm and Intact Judgment/Insight

Echocardiogram report as per cardiology:
'CONCLUSIONS
�1.� Left ventricle: Normal size and function with an estimated ejection
�fraction of 60-65%
�2.� Right ventricle: Normal
�3.� Atria: Normal
�4.� Mitral valve: Mild mitral regurgitation
�5.� Aortic valve: No aortic stenosis or aortic insufficiency
�6.� Tricuspid valve: Mild tricuspid regurgitation with estimated pulmonary
�artery systolic pressures of 27 mmHg
�7.� When compared to the most recent echocardiogram from 03/03/2023 there is
�been no significant change'
Assessment/Plan
Right-Sided Pulmonary Embolism, Concern for Being provoked from recent surgery
History of Nonobstructive Coronary Artery Disease
Stress-induced takotsubo cardiomyopathy
Hypertension, Significant Orthostatic Hypotension during stay here
-Heparin Drip VTE protocol converted to Eliquis 05/30 last dose 05/31 morning placed on hold d/t worsening anemia hemorrhagic stroke as below
-Troponin consistently neg, no chest pain
-Pulm consult appreciated
-Echocardiogram results as above
-Continue home statin and Aspirin
-GI eval appreciated
05/31 transferred to IMU due to hypotension ongoing drop in hgb
Blood pressure low later in day symptomatic light headed dizziness though Awake Alert Conversant throughout
SBP 70s 80s despite 1PRBC 250 cc IVF bolus x2
RLE also appeared more swollen mottled appearance compared to earlier in day
patient transferred to ICU for levophed pressor support closer monitoring
RLE CTA notable for large hematomas but no active bleeding
initial transfusion 1PRBC for Hgb 8.0 noted poor response 7.6 subsequently improved following 2nd transfusion to Hgb 8.5
-Cardio eval appreciated ASA not necessary at this time from cardiac perspective, discontinued
-IR eval appreciated IVC filter placed 06/01
-Hgb since improved, weaned off pressors, stable downgraded Tele 06/02
-Eliquis dvt ppx dose 2.5 mg BID started for now, will cont to monitor, if tolerating could transition to 5 mg BID outpatient for treatment PE.
Osteoarthritis of the Knees
Recent Total Right Knee Replacement
-Lidocaine patch Pain medicines oxycodone 2.5 mg Q8HPRN as needed
-Orthopedic eval appreciated
-Follow up Orthopedic Thursday 06/08 for wound check dressing removal
History of QTc prolongation
avoid QT prolonging agents
Left Bundle Branch Block
-Chronic
-Newly diagnosed in April 2022
Chronic Kidney Disease Stage 3a
Gastroesophageal Reflux Disease
Hypertension
-Valsartan Amlodipine Coreg held d/t hypotension requiring pressor support as above. Since weaned off pressors. Blood pressures improving, resumed low dose Coreg with holding parameters as per cardio recc's, gradually titrating up Coreg as
tolerated.
Hyperlipidemia
-Continue Atorvastatin
Anemia multifactorial due to acute blood loss, Iron deficiency due to acute blood loss, anemia of Chronic Disease, B12 deficiency
hemorrhagic shock resolved
-B12 high dose supplementation started, continue
-anemia due to acute blood loss and B12 deficiency
-IV iron x3 completed, transition to oral starting tomorrow
-discussed with patient and patient's son Roque, earliest iron studies may be repeated following IV iron infusion is 4 weeks, studies done earlier are inaccurate and unreliable.
-Monitor H&H, transfusion goal Hgb>7.5 with concern acute blood loss
-Hematology Eval requested
Elevated TSH
-mild elevation TSH
-T4 wnl
-outpatient repeat recommended in 1 month
PT/OT appreciated outpt PT
DVT PPx: SCD Eliquis 2.5 mg BID
GI ppx: Protonix
Code Status: Full Code
discussed with patient and her son Roque
I spent a total of 50 minutes with the patient or on the floor. More than 50% of this time involved counseling and coordination of care.
Anticipated Discharge: 24 - 48 hours
Subjective/Interval History
-
Date of Service: June 07, 2023
Seen and examined at bedside in no acute distress resting comfortably in chair. Overall patient reports feeling well. Son Roque present during evaluation.
Objective Data
-
Labs:
Laboratory Results
06/07/23
06:06
WBC 4.1 L
Hgb 7.8 L
Hct 22.8 L
Plt Count 242
Sodium Pending
Potassium Pending
Chloride Pending
Carbon Dioxide Pending
BUN Pending
Creatinine Pending
Glucose Pending
Calcium Pending
Vital Signs:
Vital Signs
Temp Pulse Resp BP Pulse Ox
97.9 F 80 18 126/71 99
06/07/23 03:00 06/07/23 03:00 06/07/23 03:00 06/07/23 03:00 06/07/23 03:00
I&O
06/06/23 06/07/23 06/08/23
06:59 06:59 06:59
Intake Total 1200 / 1200 1740 / 1740
Output Total 650 / 650 950 / 950
Balance 550 / 550 790 / 790
[2023-06-07 07:34] LABS: Blood Urea Nitrogen 29 mg/dl (7-17); Calcium 8.5 mg/dl (8.4-10.2); Carbon Dioxide 31 mmol/L (22-30); Chloride 99 mmol/L (98-107); Estimated Creatinine Clearance 56 ml/min; Glucose 94 mg/dl (70-99); Potassium 4.5 mmol/L (3.5-5.1); Sodium 135 mmol/L (135-145); eGFR > 60.00
[2023-06-07] MEDS: TYLENOL 1000 MG PO ×3 (09:02→20:53)
[2023-06-07] MEDS: VITAMIN B-12 1000 MCG PO (09:03)
[2023-06-07] MEDS: SENOKOT-S 1 TABLET PO ×2 (09:03→20:55)
[2023-06-07] MEDS: COREG 6.25 MG PO ×2 (09:04→20:54)
[2023-06-07] MEDS: ELIQUIS 2.5 MG PO ×2 (09:04→20:54)
[2023-06-07] MEDS: THERAGRAN 1 TABLET PO (09:04)
[2023-06-07] MEDS: LIDOCAINE 4% PATCH 2 PATCH TOPICAL (09:05)
[2023-06-07 12:53] LABS: Hematocrit 24.6 % (37.0-47.0); Hemoglobin 8.2 g/dL (12.0-16.0)
[2023-06-07] MEDS: FERRLECIT 110 MG IV (13:16)
[2023-06-07 15:15] VITALS: BP 103/79
[2023-06-07] MEDS: LIPITOR 20 MG PO (16:41)
[2023-06-07 23:25] VITALS: BP 109/63
[2023-06-08] MEDS: TYLENOL 1000 MG PO ×3 (06:08→21:53)
[2023-06-08 07:00] VITALS: BP 152/93
--- NOTE | 2023-06-08 08:51 | W.PN.HOSP.TC ---
Today's Communication/Plan
-
Anemia treatment, hematology recommendations appreciated
Recheck labs in the morning
Possible discharge tomorrow
Assessment / Plan
Assessment / Plan
Physical Exam
General: No Apparent Distress
HEENT: Normocephalic and Moist mucous membranes
Respiratory: Clear
Cardiac: S1/S2 and Regular Rhythm
GI: Soft, Non Tender and Normal Bowel Sounds
Musculoskeletal: No Cyanosis, Edema, RLE dressing clean dry intact swelling much improved large bruise fading
Skin: Warm and Dry
Neuro: Awake, Alert and AO x 3
Psych: Calm and Intact Judgment/Insight

Echocardiogram report as per cardiology:
'CONCLUSIONS
�1.� Left ventricle: Normal size and function with an estimated ejection
�fraction of 60-65%
�2.� Right ventricle: Normal
�3.� Atria: Normal
�4.� Mitral valve: Mild mitral regurgitation
�5.� Aortic valve: No aortic stenosis or aortic insufficiency
�6.� Tricuspid valve: Mild tricuspid regurgitation with estimated pulmonary
�artery systolic pressures of 27 mmHg
�7.� When compared to the most recent echocardiogram from 03/03/2023 there is
�been no significant change'
Assessment/Plan
Right-Sided Pulmonary Embolism, Concern for Being provoked from recent surgery
History of Nonobstructive Coronary Artery Disease
Stress-induced takotsubo cardiomyopathy
Hypertension, Significant Orthostatic Hypotension during stay here
Hemorrhagic shock while on anticoagulation for PE
Large hematomas at the right lower extremity
-Heparin Drip VTE protocol converted to Eliquis 05/30 last dose 05/31 morning placed on hold d/t worsening anemia hemorrhagic stroke as below
-Troponin consistently neg, no chest pain
-Pulm consult appreciated
-Echocardiogram results as above
-Continue home statin
-GI eval appreciated
05/31 transferred to IMU due to hypotension ongoing drop in hgb
Blood pressure low later in day symptomatic light headed dizziness though Awake Alert Conversant throughout
SBP 70s 80s despite 1PRBC 250 cc IVF bolus x2
RLE also appeared more swollen mottled appearance compared to earlier in day
patient transferred to ICU for levophed pressor support closer monitoring
RLE CTA notable for large hematomas but no active bleeding
initial transfusion 1PRBC for Hgb 8.0 noted poor response 7.6 subsequently improved following 2nd transfusion to Hgb 8.5
-Cardio eval appreciated ASA not necessary at this time from cardiac perspective, discontinued
-IR eval appreciated IVC filter placed 06/01/23
-Hgb since improved, weaned off pressors, stable downgraded Tele 06/02
-Eliquis dvt ppx dose 2.5 mg BID continued for now, will cont to monitor for signs or symptoms of bleeding, if tolerating it, could transition to 5 mg BID outpatient for treatment PE.
Osteoarthritis of the Knees
Recent Total Right Knee Replacement
-Lidocaine patch Pain medicines oxycodone 2.5 mg Q8HPRN as needed
-Orthopedic eval appreciated
-Orthopedics will see patient on Thursday 06/08 or Friday 06/09 for wound check dressing removal
History of QTc prolongation
avoid QT prolonging agents
Left Bundle Branch Block
-Chronic
-Newly diagnosed in April 2022
Chronic Kidney Disease Stage 3a
Gastroesophageal Reflux Disease
Hypertension
-Valsartan Amlodipine Coreg held d/t hypotension requiring pressor support as above. Since weaned off pressors. Blood pressures improving, resumed low dose Coreg with holding parameters as per cardio recc's, gradually titrating up Coreg as
tolerated.
Hyperlipidemia
-Continue Atorvastatin
Anemia multifactorial due to acute blood loss, Iron deficiency due to acute blood loss, anemia of Chronic Disease, B12 deficiency
hemorrhagic shock resolved
-B12 high dose supplementation started, continue
-anemia due to acute blood loss and B12 deficiency
-IV iron x3 completed, transition to oral starting 06/08/23
-discussed with patient and patient's son Roque, consulted hematology for further evaluation and treatment of anemia
-Monitor H&H, transfusion goal Hgb>7.5 with concern acute blood loss
Elevated TSH
-mild elevation TSH
-T4 wnl
-outpatient repeat recommended in 1 month
Thyroid nodule
PT/OT appreciated outpt PT
DVT PPx: SCD Eliquis 2.5 mg BID
GI ppx: Protonix
Code Status: Full Code
discussed with patient and her son Roque
Anticipated Discharge: 24 - 48 hours
Subjective/Interval History
-
Date of Service: June 08, 2023
Patient was seen and examined. Overall, she is improved, is able to go to the bathroom by herself. Pain is controlled, but she still cannot fully bend her right knee.
Objective Data
-
Labs:
Laboratory Results
06/08/23
07:06
Hgb 8.0 L
Hct 24.0 L
Vital Signs:
Vital Signs
Temp Pulse Resp BP Pulse Ox
98.0 F 91 18 152/93 97
06/08/23 07:00 06/08/23 07:00 06/08/23 07:00 06/08/23 07:00 06/08/23 07:00
I&O
06/07/23 06/08/23 06/09/23
06:59 06:59 06:59
Intake Total 1740 / 1740 1780 / 1780
Output Total 950 / 950 1200 / 1200
Balance 790 / 790 580 / 580
--- NOTE | 2023-06-08 09:07 | CON.ONC ---
Documented by User: Lydia Correa MD, Resident 06/08/23 11:59
Impression
Impression
Right-Sided Pulmonary Embolism, Concern for Being provoked from recent surgery
History of Nonobstructive Coronary Artery Disease
Stress-induced takotsubo cardiomyopathy
Hypertension
Normocytic Anemia
Plan
Plan
Normocytic anemia, HB 8,at goal
-No history of epistaxis, heavy menses in the past
- Denies rectal bleeding
- Ordering ferritin, retic count, celiac serology
-B12 and iron level low
Follow up outpatient
Patient History
History of Present Illness
Hematology was asked to give recommendation regarding blood transfusion if needed, goal HB >7.5, currently patient is on Eliquis.
78 y/o female with past medical history of Nonobstructive Coronary Artery Disease, Stress-induced takotsubo cardiomyopathy, Hypertension, Osteoarthritis of the Knees, Recent Total Right Knee Replacement (8 days ago, with Dr. Batres), History of QTc
prolongation, Left Bundle Branch Block, Chronic Kidney Disease Stage 3a, Gastroesophageal Reflux Disease, Hypertension and Hyperlipidemia presented with chest pain. Patient says the pain started in her chest and wrapped around to her back, and it
did hurt to take a deep breath at the same time and she did have some discomfort in her jaw.� She still has that mildly.� She no longer feels short of breath and has no pleuritic pain. Patient says she was not aware that she was supposed to resume
her Aspirin after her surgery and so she has not been taking that.�
Past-Medical/Surgical History
Past medical -
Nonobstructive Coronary Artery Disease, Stress-induced takotsubo cardiomyopathy, Hypertension, Osteoarthritis of the Knees, Recent Total Right Knee Replacement (8 days ago, with Dr. Batres), History of QTc prolongation, Left Bundle Branch Block,
Chronic Kidney Disease Stage 3a, Gastroesophageal Reflux Disease, Hypertension and Hyperlipidemia
Past surgical - Total knee replacement
Patient Medication
Medication Instructions Recorded Confirmed Last Taken Type
atorvastatin 20 mg tablet 20 mg PO QPM #90 tabs 05/01/22 05/28/23 05/27/23 Rx
Ageles Brain 2 cap PO DAILY Supplement 05/28/23 05/28/23 Unknown History
Brain Strong Supplement 2 cap PO DAILY Supplement 05/28/23 05/28/23 15 Days Ago History
~05/13/23
acetaminophen 325 mg tablet 325 mg PO TID Pain 05/28/23 05/28/23 05/28/23 History
(Tylenol) 975 mg
amlodipine 2.5 mg tablet 2.5 mg PO QPM Blood Pressure 05/28/23 05/28/23 05/27/23 History
aspirin 81 mg tablet,delayed 81 mg PO DAILY Blood Clot 05/28/23 05/28/23 15 Days Ago History
release Prevention/Tx ~05/13/23
calcium carb 333 mg-vit D3 133 1 tab PO DAILY Supplement 05/28/23 05/28/23 05/27/23 History
unit-mag ox 133 mg-zinc oxide 5 mg
tab
carvedilol 25 mg tablet (Coreg) 25 mg PO BID Heart Failure 05/28/23 05/28/23 05/28/23 History
celecoxib 100 mg capsule 100 mg PO BID Anti-Inflammatory 05/28/23 05/28/23 05/28/23 History
lysine 500 mg tablet 1,500 mg PO DAILY Supplement 05/28/23 05/28/23 15 Days Ago History
~05/13/23
quercetin 500 mg capsule 500 mg PO DAILY Supplement 05/28/23 05/28/23 15 Days Ago History
~05/13/23
thymus gland calf 200 mg 200 mg PO DAILY Supplement 05/28/23 05/28/23 15 Days Ago History
tablet,delayed release ~05/13/23
valsartan 160 mg tablet 160 mg PO DAILY Blood Pressure 05/28/23 05/28/23 05/28/23 History
apixaban 5 mg tablet (Eliquis) 5 mg PO BID #60 tabs 05/29/23 Unknown Rx
apixaban 5 mg tablet (Eliquis) 10 mg PO BID 7 days #28 tabs 05/29/23 Unknown Rx
Active Medications
Generic Name Dose Route Start Last Admin
Trade Name Freq PRN Reason Stop Dose Admin
Acetaminophen 1,000 mg 05/30/23 16:00 06/08/23 06:08
Acetaminophen 500 Mg Tablet PO 06/27/23 15:59 1,000 mg
TID MIROSLAVA Administration
Al Hydrox/Mg Hydrox/Simethicone 30 ml 05/31/23 11:46 05/31/23 12:12
Mag/Al/Simethicone Suspension 30 Ml Cup PO 06/28/23 11:45 30 ml
QIDPRN PRN Administration
heartburn
Amlodipine Besylate 2.5 mg 05/28/23 18:00 05/30/23 17:42
Amlodipine 2.5 Mg Tablet PO 06/25/23 17:59 2.5 mg
QPM MIROSLAVA Administration
Apixaban 2.5 mg 06/05/23 20:00 06/07/23 20:54
Apixaban (Eliquis) 2.5 Mg Tablet PO 07/03/23 19:59 2.5 mg
BID MIROSLAVA Administration
Atorvastatin Calcium 20 mg 05/28/23 18:00 06/07/23 16:41
Atorvastatin (Lipitor) 20 Mg Tablet PO 06/25/23 17:59 20 mg
QPM MIROSLAVA Administration
Carvedilol 6.25 mg 06/05/23 08:00 06/07/23 20:54
Carvedilol 6.25 Mg Tablet PO 07/03/23 07:59 6.25 mg
BID MIROSLAVA Administration
Cyanocobalamin 1,000 mcg 06/01/23 08:00 06/07/23 09:03
Cyanocobalamin 1,000 Mcg Tablet PO 06/29/23 07:59 1,000 mcg
DAILY MIROSLAVA Administration
Ferrous Sulfate 325 mg 06/08/23 08:00
Ferrous Sulfate 325 Mg Tablet PO 07/06/23 07:59
DAILY MIROSLAVA
Lidocaine 2 patch 05/30/23 20:00 06/07/23 09:05
Lidocaine 4% Topical Patch TOPICAL 06/27/23 19:59 2 patch
DAILY MIROSLAVA Administration
Multivitamins Therapeutic 1 tablet 05/30/23 08:00 06/07/23 09:04
Multivitamin Tablet PO 06/27/23 07:59 1 tablet
DAILY MIROSLAVA Administration
Oxycodone HCl 2.5 mg 05/30/23 12:09 06/05/23 21:53
Oxycodone 5 Mg Regular Release Tablet PO 06/13/23 12:08 2.5 mg
Q8HPRN PRN Administration
moderate severe pain
Patch Removal 0 patch 05/31/23 20:00 06/07/23 22:02
Remove Lidocaine Patch REMOVE 06/28/23 19:59 1 patch
DAILY@2000 MIROSLAVA Administration
Polyethylene Glycol 17 grams 05/30/23 12:09 06/02/23 07:55
Polyethylene Glycol Powder 17 Grams Packet PO 06/27/23 12:08 17 grams
DAILYPRN PRN Administration
constipation
Senna/Docusate Sodium 1 tablet 05/30/23 20:00 06/07/23 20:55
Docusate W/Senna (Brenda-Colace) Tablet PO 06/27/23 19:59 1 tablet
BID MIROSLAVA Administration
Sodium Chloride 0 flush 05/30/23 15:00
Sodium Chloride 0.9% (Flush) Syringe IV 06/27/23 14:59
PER PROTOCOL MIROSLAVA
Trazodone HCl 25 mg 05/30/23 14:57 05/30/23 20:38
Trazodone 50 Mg Tablet PO 06/27/23 14:56 25 mg
HSPRN PRN Administration
insomnia/sleep
Valsartan 160 mg 05/29/23 08:00 06/01/23 08:00
Valsartan 80 Mg Tablet PO 06/26/23 07:59 160 mg
DAILY MIROSLAVA Administration
Physical Exam
Labs
Lab Results
WBC 4.1 10^3/uL (4.8-10.8) L 06/07/23 06:06
RBC 2.50 10^6/uL (4.20-5.40) L 06/07/23 06:06
Hgb 8.0 g/dL (12.0-16.0) L 06/08/23 07:06
Hct 24.0 % (37.0-47.0) L 06/08/23 07:06
MCV 91.2 fL (81.0-99.0) 06/07/23 06:06
MCH 31.2 pg (27.0-31.0) H 06/07/23 06:06
MCHC 34.2 g/dL (33.0-37.0) 06/07/23 06:06
RDW 14.8 % (11.5-14.5) H 06/07/23 06:06
Plt Count 242 10^3/uL (130-400) 06/07/23 06:06
MPV 8.9 fL (7.4-10.4) 06/07/23 06:06
Abs Immat Gran (auto) 0.1 10^3/uL (0-0.05) H 05/28/23 09:47
Absolute Neuts (auto) 3.2 10^3/uL (1.4-6.5) 05/28/23 09:47
Absolute Lymphs (auto) 2.0 10^3/uL (1.2-3.4) 05/28/23 09:47
Absolute Monos (auto) 0.7 10^3/uL (0.1-0.6) H 05/28/23 09:47
Absolute Eos (auto) 0.2 10^3/uL (0-0.7) 05/28/23 09:47
Absolute Basos (auto) 0.0 10^3/uL (0-0.2) 05/28/23 09:47
Immature Gran % 0.8 % (0-0.5) H 05/28/23 09:47
Neutrophils % 51.7 % (42.2-75.2) 05/28/23 09:47
Lymphocytes % 31.7 % (20.5-51.1) 05/28/23 09:47
Monocytes % 11.7 % (1.7-9.3) H 05/28/23 09:47
Eosinophils % 3.9 % (0-6) 05/28/23 09:47
Basophils % 0.2 % (0-2) 05/28/23 09:47
Creatinine 0.9 mg/dL (0.6-1.0) 06/07/23 06:06
Vital Signs
Vital Signs
Temp Pulse Resp BP Pulse Ox
98.0 F 91 18 152/93 97
06/08/23 07:00 06/08/23 07:00 06/08/23 07:00 06/08/23 07:00 06/08/23 07:00

Documented by User: Sushila Worley MD 06/08/23 21:37
Plan
Plan
Normocytic anemia, HB 8,at goal
-No history of epistaxis, heavy menses in the past
- Denies rectal bleeding
- Ordering ferritin, retic count, celiac serology
- B12 237
Follow up outpatient
Attending Addendum
78 yo woman with history of Takotsubo cardiomyopathy occurring in the setting of uncontrolled hypertension 04/2022, chest CT at that time negative for aortic dissection. Was started on baby aspirin at that time.
She underwent R TKR 05/21/23. She held baby aspirin for one week prior but did not realize she was supposed to resume aspirin post-op for DVT prevention.
She developed acute chest pain 05/28/23 AM, found to have DVT. She was started on heparin gtt, was supratherapeutic at some point, then was started on Eliquis with loading dose. As of 05/31, BP dropped and she became hypotensive. Found to have
extensive R leg hematoma. Anticoagulation was D/C'd and she underwent IVC filter placement. She has required 3 units PRBC's. Iron sat low, no ferritin sent. B12 borderline low.
Pt also with history of H.pylori gastritis in 2018.
Denies personal or family history of clotting or bleeding disorder.
Plan:
- Monitor hemoglobin
- B12, MMA, intrinsic factor AB, celiac panel now - question whether there may have been some pre-existing iron deficiency
- outpt f/u with Hematology
- okay for d/c home 06/09 if Hgb stable.
[2023-06-08] MEDS: LIDOCAINE 4% PATCH 2 PATCH TOPICAL (09:49)
[2023-06-08] MEDS: SENOKOT-S 1 TABLET PO ×2 (09:51→21:52)
[2023-06-08] MEDS: FEOSOL 325 MG PO (09:51)
[2023-06-08] MEDS: VITAMIN B-12 1000 MCG PO (09:51)
[2023-06-08] MEDS: THERAGRAN 1 TABLET PO (09:51)
[2023-06-08] MEDS: ELIQUIS 2.5 MG PO ×2 (09:51→21:55)
[2023-06-08] MEDS: COREG 6.25 MG PO ×2 (09:51→21:52)
[2023-06-08 12:56] LABS: Reticulocyte Count 3.4 % (0.4-2.8)
[2023-06-08 14:05] LABS: IgA 217 mg/dl (70-400)
--- NOTE | 2023-06-08 14:46 | W.PN.ORTHO ---
Today's Communication / Plan
-
PT/OT
WBAT
Eliquis per med
Remove Aquacel once home but leave Prineo in place
Ice and elevate for pain and swelling
Flollow up Dr Batres 2 weeks
Assessment
.
Distal Motor Intact: Yes
Dressing:
Dressing clean, dry and intact. Mepilex dressing removed. Prineo dressing with glue in place with scant dry blood. No signs of infection. New Aquacel dressing applied.
Plan
.
Surgery / Date: R TKA 05/21/23 dr Batres
DVT Prophylaxis: Other (Eliquis)
Activity:
Out of bed.
PT/OT
Discharge Plan: Home w/ VN
Subjective
.
.:
Patient resting comfortably.
Vital Signs and Labs
.
Vital Signs and Labs:
Lab Results
06/08/23 07:06
06/07/23 06:06
Temp Pulse Resp BP Pulse Ox
98.0 F 91 18 152/93 97
06/08/23 07:00 06/08/23 07:00 06/08/23 07:00 06/08/23 07:00 06/08/23 07:00
PT 15.1 Sec (11.4-14.6) H 06/01/23 03:17
INR 1.21 06/01/23 03:17
Physical Exam
-
Right leg extensive edema and ecchymosis. Calf soft and nontender.
[2023-06-08 15:00] VITALS: BP 147/78
--- NOTE | 2023-06-08 16:17 | CM ---
Patient seen bedside with family in room.
Patient stated she is for probable d/c home with [facility] tomorrow and outpatient physical therapy.
Son will transport.
[facility]
fax# [phone]
[2023-06-08] MEDS: LIPITOR 20 MG PO (16:57)
[2023-06-08 23:00] VITALS: BP 131/70
[2023-06-09 07:00] VITALS: BP 139/63
[2023-06-09 08:23] LABS: Hematocrit 24.9 % (37.0-47.0); Hemoglobin 8.3 g/dL (12.0-16.0); Mean Corp Hgb Conc. 33.3 g/dL (33.0-37.0); Mean Corpuscular Hgb 31.7 pg (27.0-31.0); Mean Platelet Volume 8.9 fL (7.4-10.4); Platelet Count 271 10^3/uL (130-400); Red Blood Cell Count 2.62 10^6/uL (4.20-5.40)
[2023-06-09] MEDS: ELIQUIS 2.5 MG PO (08:24)
[2023-06-09] MEDS: VITAMIN B-12 1000 MCG PO (08:24)
[2023-06-09] MEDS: TYLENOL 1000 MG PO ×2 (08:24→15:35)
[2023-06-09] MEDS: THERAGRAN 1 TABLET PO (08:24)
[2023-06-09] MEDS: LIDOCAINE 4% PATCH 2 PATCH TOPICAL (08:24)
[2023-06-09] MEDS: COREG 6.25 MG PO (08:24)
[2023-06-09] MEDS: SENOKOT-S 1 TABLET PO (08:24)
[2023-06-09] MEDS: FEOSOL 325 MG PO (08:25)
--- NOTE | 2023-06-09 08:26 | W.PN.HOSP.TC ---
Today's Communication/Plan
-
Discharge today
Assessment / Plan
Assessment / Plan
Physical Exam
General: No Apparent Distress
HEENT: Normocephalic and Moist mucous membranes
Respiratory: Clear
Cardiac: S1/S2 and Regular Rhythm
GI: Soft, Non Tender and Normal Bowel Sounds
Musculoskeletal: No Cyanosis. Edema, RLE dressing clean dry intact swelling much improved large bruise fading gradually
Skin: Warm and Dry
Neuro: Awake, Alert and AO x 3
Psych: Calm and Intact Judgment/Insight

Echocardiogram report as per cardiology:
'CONCLUSIONS
�1.� Left ventricle: Normal size and function with an estimated ejection
�fraction of 60-65%
�2.� Right ventricle: Normal
�3.� Atria: Normal
�4.� Mitral valve: Mild mitral regurgitation
�5.� Aortic valve: No aortic stenosis or aortic insufficiency
�6.� Tricuspid valve: Mild tricuspid regurgitation with estimated pulmonary
�artery systolic pressures of 27 mmHg
�7.� When compared to the most recent echocardiogram from 03/03/2023 there is
�been no significant change'

Assessment/Plan
Right-Sided Pulmonary Embolism, Concern for Being provoked from recent surgery
History of Nonobstructive Coronary Artery Disease
Stress-induced takotsubo cardiomyopathy
Hypertension, Significant Orthostatic Hypotension during stay here
Hemorrhagic shock while on anticoagulation for Pulmonary Embolism
Large hematomas at the right lower extremity
Right Lower Extremity Subcutaneous Edema
-No DVT on lower extremity ultrasound
-Heparin Drip VTE protocol converted to Eliquis 05/30/23 last dose 05/31/23 morning, then was placed on hold due to worsening anemia hemorrhagic shock (see below)
-Troponin consistently negative this admission, no chest pain
-Pulmonary consult appreciated
-Echocardiogram results as above
-Continue home statin
-GI eval appreciated
On 05/31/23 transferred to IMU due to hypotension and ongoing drop in hgb
Blood pressure low later in day symptomatic light headed dizziness though Awake Alert Conversant throughout
SBP 70s 80s despite 1PRBC 250 cc IVF bolus x2
RLE also appeared more swollen mottled appearance compared to earlier in day
patient transferred to ICU for levophed pressor support and closer monitoring
RLE CTA notable for large hematomas but no active bleeding
initial transfusion 1PRBC for Hgb 8.0 noted poor response 7.6 subsequently improved following 2nd transfusion to Hgb 8.5 (patient received a total of 3 units of red blood cells as per the records)
-Cardio eval appreciated Aspirin not necessary at this time from cardiac perspective, therefore Aspirin was discontinued
-IR eval appreciated IVC filter placed 06/01/23
-Hgb since improved, weaned off pressors, stable downgraded to Tele 06/02/23
-Eliquis dose 2.5 mg BID continued for now, will cont to monitor for signs or symptoms of bleeding, if tolerating it, could transition to 5 mg BID outpatient for treatment PE (close follow-up with Dr. Leandra Huff Hematology office)
Minimal biapical pleural thickening
Small Pericardial Effusion on CT Imaging but not on Echocardiogram
Mild coronary artery calcifications on CT Imaging
Mild mitral regurgitation
Mild tricuspid regurgitation
-Close follow-up with pulmonary outpatient
-Close follow-up with cardiology outpatient
Osteoarthritis of the Knees
Recent Total Right Knee Replacement in May 2023
-Lidocaine patch Pain medicines oxycodone 2.5 mg Q8HPRN as needed
-Orthopedic eval appreciated
-Physical and Occupational Therapies
-Weight Bearing As Tolerated
-Remove Aquacel once home but leave Prineo in place
-Ice and elevate for pain and swelling
-Follow-up with Dr. Batres in 2 weeks
QTc prolongation
-Avoid QT prolonging agents
-Recheck QTc
Left Bundle Branch Block
-Chronic
-Newly diagnosed in April 2022
History of Chronic Kidney Disease Stage 3a
Gastroesophageal Reflux Disease
Hypertension
-Valsartan Amlodipine Coreg previously were all held due to hypotension requiring pressor support as above. Since weaned off pressors. Blood pressures have improved, and low-dose Coreg was resumed with holding parameters as per cardio
recommendations, gradually titrating up Coreg as tolerated.
-Check blood pressures at home and restart Valsartan and Amlodipine outpatient (Discuss with Dr. Patel - bundle packer - and your primary care provider)
Hyperlipidemia
-Continue Atorvastatin
Anemia multifactorial due to acute blood loss, Iron deficiency due to acute blood loss, anemia of Chronic Disease, B12 deficiency
Hemorrhagic shock - resolved
-B12 high dose supplementation started, continue
-anemia due to acute blood loss and B12 deficiency
-IV iron x3 completed, transition to oral starting 06/08/23
-discussed with patient and patient's son Roque, consulted hematology for further evaluation and treatment of anemia, hematology recommendations appreciated: celiac studies, ferritin, etc.
-Monitor H&H, transfusion goal Hgb>7.5 with concern acute blood loss
-Continue Oral Iron at 3x/week (discussed this plan with hematology on 06/09/23)
-Dr. Leandra Huff will arrange outpatient office visit to consider full dose Eliquis and monitoring/management of anemia as indicated.
Elevated TSH
-mild elevation TSH
-T4 wnl
-outpatient repeat recommended in 1 month
1.7 cm hypodensity in the left lobe of the thyroid on CT Chest Imaging
-Will need to follow-up with PCP/endocrinology outpatient
Tiny Hypodensities on Liver
-Follow-up outpatient with gastroenterology
PT/OT appreciated outpt PT
DVT PPx: SCD Eliquis 2.5 mg BID
GI ppx: Protonix
Code Status: Full Code
discussed with patient and her son Roque as well as patient's daughter (who was on video on their cell phone)
More than 30 minutes spent in discharge including
Final examination of the patient
Summarizing hospital stay
Instructions for continuing care to all relevant caregivers
Preparation of discharge records, prescriptions, and referral forms
Total time spent (in minutes): 42
Anticipated Discharge: Today
Subjective/Interval History
-
Date of Service: June 09, 2023
Patient was seen and examined. She was doing relatively well today, she reported no new significant symptoms or complaints. Discussed case with patient's daughter and son, as well as patient, inside patient's room.
Objective Data
-
Labs:
Laboratory Results
06/09/23
06:59
WBC Pending
Hgb Pending
Hct Pending
Plt Count Pending
Sodium Pending
Potassium Pending
Chloride Pending
Carbon Dioxide Pending
BUN Pending
Creatinine Pending
Glucose Pending
Calcium Pending
Total Bilirubin Pending
AST Pending
ALT Pending
Alkaline Phosphatase Pending
Vital Signs:
Vital Signs
Temp Pulse Resp BP Pulse Ox
98.0 F 84 18 139/63 97
06/09/23 07:00 06/09/23 07:00 06/09/23 07:00 06/09/23 07:00 06/09/23 07:00
I&O
06/08/23 06/09/23 06/10/23
06:59 06:59 06:59
Intake Total 1780 / 1780 480 / 480
Output Total 1200 / 1200 1100 / 1100
Balance 580 / 580 -620 / -620
[2023-06-09 09:03] LABS: ALT (SGPT) 34 U/L (0-35); AST (SGOT) 36 U/L (14-36); Albumin 2.9 g/dl (3.5-5.0); Alkaline Phosphatase 88 U/L (38-126); Blood Urea Nitrogen 23 mg/dl (7-17); Calcium 8.2 mg/dl (8.4-10.2); Carbon Dioxide 29 mmol/L (22-30); Chloride 104 mmol/L (98-107); Estimated Creatinine Clearance 63 ml/min; Glucose 88 mg/dl (70-99); Magnesium 2.2 mg/dl (1.6-2.3); Phosphorus 3.7 mg/dl (2.5-4.5); Sodium 133 mmol/L (135-145); Total Bilirubin 1.2 mg/dl (0.2-1.3); Total Protein 5.3 g/dl (6.3-8.2); eGFR > 60.00
[2023-06-09 11:00] VITALS: BP 130/87; BP 136/86; BP 138/80; PULSE 100; PULSE 91; PULSE 93
--- NOTE | 2023-06-09 12:59 | W.PN.UPDATE ---
Update Note
Progress Note Update
d/w hospitalist, plans for d/c home today
Would continue low dose Eliquis 2.5mg bid
Continue oral iron - 3x/week
Will arrange outpatient office visit to consider full dose eliquis and monitoring/mgmt of anemia as indicated.
Our office will contact patient to schedule
--- NOTE | 2023-06-09 15:10 | CM ---
Addendum entered by Cici Menendez 06/09/23 15:17:
Eduardo huerta provided.
Original Note:
Patient for d/c home today.
patient known to [facility].
TC to Neil at [facility] he is aware of d/c and will try for tomorrow visit.
IMM completed.
Plan home with [facility]
fax# [phone]
--- NOTE | 2023-06-09 15:34 | W.DS.TRANS ---
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
-
Discharge Instructions:
Discharge Diagnosis/Procedures QTc prolongation
Hyponatremia
Right-Sided Pulmonary Embolism, Concern for
Being provoked from recent surgery
History of Nonobstructive Coronary Artery
Disease
Stress-induced takotsubo cardiomyopathy
Hypertension, Significant Orthostatic
Hypotension during stay here
Hemorrhagic shock while on anticoagulation for
Pulmonary Embolism
Large hematomas at the right lower extremity
Right Lower Extremity Subcutaneous Edema
Minimal biapical pleural thickening
Small Pericardial Effusion on CT Imaging but not
on Echocardiogram
Mild coronary artery calcifications on CT
Imaging
Mild mitral regurgitation
Mild tricuspid regurgitation
Osteoarthritis of the Knees
Recent Total Right Knee Replacement in May
2023
Left Bundle Branch Block
History of Chronic Kidney Disease Stage 3a
Gastroesophageal Reflux Disease
Hypertension
Hyperlipidemia
Anemia multifactorial due to acute blood loss,
Iron deficiency due to acute blood loss, anemia
of Chronic Disease, B12 deficiency
Hemorrhagic shock - resolved
Elevated Thyroid Stimulating Hormone
1.7 cm hypodensity in the left lobe of the
thyroid on CT Chest Imaging
Tiny Hypodensities on Liver
Diet Regular,Restrict fluids to 48 oz
Additional Activity Weight Bearing as Tolerated (as per orthopedics)
Blood Work Recheck your complete blood count and basic
metabolic panel with your primary care provider'
s office ideally by Thursday06/10/23 but no
later than 06/11/23
Repeat Thyroid function test with primary care
provider in 1 month of discharge.
Other Services VN
Wound Care Remove Aquacel dressing once home but leave
Prineo dressing in place
You need to check your blood pressure at home at
least 2x to 3x times per day as discussed -
your Valsartan and Amlodipine likely can be
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
provider no later than 06/11/23
The PO fluid restriction is for hyponatremia
Your primary care office will need to recheck
your Basic Metabolic Panel and Complete blood
count as mentioned above within 2 days to check
for any worsening anemia, sodium level, etc.
You need to have your Eliquis dosage considered
for increase with close hematology follow-up
appointment (hematology can refill your Eliquis)
Endocrinology follow-up with Dr. Morris for
thyroid lesion found on CT Imaging
Instructions: High blood pressure in adults
Anemia Caused by Low Iron, Adult (DC)
Hyponatremia
Apixaban
Sodium Test
Ferrous Sulfate
Stand-Alone Forms:
Changes to Home Medications: Yes
Discharge Medications:
DC Medications w/original date entered in [employer]
atorvastatin 20 mg tablet 20 mg PO QPM #90 tabs 05/01/22
Ageles Brain 2 cap PO DAILY Supplement 05/28/23
Brain Strong Supplement 2 cap PO DAILY Supplement 05/28/23
acetaminophen 325 mg tablet (Tylenol) 325 mg PO TID Pain 05/28/23
amlodipine 2.5 mg tablet 2.5 mg PO QPM Blood Pressure 05/28/23
calcium carb 333 mg-vit D3 133 unit-mag ox 133 mg-zinc oxide 5 mg tab 1 tab PO DAILY Supplement 05/28/23
lysine 500 mg tablet 1,500 mg PO DAILY Supplement 05/28/23
quercetin 500 mg capsule 500 mg PO DAILY Supplement 05/28/23
thymus gland calf 200 mg tablet,delayed release 200 mg PO DAILY Supplement 05/28/23
valsartan 160 mg tablet 160 mg PO DAILY Blood Pressure 05/28/23
apixaban 2.5 mg tablet (Eliquis) 2.5 mg PO BID #60 tabs 06/09/23
carvedilol 6.25 mg tablet 6.25 mg PO BID #60 tabs 06/09/23
cyanocobalamin (vitamin B-12) 1,000 mcg tablet 1,000 mcg PO DAILY #30 tabs 06/09/23
ferrous sulfate 325 mg (65 mg iron) tablet (FeroSul) 325 mg PO .MWF #60 tabs 06/09/23
lidocaine 4 % topical patch 2 patch topical DAILY #15 ea 06/09/23
sennosides 8.6 mg-docusate sodium 50 mg tablet (Stool Softener-Stimulant Laxative) 1 tab PO BID #60 tabs 06/09/23
Home Medication Changes
New Medications
Carvedilol dose reduced
Eliquis
Vitamin B12
Ferrous Sulfate
Lidocaine Patch
Sennosides-Docusate
Hold
Ageles Brain
Amlodipine
Valsartan
Brain Strong Supplement
Lysine Supplement
Quercetin
Thymus Gland
Stopped
Aspirin
Celecoxib
Pending Results: Yes
Additional Pending Results:
Methylmalonic Acid Level, Results of Celiac Studies
Total time spent discharging patient (in min): 42
[2023-06-10 13:56] LABS: tTG IgA Antibody 6.4 EU/ml (0-19); tTG IgG Antibody 4.1 EU/ml (0-19)
[2023-06-11 16:05] LABS: Intrinsic Factor Blocking Ab Negative (Negative)
[2023-06-11 16:56] LABS: Endomysial IgA Antibody Titer <1:10 (<1:10)
[2023-06-12 06:40] LABS: Methylmalonic Acid 0.12 umol/L (0.00-0.40)
--- NOTE | 2023-06-12 10:33 | W.DCSUMMARY ---
Discharge Summary
Discharge Data
Date of Admission: 05/28/23
Date of Discharge: 06/09/23
Total time spent discharging patient (in min): 42
-
Pending Results: Yes
Additional Pending Results:
Methylmalonic Acid Level, Results of Celiac Studies
Hospital Course
78 y/o female with past medical history of Nonobstructive Coronary Artery Disease, Stress-induced takotsubo cardiomyopathy, Hypertension, Osteoarthritis of the Knees, Recent Total Right Knee Replacement (8 days ago, with Dr. Batres), History of QTc
prolongation, Left Bundle Branch Block, Chronic Kidney Disease Stage 3a, Gastroesophageal Reflux Disease, Hypertension and Hyperlipidemia presented with chest pain that started around 7:30 AM on the day of presentation. Patient says the pain started
in her chest and wrapped around to her back, and it did hurt to take a deep breath at the same time and she did have some discomfort in her jaw. Patient says she was not aware that she was supposed to resume her Aspirin after her surgery and so she
has not been taking Aspirin after her recent right knee surgery (please see above).
Patient was found to have a right-sided pulmonary embolism (felt to be provoked following recent orthopedic surgery), and was started on Heparin Drip. Echocardiogram showed no right heart strain. Pulmonary was consulted. Patient's Heparin was later
stopped and Eliquis anticoagulation was started. Orthopedics was also consulted. On 05/31/23 patient developed hypotension, her right lower extremity had a more swollen and mottled appearance. Gastroenterology was also consulted given patient's
anemia and felt a gastrointestinal source of bleeding was less likely. CT of Lower Ext Angio with intravenous contrast was done, showing as per radiologist's report, 'IMPRESSION: Large hematomas anterior to the knee prosthesis and in the quadriceps
musculature with greatest involvement of the vastus intermedius muscle. No CTA evidence for active bleeding during the course of this exam.' Patient was transferred to the ICU, and needed vasopressors briefly for hemorrhagic shock. Anticoagulation
was held. Vascular surgery mentioned that there was no need for surgical intervention at this time. Patient's hemoglobin dropped to 7.6 and she was transfused 3 units of PRBCs. Patient had an IVC filter placed by interventional radiology.
Cardiology was also consulted and determined that patient did not need further Aspirin going forward. Patient was later started on Eliquis 2.5 mg BID - low dose due to her bleeding - and remained stable on this dose, with plans for close hematology
follow-up outpatient and the starting of Eliquis 5 mg BID. Patient was also given intravenous iron, as well started on PO iron and Vitamin B12.
Discharge Plan
-
Patient Disposition: Home with Home Care
Discharge Diagnosis/Procedures: QTc prolongation
Hyponatremia
Right-Sided Pulmonary Embolism, Concern for Being provoked from recent surgery
History of Nonobstructive Coronary Artery Disease
Stress-induced takotsubo cardiomyopathy
Hypertension, Significant Orthostatic Hypotension during stay here
Hemorrhagic shock while on anticoagulation for Pulmonary Embolism
Large hematomas at the right lower extremity
Right Lower Extremity Subcutaneous Edema
Minimal biapical pleural thickening
Small Pericardial Effusion on CT Imaging but not on Echocardiogram
Mild coronary artery calcifications on CT Imaging
Mild mitral regurgitation
Mild tricuspid regurgitation
Osteoarthritis of the Knees
Recent Total Right Knee Replacement in May 2023
Left Bundle Branch Block
History of Chronic Kidney Disease Stage 3a
Gastroesophageal Reflux Disease
Hypertension
Hyperlipidemia
Anemia multifactorial due to acute blood loss, Iron deficiency due to acute blood loss, anemia of Chronic Disease, B12 deficiency
Hemorrhagic shock - resolved
Elevated Thyroid Stimulating Hormone
1.7 cm hypodensity in the left lobe of the thyroid on CT Chest Imaging
Tiny Hypodensities on Liver
Condition: Fair
Diet: Regular and Restrict fluids to 48 oz
Additional Activity: Weight Bearing as Tolerated (as per orthopedics)
Blood Work: Recheck your complete blood count and basic metabolic panel with your primary care provider's office ideally by Thursday06/10/23 but no later than 06/11/23
Repeat Thyroid function test with primary care provider in 1 month of discharge.
Other Services: [facility]
Wound Care: Remove Aquacel dressing once home but leave Prineo dressing in place
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
than 06/11/23
The PO fluid restriction is for hyponatremia
Your primary care office will need to recheck your Basic Metabolic Panel and Complete blood count as mentioned above within 2 days to check for any worsening anemia, sodium level, etc.
You need to have your Eliquis dosage considered for increase with close hematology follow-up appointment (hematology can refill your Eliquis)
Endocrinology follow-up with Dr. Morris for thyroid lesion found on CT Imaging
Instructions: High blood pressure in adults, Anemia Caused by Low Iron, Adult (DC), Hyponatremia, Apixaban, Sodium Test, Ferrous Sulfate
Referrals:
Beronica Barroso DO [Active] - in two to four weeks
(6 weeks, PFTs
timing decision to remove IVC Filter
)
Leandra Huff MD [Active] - in one to two weeks (Re-evaluation for increasing Eliquis to full dose and also follow-up and management of anemia)
Alana Morris MD [Consulting Staff] - in one to two weeks (Left Thyroid Lobe Hypodensity on CT Imaging)
Halina Parker MD [Family Provider] - in two to three days
Barbara Patel MD [Active] - in two to three days (Re-evaluation for restarting Valsartan and Amlodipine, needs close cardiology follow-up)
Wesley Batres MD [Active] - 06/18/23
Prescriptions:
New
carvedilol 6.25 mg Tablet
6.25 mg PO BID Qty: 60 1RF
Eliquis 2.5 mg Tablet
2.5 mg PO BID Qty: 60 1RF
ferrous sulfate [FeroSul] 325 mg (65 mg iron) Tablet
325 mg PO .MWF Qty: 60 1RF
Rx Instructions:
Take on 325 mg each day on Thursday, Thursday and Thursday
lidocaine 4 % Adhesive Patch,Medicated
2 patch topical DAILY Qty: 15 1RF
Rx Instructions:
Remove patch every evening.
sennosides-docusate sodium [Stool Softener-Stimulant Laxat] 8.6-50 mg Tablet
1 tab PO BID Qty: 60 1RF
cyanocobalamin (vitamin B-12) 1,000 mcg Tablet
1,000 mcg PO DAILY Qty: 30 1RF
Continued
atorvastatin 20 mg Tablet
20 mg PO QPM Qty: 90 5RF
acetaminophen [Tylenol] 325 mg Tablet
325 mg PO TID
calcium carb-D3-mag ox-zinc ox 333 mg-133 unit -133 mg-5 mg Tablet
1 tab PO DAILY
Held
amlodipine 2.5 mg Tablet
2.5 mg PO QPM
Hold Instructions: Resume on 06/17/23. Discuss this with your primary care provider before resuming this medication.
valsartan 160 mg Tablet
160 mg PO DAILY
Hold Instructions: Resume on 06/17/23. Discuss this with your primary care provider before resuming this medication.
Ageles Brain
2 cap PO DAILY
Hold Instructions: Resume on 06/17/23. Discuss this with your primary care provider before resuming this medication.
thymus gland calf 200 mg Tablet,Delayed Release (Dr/Ec)
200 mg PO DAILY
Hold Instructions: Resume on 06/17/23. Discuss this with your primary care provider before resuming this medication.
lysine 500 mg Tablet
1,500 mg PO DAILY
Hold Instructions: Resume on 06/17/23. Discuss this with your primary care provider before resuming this medication.
quercetin 500 mg Capsule
500 mg PO DAILY
Hold Instructions: Resume on 06/17/23. Discuss this with your primary care provider before resuming this medication.
Brain Strong Supplement
2 cap PO DAILY
Hold Instructions: Resume on 06/17/23. Discuss this with your primary care provider before resuming this medication.
Discontinued
celecoxib 100 mg Capsule
100 mg PO BID
carvedilol [Coreg] 25 mg Tablet
25 mg PO BID
aspirin 81 mg Tablet,Delayed Release (Dr/Ec)
81 mg PO DAILY
Discharge Orders:
Discharge Patient (As Directed); Ordered 06/09/23
Ordered By: Evans Bahena
Discharge Date and Time
Discharge Date/Time: 06/09/23 16:31
== END 2023-06-09 16:31 | disposition home health service (06) | DRG 299 ==
LOC: 4 WEST ACU 15:53
PROVIDERS: Internal Medicine; Internal Medicine Critical Care Medicine; Nurse Practitioner Family; Nurse Practitioner Primary Care; Physician Assistant; Radiology Vascular & Interventional Radiology; ADMITTING PHYSICIAN Hospitalist; CONSULT PHYSICIAN Internal Medicine; CONSULT PHYSICIAN Internal Medicine Cardiovascular Disease; CONSULT PHYSICIAN Internal Medicine Gastroenterology; CONSULT PHYSICIAN Specialist; EMERGENCY PHYSICIAN Emergency Medicine; FAMILY PHYSICIAN Family Medicine; OTHER PHYSICIAN Internal Medicine Hematology & Oncology
PROC: 06H03DZ Insertion of Intraluminal Device into Inferior Vena Cava, Percutaneous Approach (ICD-10-PCS; 2023-06-01)
DX: T81.72XA Complication of vein following a procedure, not elsewhere classified, initial encounter (principal); R57.8 Other shock; I51.81 Takotsubo syndrome; E87.1 Hypo-osmolality and hyponatremia; M96.840 Postprocedural hematoma of a musculoskeletal structure following a musculoskeletal system procedure; D62 Acute posthemorrhagic anemia; I26.99 Other pulmonary embolism without acute cor pulmonale; N18.31 Chronic kidney disease, stage 3a; S80.11XA Contusion of right lower leg, initial encounter; D51.9 Vitamin B12 deficiency anemia, unspecified; M17.0 Bilateral primary osteoarthritis of knee; E11.22 Type 2 diabetes mellitus with diabetic chronic kidney disease; Z79.82 Long term (current) use of aspirin; Z79.01 Long term (current) use of anticoagulants; I25.10 Atherosclerotic heart disease of native coronary artery without angina pectoris
CPT/HCPCS: 37191; 71275; 73706; 80048; 80053; 82607; 82728; 82746; 82784; 83516; 83540; 83550; 83690; 83735; 83921; 84100; 84439; 84443; 84466; 84484; 85014; 85018; 85025; 85027; 85045; 85379; 85610; 85730; 86231; 86340; 86850; 86900; 86901; 86920; 93005; 93306; 93970; 96374; 97110; 97116; 97162; 97167; 97530; 97535; 99285; C1769; C1880; J2916; P9016; Q9967

== ENCOUNTER 2023-07-31 12:26 | Emergency (ER) | payer OTHER, SELFPAY ==
[2023-07-31 12:50] VITALS: BP 175/114
[2023-07-31 13:03] LABS: % Basophils 0.5 % (0-2); % Eosinophils 2.3 % (0-6); % Lymphocytes 43.5 % (20.5-51.1); % Monocytes 9.1 % (1.7-9.3); % Neutrophils 44.6 % (42.2-75.2); Absolute Eosinophils 0.1 10^3/uL (0-0.7); Absolute Lymphocytes 1.9 10^3/uL (1.2-3.4); Absolute Monocytes 0.4 10^3/uL (0.1-0.6); Absolute Neutrophils 1.9 10^3/uL (1.4-6.5); Hematocrit 37.6 % (37.0-47.0); Hemoglobin 12.8 g/dL (12.0-16.0); Mean Corpuscular Hgb 31.4 pg (27.0-31.0); Mean Corpuscular Volume 92.4 fL (81.0-99.0); Mean Platelet Volume 9.8 fL (7.4-10.4); Nucleated Red Blood Cells % 0 %; Platelet Count 196 10^3/uL (130-400); Red Blood Cell Count 4.07 10^6/uL (4.20-5.40); Red Cell Dist. Width 13.2 % (11.5-14.5); White Blood Cell Count 4.3 10^3/uL (4.8-10.8)
[2023-07-31 13:16] LABS: ALT (SGPT) 21 U/L (0-35); AST (SGOT) 28 U/L (14-36); Albumin 4.3 g/dl (3.5-5.0); Alkaline Phosphatase 83 U/L (38-126); Blood Urea Nitrogen 21 mg/dl (7-17); Calcium 9.5 mg/dl (8.4-10.2); Carbon Dioxide 31 mmol/L (22-30); Chloride 103 mmol/L (98-107); Glucose 98 mg/dl (70-99); Potassium 4.4 mmol/L (3.5-5.1); Sodium 136 mmol/L (135-145); Total Bilirubin 0.8 mg/dl (0.2-1.3); Total Protein 6.9 g/dl (6.3-8.2); eGFR > 60.00
[2023-07-31 13:27] LABS: Troponin I < 0.012 ng/ml
[2023-07-31 14:50] VITALS: BP 181/95
[2023-07-31 15:00] VITALS: BP 181/155
--- NOTE | 2023-07-31 15:42 | ED.GENMED ---
History of Present Illness
General
Chief Complaint: Chest Pain
Time Seen by Provider: 07/31/23 15:01
Travel History
Have you had any contact with someone who has COVID-19?: No
Do you have any symptoms of coronavirus? Fever > 100 degrees, chills, cough, shortness of breath, sore throat, loss of taste or smell, muscle aches, or headache?: No
History of Present Illness
History of Present Illness:
78-year-old female with history of hypertension, coronary artery disease, recent PE provoked by knee surgery currently off dose Eliquis presents to the emergency department for evaluation of sudden onset sharp pain to the chest radiating to the
thoracic back to the jaw. Pain occurred approximately 2 to 3 hours prior to my evaluation. Pain lasted for approximately 30 to 60 minutes before resolving. She is currently symptom-free. She states it is similar to her symptoms patient was
diagnosed with a PE. During that hospital stay the patient experienced hemorrhaging related to her right knee replacement which resulted anticoagulation being withheld and subsequent IVC filter was placed. Since that stay she has since been
discharged dose of Eliquis.
Past History
Past History
ED Past Medical History: HTN; Negative CAD, IDDM or NIDDM
ED Past Surgical History: Negative Cardiac
Social History
Tobacco: Non-smoker
Alcohol: Occasional
Drug: None
Personal:
Living: alone
Employment: Retired
Family History
Family History: Other (Noncontributory); Negative CAD or Sudden
Review of Systems
Review of Systems
Allergies reviewed?: Yes
All Other Systems: ROS reviewed and negative except as documented in HPI and ROS
Phy Exam
Physical Exam
Physical Exam:
GEN: Well appearing, NAD, WDWN
Eyes: PERRLA, EOMs intact, no scleral icterus
HENT: NCAT, oral mucosa moist
Lungs: CTAB, no wheezes, rales, rhonchi, normal chest wall excursion
Cardiac: RRR, no M/R/G, no peripheral edema. Radial pulses 2+ bilat
Abdomen: S, NT, ND, NABS, no masses or hepatosplenomegaly
Neuro: AO x 3
MSK: No gross deformity or ecchymosis. No edema. No digital clubbing
Skin: No rashes, petechiae. Normal color, no pallor or jaundice.
Psych: Calm, cooperative, proper hygiene
Scores
Heart Score for Chest Pain Patients
STEMI patient?: No
History: Slightly or Non-Suspicious
ECG: Nonspecific Repolarization
Age: >/= 65 years
Risk Factors: >/= 3 Risk Factors or History of CAD
Troponin: </= Normal Limit
Heart Score for Chest Pain Patients: 5
Heart Score Risk: 20.3% MACE over next 6 weeks
Course
Orders/Labs/Results
Orders:
Orders
07/31/23 12:45
ECG [Electrocardiogram (*1)] Urgent
Reason for Study: Chest Pain
07/31/23 12:46
EKG- Treatment ONCE
07/31/23 12:55
Complete Blood Count/With Diff Urgent
Comprehensive Metabolic Panel Urgent
Troponin I Urgent
07/31/23 15:20
CR Chest - 2 Views Urgent
Comment:
Reason For Exam: chest pain
07/31/23 15:59
Troponin I Routine
07/31/23 16:47
CT Chest Pe Study Urgent
Comment:
Reason For Exam: chest pain
Abnormal Lab Results
07/31/23
12:55
WBC 4.3 L 10^3/uL
(4.8-10.8)
RBC 4.07 L 10^6/uL
(4.20-5.40)
MCH 31.4 H pg
(27.0-31.0)
Carbon Dioxide 31 H mmol/L
(22-30)
BUN 21 H mg/dl
(7-17)
07/31/23 12:55
07/31/23 12:55
Vital Signs
Initial and Last Documented VS:
Initial Vital Signs
Temp Pulse Resp BP Pulse Ox
98.2 F 75 18 175/114 98
07/31/23 12:50 07/31/23 12:50 07/31/23 12:50 07/31/23 12:50 07/31/23 12:50
Last Documented Vital Signs
Temp Pulse Resp BP Pulse Ox
98.2 F 74 15 167/96 97
07/31/23 12:50 07/31/23 18:37 07/31/23 18:37 07/31/23 18:37 07/31/23 18:37
MDM/Problems Addressed
MDM/Problems Addressed:
78-year-old female presenting with acute onset of chest pain. Upon my evaluation the patient's pain is resolved. EKG is nonischemic and troponins are negative. Although she is anticoagulated CT chest given that she is on half dose Eliquis
endplate symptoms are quite comparable to her past PE, fortunately this was unremarkable. Had no further symptoms in the emergency department. She was noted to be markedly hypertensive throughout emergency department stay, it is noted that at
discharge from her last hospital stay several of her antihypertensives were reduced or discontinued altogether. Given the hypertension I will up her amlodipine from 2.5 to 5 mg and recommend primary care follow-up within the next week
Comment
Comment:
EKG independently interpreted by me shows normal sinus rhythm at a rate of 74 with a left bundle branch block and left axis deviation, no concerning ST changes, QTc of 479
*Critical Care Note
Total Time (30-74mins, 75-104mins- exclusive of procedures): Not Applicable
ED Attending Note
-
Portions of this chart may have been created with voice recognition software.� Occasional wrong word or��sound alike� substitutions may have occurred due to the inherent limitations of voice recognition software.
Discharge Plan
Departure
Patient Disposition: Home (Routine Discharge)
Date of Disposition: 07/31/23
Time of Disposition: 18:29
Patient with high blood pressure during this ER visit?: Yes
Discharge Problem:
Hypertension, Atypical chest pain
Instructions: Chest Pain (DC)
Prescriptions:
No Action
atorvastatin 20 mg Tablet
20 mg PO QPM Qty: 90 5RF
carvedilol 6.25 mg Tablet
6.25 mg PO BID Qty: 60 1RF
Eliquis 2.5 mg Tablet
2.5 mg PO BID Qty: 60 1RF
cyanocobalamin (vitamin B-12) 1,000 mcg Tablet
1,000 mcg PO DAILY Qty: 30 1RF
sennosides [senna] 8.6 mg Tablet
8.6 mg PO DAILY
sennosides [senna] 8.6 mg Tablet
8.6 mg PO Q48H@1800
amlodipine 2.5 mg Tablet
2.5 mg PO QPM
Blueberry Supplement
2 tab PO DAILY
Referrals:
Halina Parker MD [Family Provider] -
Activity Restrictions/Additional Instructions:
Increase your amlodipine from 2.5mg to 5mg daily
Please see your primary doctor in 1 week
Interventions
Interventions:
*Risk Screen - Suicide Last Done: 07/31/23 16:30
*General Assessment Last Done: 07/31/23 16:30
*Neglect/Abuse Screening Last Done: 07/31/23 16:30
ED- Fall Risk Assessment Last Done: 07/31/23 16:30
*ED COVID-19 Vaccine History Last Done: 07/31/23 12:50
*Nursing Disposition Last Done: 07/31/23 18:57
ED- Cardiac Assessment Last Done: 07/31/23 16:30
Discharge Date and Time
Discharge Date/Time: 07/31/23 18:58
Print Language: TAJIK
[2023-07-31 16:18] VITALS: BP 182/98
[2023-07-31 16:31] LABS: Troponin I < 0.012 ng/ml
[2023-07-31 18:37] VITALS: BP 167/96
== END 2023-07-31 18:58 | disposition home or self-care (01) ==
LOC: EMR 12:26
PROVIDERS: Emergency Medicine; Physician Assistant; EMERGENCY PHYSICIAN Emergency Medicine; FAMILY PHYSICIAN Family Medicine
DX: R07.89 Other chest pain (principal); M54.6 Pain in thoracic spine; R68.84 Jaw pain; I10 Essential (primary) hypertension; I44.7 Left bundle-branch block, unspecified; I25.10 Atherosclerotic heart disease of native coronary artery without angina pectoris; Z96.651 Presence of right artificial knee joint; Z86.711 Personal history of pulmonary embolism; Z98.890 Other specified postprocedural states; Z79.01 Long term (current) use of anticoagulants; Z91.040 Latex allergy status
CPT/HCPCS: 99285; 71046; 71275; 80053; 84484; 85025; 93005; Q9967

== ENCOUNTER → 2023-09-10 12:31 | Outpatient (REF) | payer OTHER, SELFPAY | LOC: HWRAD 12:31 | PROVIDERS: ATTENDING PHYSICIAN Nurse Practitioner; FAMILY PHYSICIAN Family Medicine | DX: R35.0 Frequency of micturition (principal) | CPT/HCPCS: 76770; 76856 ==

== ENCOUNTER → 2023-09-29 08:35 | Outpatient (REF) | payer OTHER, SELFPAY ==
[2023-09-29 08:58] VITALS: BP 167/93; BP_SYST 65
[2023-09-29 12:00] VITALS: BP 154/103; BP_SYST 70
[2023-09-29 12:15] VITALS: BP 127/95; BP_SYST 71
[2023-09-29 12:30] VITALS: BP 128/91; BP_SYST 69
== END ==
LOC: RADI 08:35
PROVIDERS: ATTENDING PHYSICIAN Internal Medicine Critical Care Medicine; FAMILY PHYSICIAN Family Medicine
DX: Z45.89 Encounter for adjustment and management of other implanted devices (principal); Z79.01 Long term (current) use of anticoagulants; Z86.711 Personal history of pulmonary embolism
CPT/HCPCS: 36010; 37193; 75825; 76937; 99152; 99153; C1769; C1773

== ENCOUNTER 2024-01-31 18:19 | Emergency (ER) | payer OTHER, SELFPAY ==
[2024-01-31 18:23] VITALS: BP 119/76
[2024-01-31 18:43] LABS: % Basophils 0.8 % (0-2); % Immature Granulocytes 0.3 % (0-0.5); % Lymphocytes 34.2 % (20.5-51.1); % Monocytes 10.1 % (1.7-9.3); % Neutrophils 53.6 % (42.2-75.2); Absolute Lymphocytes 1.4 10^3/uL (1.2-3.4); Absolute Monocytes 0.4 10^3/uL (0.1-0.6); Absolute Neutrophils 2.1 10^3/uL (1.4-6.5); Hemoglobin 12.9 g/dL (12.0-16.0); Mean Corp Hgb Conc. 34.9 g/dL (33.0-37.0); Mean Corpuscular Hgb 32.7 pg (27.0-31.0); Mean Corpuscular Volume 93.7 fL (81.0-99.0); Mean Platelet Volume 9.7 fL (7.4-10.4); Nucleated Red Blood Cells % 0 %; Platelet Count 179 10^3/uL (130-400); Red Blood Cell Count 3.95 10^6/uL (4.20-5.40); Red Cell Dist. Width 12.7 % (11.5-14.5)
--- NOTE | 2024-01-31 19:03 | ED.GENMED ---
History of Present Illness
General
Chief Complaint: Abdominal Pain
Source: patient and family
Exam Limitations: none
Time Seen by Provider: 01/31/24 18:46
History of Present Illness
History of Present Illness:
This is 78-year-old female who presents with lower abdominal pain. Patient states it seems like it starting on the left radiating toward the right. Patient admits that this pain has been somewhat constant but does seem to wax and wane. No fevers.
No vomiting. No melena or hematochezia. She did have low constipation took some gastro but then had some loose stools but does not suspect that the issue. She states she thought the pain was get little better after drinking some water but pain
does persist. No urinary complaints. She did recently have Botox to her bladder. She has follow-up with urology upcoming
Past History
Past History
ED Past Medical History: HTN; Negative CAD, IDDM or NIDDM
ED Past Surgical History: Negative Cardiac
Social History
Tobacco: Non-smoker
Alcohol: Occasional
Drug: None
Personal:
Living: alone
Employment: Retired
Family History
Family History: Other (Noncontributory); Negative CAD or Sudden
Phy Exam
Physical Exam
Physical Exam:
CONSTITUTIONAL Patient alert and oriented to person, place and time. Well-appearing. Vital signs reviewed.
HEAD atraumatic, normocephalic.
EYES eyelids normal to inspection, Extraocular muscles intact, Conjunctiva normal, Sclera normal.
NECK normal range of motion, Trachea midline, no jugular venous distention.
RESPIRATORY CHEST No respiratory distress noted, Chest expansion equal, Bilateral breath sounds clear.
CARDIOVASCULAR regular rate and rhythm, Heart sounds normal.
ABDOMEN mild distention, normal bowel sounds, moderate McBurney's point/right lower quadrant tenderness, mild suprapubic/infraumbilical tenderness.
BACK normal inspection, no obvious deformities
UPPER EXTREMITY range of motion normal, Motor strength normal, no cyanosis, no edema.
LOWER EXTREMITY range of motion normal, Motor strength normal, no cyanosis, no edema.
NEURO Speech normal, No focal motor deficits, Le Grand coma scale 15, Memory normal, Cranial Nerves intact to screening exam.
SKIN skin warm, dry, and normal in color.
Course
Orders/Labs/Results
Orders:
Orders
01/31/24 18:33
Complete Blood Count/With Diff Urgent
Comprehensive Metabolic Panel Urgent
01/31/24 19:03
CT Abd/Pel (IV only)-DH only Urgent
Comment:
Reason For Exam: RLQ/abd pain
01/31/24 21:30
Urinalysis Reflex To Culture Urgent
Date Specimen was Collected: 01/31/24
Time Specimen was Collected: 21:21
Abnormal Lab Results
01/31/24
18:33
WBC 4.0 L 10^3/uL
(4.8-10.8)
RBC 3.95 L 10^6/uL
(4.20-5.40)
MCH 32.7 H pg
(27.0-31.0)
Monocytes % 10.1 H %
(1.7-9.3)
BUN 30 H mg/dl
(7-17)
Creatinine 1.2 H mg/dL
(0.6-1.0)
Glucose 138 H mg/dl
(70-99)
01/31/24 18:33
01/31/24 18:33
Vital Signs
Initial and Last Documented VS:
Initial Vital Signs
Temp Pulse Resp BP Pulse Ox
98.3 F 78 16 119/76 95
01/31/24 18:23 01/31/24 18:23 01/31/24 18:23 01/31/24 18:23 01/31/24 18:23
Last Documented Vital Signs
Temp Pulse Resp BP Pulse Ox
98.3 F 69 16 132/72 96
01/31/24 18:23 01/31/24 21:21 01/31/24 18:23 01/31/24 22:00 01/31/24 22:15
MDM/Problems Addressed
Differential Diagnosis Includes:
Acute appendicitis, UTI, diverticulitis, colitis, ischemic colitis, AAA
MDM/Problems Addressed:
Abdominal pain
*Pulse Oximetry
Patient hypoxic: no
*Critical Care Note
Total Time (30-74mins, 75-104mins- exclusive of procedures): Not Applicable
Data Reviewed
Source: patient and family
Prescriptions/Medications Considered But Not Given:
Considered antibiotics but no evidence of diverticulitis or appendicitis on CT
Patient Management
Escalation/DeEscalation of care consider admission/obs:
Patient does have an ovarian cyst that is unchanged but otherwise CT unremarkable with exception of mild hydronephrosis. Urinalysis negative. No clear obstruction as per radiology. Recommended outpatient follow-up. White count normal
ED Attending Note
-
Portions of this chart may have been created with voice recognition software.� Occasional wrong word or��sound alike� substitutions may have occurred due to the inherent limitations of voice recognition software.
Discharge Plan
Departure
Patient Disposition: Home (Routine Discharge)
Date of Disposition: 01/31/24
Time of Disposition: 22:38
Patient with high blood pressure during this ER visit?: No
Discharge Problem:
Abdominal pain
Instructions: Abdominal Pain
Prescriptions:
No Action
atorvastatin 20 mg Tablet
20 mg PO QPM Qty: 90 5RF
carvedilol 6.25 mg Tablet
6.25 mg PO BID Qty: 60 1RF
cyanocobalamin (vitamin B-12) 1,000 mcg Tablet
1,000 mcg PO DAILY Qty: 30 1RF
amlodipine 2.5 mg Tablet
5 mg PO QPM
Eliquis 2.5 mg tablet
5 mg PO BID
Referrals:
Halina Parker MD [Family Provider] -
Activity Restrictions/Additional Instructions:
Please see your doctor in the next 2 to 3 days for follow-up and reevaluation. Please have your doctor follow-up on your CT scan results. Return immediately for intractable vomiting, worsening pain, fevers or any other concerns.
Interventions
Interventions:
*Risk Screen - Suicide Last Done: 01/31/24 21:21
*General Assessment Last Done: 01/31/24 21:21
*Neglect/Abuse Screening Last Done: 01/31/24 21:21
*ED COVID-19 Vaccine History Last Done: 01/31/24 21:21
HU-Htvfyj-Uyfktalwvw Assessment Last Done: 01/31/24 21:21
Discharge Date and Time
Print Language: PORTUGUESE
[2024-01-31 19:06] LABS: ALT (SGPT) 26 U/L (0-35); AST (SGOT) 31 U/L (14-36); Albumin 4.1 g/dl (3.5-5.0); Alkaline Phosphatase 57 U/L (38-126); Blood Urea Nitrogen 30 mg/dl (7-17); Calcium 9.3 mg/dl (8.4-10.2); Carbon Dioxide 27 mmol/L (22-30); Chloride 101 mmol/L (98-107); Glucose 138 mg/dl (70-99); Potassium 3.9 mmol/L (3.5-5.1); Sodium 139 mmol/L (135-145); Total Protein 6.4 g/dl (6.3-8.2); eGFR 46.62
[2024-01-31 21:21] VITALS: BMI 26.2
[2024-01-31 21:23] VITALS: BP 134/76
[2024-01-31 21:47] LABS: Urine Albumin Negative (Neg - Trace); Urine Bilirubin Negative (Negative); Urine Character Clear (Clear); Urine Color Yellow; Urine Glucose Negative (Negative); Urine Ketone Negative (Negative); Urine Leukocyte Negative (Negative); Urine Nitrite Negative (Negative); Urine Occult Blood Negative (Negative); Urine Urobilinogen Negative (Neg - 1+)
[2024-01-31 22:00] VITALS: BP 132/72
== END 2024-01-31 23:05 | disposition home or self-care (01) ==
LOC: EMR 18:19
PROVIDERS: EMERGENCY PHYSICIAN Emergency Medicine; FAMILY PHYSICIAN Family Medicine
DX: R10.30 Lower abdominal pain, unspecified (principal); I10 Essential (primary) hypertension
CPT/HCPCS: 99285; 74177; 80053; 81003; 85025; Q9967

== ENCOUNTER → 2024-04-26 09:16 | Outpatient (REF) | payer OTHER, SELFPAY | LOC: HWRAD 09:16 | PROVIDERS: ATTENDING PHYSICIAN Family Medicine | DX: E04.1 Nontoxic single thyroid nodule (principal) | CPT/HCPCS: 76536 ==

== ENCOUNTER 2024-06-27 23:00 | Emergency (ER) | payer OTHER, SELFPAY ==
[2024-06-27 23:02] VITALS: BP 170/90
[2024-06-27 23:22] VITALS: BP 153/87
[2024-06-28] VITALS: BP 134/75
[2024-06-28 02:09] LABS: % Eosinophils 0.6 % (0-6); % Immature Granulocytes 0.8 % (0-0.5); % Lymphocytes 27.2 % (20.5-51.1); % Monocytes 12.4 % (1.7-9.3); Absolute Lymphocytes 1.4 10^3/uL (1.2-3.4); Absolute Monocytes 0.6 10^3/uL (0.1-0.6); Hematocrit 32.9 % (37.0-47.0); Hemoglobin 11.6 g/dL (12.0-16.0); Mean Corp Hgb Conc. 35.3 g/dL (33.0-37.0); Mean Corpuscular Hgb 32.7 pg (27.0-31.0); Mean Corpuscular Volume 92.7 fL (81.0-99.0); Mean Platelet Volume 9.8 fL (7.4-10.4); Nucleated Red Blood Cells % 0 %; Platelet Count 162 10^3/uL (130-400); Red Blood Cell Count 3.55 10^6/uL (4.20-5.40)
--- NOTE | 2024-06-28 02:21 | ED.GENMED ---
History of Present Illness
General
Chief Complaint: DVT/Possible Blood Clot
Source: patient and family (Son)
Time Seen by Provider: 06/28/24 00:54
Nursing documentation reviewed up to this point in time: agreed with
History of Present Illness
History of Present Illness:
The patient is a very pleasant 79-year-old female who recently underwent left knee surgery 4 days ago. She and her son that she was started on 2.5 mg of Eliquis twice a day immediately after knee surgery as a preventative against DVT/PE. Her son
reports that he grew concerned when he noticed a hematoma along the inner aspect of the patient's left thigh and wanted to make sure that the patient was not developing a blood clot in her left leg. Additionally, patient reports she had a brief
episode of intense chest pain several nights ago that lasted under a minute. Since then, patient has had absolutely no chest pain. She denies cough and shortness of breath. She denies fever. Family reports she recently started physical therapy.
Past History
Past History
ED Past Medical History: CAD, HTN, Hypercholesterolemia and Other (PE after right knee surgery)
ED Past Surgical History: Orthopedic
Social History
Tobacco: Non-smoker
Alcohol: Occasional
Drug: None
Personal:
Living: alone
Employment: Retired
Family History
Family History: Other (Noncontributory)
Review of Systems
Review of Systems
Allergies reviewed?: Yes
All Other Systems: ROS reviewed and negative except as documented in HPI and ROS
Constitutional: Reports no symptoms
EENT: Reports no symptoms
Respiratory: Reports no symptoms
Cardiac: Reports chest pain
ABD/GI: Reports no symptoms
: Reports no symptoms
Musculoskeletal: Reports joint pain and edema
Skin: Reports no symptoms
Neurological: Reports no symptoms
Endocrine: Reports no symptoms
Hematologic/Lymphatic: Reports bruising
Psychiatric: Reports no symptoms
Phy Exam
Physical Exam
Physical Exam:
Physical Exam
General: no apparent distress, not acutely. well-appearing, smiling
Neck: supple. no meningeal signs. normal psoterior pharynx
Heart: s1/s2 regular rate and rhythm, no murmur. equal radial pulses.
Lungs: no acute respiratory distress. clear bilaterally
Abdomen: normal bowel sounds. not tender. no CVAT
Neuro: alert and oriented. no focal neurological deficits
Skin: no rash
Psychiatric: well kept. interactive and cooperative
Extremities: 1+ pitting edema bilateral lower extremities. Ecchymotic and swollen left knee covered with surgical bandage. medial left thigh hematoma. Strong pulses in bilateral feet. Nontender calves bilaterally
Course
Orders/Labs/Results
Orders:
Orders
06/28/24 00:15
Periph Venous Lwr Ext Left US [US Periph Venous LOWER Ext LT] Urgent
Comment:
Reason For Exam: possible dvt
06/28/24 01:40
Electrocardiogram (*1) Urgent
Reason for Study: Chest Pain
EKG- Treatment ONCE
06/28/24 01:41
CT Chest PE Study Urgent
Comment:
Reason For Exam: CP
06/28/24 01:43
Complete Blood Count/With Diff Urgent
Comprehensive Metabolic Panel Urgent
Troponin I Urgent
06/28/24 02:39
0.9% Sodium Chloride 250 ml [Nss] 250 ml IV BOLUS
Abnormal Lab Results
06/28/24
01:43
RBC 3.55 L 10^6/uL
(4.20-5.40)
Hgb 11.6 L g/dL
(12.0-16.0)
Hct 32.9 L %
(37.0-47.0)
MCH 32.7 H pg
(27.0-31.0)
Immature Gran % 0.8 H %
(0-0.5)
Monocytes % 12.4 H %
(1.7-9.3)
BUN 35 H mg/dl
(7-17)
Glucose 103 H mg/dl
(70-99)
Total Protein 6.2 L g/dl
(6.3-8.2)
06/28/24 01:43
06/28/24 01:43
Vital Signs
Initial and Last Documented VS:
Initial Vital Signs
Temp Pulse Resp BP Pulse Ox
97.9 F 68 22 170/90 97
06/27/24 23:02 06/27/24 23:02 06/27/24 23:02 06/27/24 23:02 06/27/24 23:02
Last Documented Vital Signs
Temp Pulse Resp BP Pulse Ox
97.9 F 80 20 158/94 94
06/27/24 23:02 06/28/24 03:34 06/28/24 03:34 06/28/24 03:34 06/28/24 00:30
MDM/Problems Addressed
Differential Diagnosis Includes:
Left leg DVT, left leg hematoma, acute coronary syndrome, PE
MDM/Problems Addressed:
Patient presents with acute chest pain that is resolved as well as acute left thigh hematoma
Chronic conditions affecting care:
Patient has a history of PE that occurred after prior orthopedic surgery so she can be at increased risk of developing this again
Acute Exacerbation and/or Progression of Chronic Illness:
Patient is likely acutely hypertensive due to anxiety being in the ED
Acute Exacerbation and/or Progression of Chronic Illness: HTN
*Radiology
Radiology exam reviewed: radiology read reviewed
*Pulse Oximetry
Patient hypoxic: no
*EKG
Interpreted by ED Provider?: NA
Interpretation: abnormal
Comparison EKG: no changes
Rate: normal
Rhythm: sinus
Interval: normal interval
QRS Pattern: left vent hypertrophy
Ischemia: non-specific ST changes
*Rose Grading Supervisor Interpretation
Rate: normal
Interpretation: normal
Rhythm: sinus
*Critical Care Note
Total Time (30-74mins, 75-104mins- exclusive of procedures): Not Applicable
Data Reviewed
Review of Other/Old Records Reveals: Progress Notes (Progress note reviewed from Dr. Meredith from 2023 which discussed patient's acute PE and IVC filter was placed)
Source: patient and family
Update Note
Update Note:
Patient remains hemodynamically stable. It is unlikely she is acute coronary syndrome given that her EKG is unchanged and troponin is normal. There is no PE seen on CAT scan of the chest
Patient and family instructed to follow-up with Dr. Batres in regards to whether she should continue the Eliquis or switch to aspirin.
ED Attending Note
-
Portions of this chart may have been created with voice recognition software.� Occasional wrong word or��sound alike� substitutions may have occurred due to the inherent limitations of voice recognition software.
Discharge Plan
Departure
Patient Disposition: Home (Routine Discharge)
Date of Disposition: 06/28/24
Time of Disposition: 04:17
Patient with high blood pressure during this ER visit?: Yes
Condition: Good
Covid-19: Not Applicable
Discharge Problem:
Hematoma of left thigh
Instructions: BLOOD PRESSURE, Hematoma
Prescriptions:
No Action
atorvastatin 20 mg Tablet
20 mg PO QPM Qty: 90 5RF
carvedilol 6.25 mg Tablet
6.25 mg PO BID Qty: 60 1RF
cyanocobalamin (vitamin B-12) 1,000 mcg Tablet
1,000 mcg PO DAILY Qty: 30 1RF
amlodipine 2.5 mg Tablet
5 mg PO QPM
Eliquis 2.5 mg tablet
5 mg PO BID
Referrals:
Halina Parker MD [Family Provider] -
Wesley Batres MD [Active] - (Call the office today to discuss your bruising.)
Activity Restrictions/Additional Instructions:
Please call Dr. Batres's office today and let him know that you have developed extensive bruising of the left inner thigh and ask if you should continue the Eliquis.
Please apply an ice pack to the bruising several times a day
Interventions
Interventions:
*Risk Screen - Suicide Last Done: 06/27/24 23:02
*General Assessment Last Done: 06/27/24 23:26
*Neglect/Abuse Screening Last Done: 06/27/24 23:02
*ED- Fall Risk Assessment Last Done: 06/27/24 23:26
*ED COVID-19 Vaccine History Last Done: 06/28/24 01:30
ED- Cardiac Assessment Last Done: 06/28/24 02:03
ED- Pulmonary Assessment Last Done: 06/27/24 23:26
ED-Peripheral Vascular Assessment Last Done: 06/27/24 23:26
ED-Skin Assessment Last Done: 06/27/24 23:26
Discharge Date and Time
Print Language: PERUVIAN
[2024-06-28 02:22] LABS: ALT (SGPT) 26 U/L (0-35); AST (SGOT) 28 U/L (14-36); Alkaline Phosphatase 83 U/L (38-126); Blood Urea Nitrogen 35 mg/dl (7-17); Carbon Dioxide 30 mmol/L (22-30); Chloride 101 mmol/L (98-107); Glucose 103 mg/dl (70-99); Potassium 3.9 mmol/L (3.5-5.1); Sodium 136 mmol/L (135-145); Total Bilirubin 1.3 mg/dl (0.2-1.3); Total Protein 6.2 g/dl (6.3-8.2); eGFR > 60.00
[2024-06-28 02:39] LABS: Troponin I < 0.012 ng/ml
[2024-06-28] MEDS: NSS 250 IV (03:00)
[2024-06-28 03:34] VITALS: BP 158/94
[2024-06-28 04:00] VITALS: BP 150/98
[2024-06-28 04:39] VITALS: BP 150/98
== END 2024-06-28 04:35 | disposition home or self-care (01) ==
LOC: EMR 23:00
PROVIDERS: EMERGENCY PHYSICIAN Emergency Medicine; FAMILY PHYSICIAN Family Medicine
DX: M96.840 Postprocedural hematoma of a musculoskeletal structure following a musculoskeletal system procedure (principal); Y83.8 Other surgical procedures as the cause of abnormal reaction of the patient, or of later complication, without mention of misadventure at the time of the procedure; R07.9 Chest pain, unspecified; R60.0 Localized edema; E78.00 Pure hypercholesterolemia, unspecified; I10 Essential (primary) hypertension; I25.10 Atherosclerotic heart disease of native coronary artery without angina pectoris; Z86.711 Personal history of pulmonary embolism; Z79.01 Long term (current) use of anticoagulants
CPT/HCPCS: 99284; 71275; 80053; 84484; 85025; 93005; 93971; Q9967

== ENCOUNTER 2024-07-07 18:40 | Outpatient (RCR) | payer OTHER, SELFPAY | END 2024-07-07 23:59 | disposition home or self-care (01) | LOC: RPT 18:40 | PROVIDERS: ATTENDING PHYSICIAN Orthopaedic Surgery; FAMILY PHYSICIAN Family Medicine | DX: Z47.1 Aftercare following joint replacement surgery (principal); R26.2 Difficulty in walking, not elsewhere classified; M62.81 Muscle weakness (generalized); M25.562 Pain in left knee; Z73.6 Limitation of activities due to disability; Z96.652 Presence of left artificial knee joint | CPT/HCPCS: 97010; 97110; 97162 ==

== ENCOUNTER 2024-08-03 09:48 | Outpatient (RCR) | payer OTHER, SELFPAY | END 2024-08-03 23:59 | disposition home or self-care (01) | LOC: RPT 09:48 | PROVIDERS: ATTENDING PHYSICIAN Orthopaedic Surgery; FAMILY PHYSICIAN Family Medicine | DX: Z47.1 Aftercare following joint replacement surgery (principal); R26.2 Difficulty in walking, not elsewhere classified; M62.81 Muscle weakness (generalized); M25.562 Pain in left knee; Z73.6 Limitation of activities due to disability; Z96.652 Presence of left artificial knee joint | CPT/HCPCS: 97010; 97110 ==

== ENCOUNTER → 2024-08-29 10:26 | Outpatient (REF) | payer OTHER, SELFPAY | LOC: RAD 10:26 | PROVIDERS: ATTENDING PHYSICIAN Family Medicine | DX: R13.10 Dysphagia, unspecified (principal) | CPT/HCPCS: 74246 ==

== ENCOUNTER → 2024-10-05 15:56 | Outpatient (REF) | payer OTHER, SELFPAY | LOC: RAD 15:56 | PROVIDERS: ATTENDING PHYSICIAN Nurse Practitioner Family; FAMILY PHYSICIAN Family Medicine | DX: M25.511 Pain in right shoulder (principal) | CPT/HCPCS: 73030 ==

== ENCOUNTER 2024-11-08 10:03 | Outpatient (RCR) | payer OTHER, SELFPAY | END 2024-11-08 23:59 | disposition home or self-care (01) | LOC: RPT 10:03 | PROVIDERS: ATTENDING PHYSICIAN Nurse Practitioner Family; FAMILY PHYSICIAN Family Medicine | DX: M25.511 Pain in right shoulder (principal); Z73.6 Limitation of activities due to disability; M62.81 Muscle weakness (generalized); M25.522 Pain in left elbow; M25.521 Pain in right elbow; M54.2 Cervicalgia; Z91.81 History of falling | CPT/HCPCS: 97110; 97162 ==

== ENCOUNTER 2024-12-07 10:46 | Outpatient (RCR) | payer OTHER, SELFPAY | END 2024-12-07 23:59 | disposition home or self-care (01) | LOC: RPT 10:46 | PROVIDERS: ATTENDING PHYSICIAN Nurse Practitioner Family; FAMILY PHYSICIAN Family Medicine | DX: M25.511 Pain in right shoulder (principal); Z73.6 Limitation of activities due to disability; M62.81 Muscle weakness (generalized); M25.522 Pain in left elbow; M25.521 Pain in right elbow; M54.2 Cervicalgia; Z91.81 History of falling | CPT/HCPCS: 97110 ==

== ENCOUNTER 2025-01-10 10:53 | Outpatient (RCR) | payer OTHER, SELFPAY | END 2025-01-10 23:59 | disposition home or self-care (01) | LOC: RPT 10:53 | PROVIDERS: ATTENDING PHYSICIAN Nurse Practitioner Family; FAMILY PHYSICIAN Family Medicine | DX: M25.511 Pain in right shoulder (principal); Z73.6 Limitation of activities due to disability; M62.81 Muscle weakness (generalized); M25.522 Pain in left elbow; M25.521 Pain in right elbow; M54.2 Cervicalgia; Z91.81 History of falling | CPT/HCPCS: 97110 ==

== ENCOUNTER 2025-02-01 18:04 | Emergency (ER) | payer OTHER, SELFPAY ==
[2025-02-01 18:11] VITALS: BP 124/82
--- NOTE | 2025-02-01 19:38 | ED.GENMED ---
History of Present Illness
General
Chief Complaint: Musculo-Skeletal Complaint
Source: patient
Exam Limitations: none
Time Seen by Provider: 02/01/25 18:52
Nursing documentation reviewed up to this point in time: agreed with
History of Present Illness
History of Present Illness:
Patient is a 79-year-old female past med history of PE on Eliquis hypertension [place] no longer on thinners presents to the ER after fall. Patient was holding a box of frozen meat when she tripped off a curb and fell onto her left ankle and knee. She
denies any her head. Denies any neck pain headache, nausea/vomiting. She is able to bear weight.
Past History
Past History
ED Past Medical History: CAD, HTN, Hypercholesterolemia and Other (PE after right knee surgery)
ED Past Surgical History: Orthopedic
Social History
Tobacco: Non-smoker
Alcohol: Occasional
Drug: None
Personal:
Living: alone
Employment: Retired
Family History
Family History: Other (Noncontributory)
Phy Exam
General Physical Exam
General Presentation: no apparent distress
General age: appears stated age
General Skin: warm and dry
General Habitus: elderly
General Mental: alert
General Hydration: appears well hydrated
Eye Exam
Eye Exam: PERRL and EOMI
Eye Exam General: PERRL: bilateral and EOM intact: bilateral
Pupil Exam: Bilateral: round and reactive
Neurological Exam
Neurological Exam: alert and oriented x3
Musculoskeletal Exam
Musculoskeletal Exam: other (Left lower extremity with strong pulses positive tenderness and swelling to left lateral malleolus small amount of ecchymosis to the ankle region mild nonspecific dorsal foot tenderness mild swelling to the left knee
however full range of motion)
Skin Exam
Skin Exam: normal color and warm/dry
Psychiatric Exam
Psychiatric Exam: normal mood/affect
Course
Orders/Labs/Results
Orders:
Orders
02/01/25 18:10
Ankle, left 3 view CR [CR Ankle - Left Min 3 Views ] Urgent
Comment:
Reason For Exam: pain
CR Knee - Left 4 Or More View* Urgent
Comment:
Reason For Exam: pain
02/01/25 18:15
Foot, Left 3 View [CR Foot - Left Min 3 Views] Urgent
Comment:
Reason For Exam: pain
02/01/25 19:49
Lalo Wrap Left-Treatment ONCE
Air Splint Left-Treatment ONCE
Ibuprofen [Motrin] 400 mg PO NOW STA
Vital Signs
Initial and Last Documented VS:
Initial Vital Signs
Temp Pulse Resp BP Pulse Ox
98.5 F 71 16 124/82 98
02/01/25 18:11 02/01/25 18:11 02/01/25 18:11 02/01/25 18:11 02/01/25 18:11
Last Documented Vital Signs
Temp Pulse Resp BP Pulse Ox
98.5 F 71 16 124/82 98
02/01/25 18:11 02/01/25 18:11 02/01/25 18:11 02/01/25 18:11 02/01/25 19:39
MDM/Problems Addressed
Differential Diagnosis Includes:
Not limited sprain strain fracture
MDM/Problems Addressed:
Symptoms are consistent with a sprain strain contusion. No obvious fractures. No head injury. No complaints of headache normal neurologic exam she is no longer on blood thinners. Will DC with Lalo wrap air splint ice elevation ibuprofen
Chronic conditions affecting care:
History of PE DVT in the past after knee surgery no longer required to be on blood thinners
*Radiology
Radiology exam reviewed: radiology read reviewed
*Pulse Oximetry
SaO2: 98
Oxygen Mode of Delivery: Room air
Patient hypoxic: no
*Critical Care Note
Total Time (30-74mins, 75-104mins- exclusive of procedures): Not Applicable
ED Attending Note
-
Portions of this chart may have been created with voice recognition software.� Occasional wrong word or��sound alike� substitutions may have occurred due to the inherent limitations of voice recognition software.
Discharge Plan
Departure
Patient Disposition: Home (Routine Discharge)
Date of Disposition: 02/01/25
Time of Disposition: 19:51
Patient with high blood pressure during this ER visit?: No
Condition: Fair
Covid-19: Not Applicable
Discharge Problem:
Ankle sprain, Contusion of knee
Instructions: Contusion (DC), Ankle sprain - ED (DC)
Prescriptions:
No Action
atorvastatin 20 mg Tablet
20 mg PO QPM Qty: 90 5RF
carvedilol 6.25 mg Tablet
6.25 mg PO BID Qty: 60 1RF
cyanocobalamin (vitamin B-12) 1,000 mcg Tablet
1,000 mcg PO DAILY Qty: 30 1RF
amlodipine 2.5 mg Tablet
5 mg PO QPM
Eliquis 2.5 mg tablet
5 mg PO BID
Referrals:
Halina Parker MD [Family Provider, Family Practice]
Rell Dash MD [Active, Orthopedics]
Activity Restrictions/Additional Instructions:
Ice the affected areas for the next 24 hours 20 minutes at a time several times a day. Keep elevated much as possible. Use your walker for support. You may wear Lalo wrap and air splint for support but remove at night while sleeping. Keep
elevated as much as possible. Ibuprofen every 8 hours. Follow-up with family doctor the next 2 days and orthopedics as needed. Return if any worsening of symptoms
Interventions
Interventions:
*Risk Screen - Suicide Last Done: 02/01/25 18:11
*General Assessment Last Done: 02/01/25 18:11
*ED- Fall Risk Assessment Last Done: 02/01/25 18:11
*ED COVID-19 Vaccine History Last Done: 02/01/25 18:11
*ED Influenza Vaccine History Last Done: 02/01/25 18:11
ED-Musculoskeletal Assessment Last Done: 02/01/25 19:36
Discharge Date and Time
Print Language: WOLOF
[2025-02-01] MEDS: MOTRIN 400 MG PO (20:08)
== END 2025-02-01 20:20 | disposition home or self-care (01) ==
LOC: EMR 18:04
PROVIDERS: EMERGENCY PHYSICIAN Student in an Organized Health Care Education/Training Program; FAMILY PHYSICIAN Family Medicine
DX: S93.402A Sprain of unspecified ligament of left ankle, initial encounter (principal); S80.02XA Contusion of left knee, initial encounter; I25.10 Atherosclerotic heart disease of native coronary artery without angina pectoris; I10 Essential (primary) hypertension; E78.00 Pure hypercholesterolemia, unspecified; I25.2 Old myocardial infarction; Z86.711 Personal history of pulmonary embolism; Z86.718 Personal history of other venous thrombosis and embolism; Z79.01 Long term (current) use of anticoagulants; W01.0XXA Fall on same level from slipping, tripping and stumbling without subsequent striking against object, initial encounter; Y92.480 Sidewalk as the place of occurrence of the external cause
CPT/HCPCS: 99283; 73564; 73610; 73630

== ENCOUNTER 2025-02-08 12:39 | Outpatient (RCR) | payer OTHER, SELFPAY | END 2025-02-08 23:59 | disposition home or self-care (01) | LOC: RPT 12:39 | PROVIDERS: ATTENDING PHYSICIAN Nurse Practitioner Family; FAMILY PHYSICIAN Family Medicine | DX: M25.511 Pain in right shoulder (principal); Z73.6 Limitation of activities due to disability; M62.81 Muscle weakness (generalized); M25.522 Pain in left elbow; M25.521 Pain in right elbow; M54.2 Cervicalgia; Z91.81 History of falling | CPT/HCPCS: 97110 ==

== ENCOUNTER 2025-03-11 13:41 | Emergency (ER) | payer OTHER, SELFPAY ==
[2025-03-11 13:48] VITALS: BP 141/85
--- NOTE | 2025-03-11 16:01 | ED.GENMED ---
History of Present Illness
General
Chief Complaint: Swelling
Time Seen by Provider: 03/11/25 16:01
History of Present Illness
History of Present Illness:
FOCUSED PAST MEDICAL HISTORY
- Has had PE, DVT, on Eliquis
REVIEW OF OLD RECORDS
- The patient was seen here 1 month ago diagnosed with an ankle sprain., The patient was also seen here in June with a hematoma of left thigh
Note:
CHIEF COMPLAINT(S)
Left leg pain and swelling.
HISTORY OF PRESENT ILLNESS
The patient is a 79-year-old female who presented to the emergency department after experiencing left leg pain and swelling following a minor accident at home. The incident occurred while the patient was moving furniture in preparation for
Thanksgiving. An ottoman fell and impacted the back of her left calf. The patient describes a sharp pain radiating upwards from the site of impact. On examination, the left leg shows signs of ecchymosis (bruising) and mild to moderate swelling,
particularly around the ankle, with mild calf tenderness. The patient has a history of a previous deep vein thrombosis (DVT) in the right leg following surgery.
EXTERNAL RECORDS REVIEWED
Records indicate that the patient had an ultrasound of her left leg in June, which showed no abnormalities at that time.
PAST SURGICAL HISTORY
The patient had a left hip replacement in June.
SOCIAL DETERMINANTS AFFECTING HEALTH
The patient reports being on 81 mg of aspirin.
REVIEW OF SYSTEMS
- Musculoskeletal: Pain, bruising, and swelling in the left leg.
- Cardiovascular: No additional symptoms reported.
PHYSICAL EXAM
General: Alert, no acute distress.
Skin: Erythema and ecchymosis noted on the distal aspect of the left lower extremity.
Musculoskeletal: Mild to moderate swelling at the left ankle with mild swelling of the right ankle. Mild tenderness noted in the left calf.
PROBLEM LIST
Acute:
- Left leg pain and swelling with ecchymosis.
- Suspected hematoma or deep vein thrombosis.
PLAN
- Perform an ultrasound on the left leg to rule out deep vein thrombosis.
- Monitor for changes or worsening symptoms post-ultrasound.
DIFFERENTIAL DIAGNOSIS
The Differential Diagnosis includes, in no particular order and is not limited to:
- Hematoma
- Deep vein thrombosis
- Cellulitis
- Muscle strain
- Venous insufficiency
- Contusion
- Ligament injury
- Peripheral edema
- Lymphedema
- Tendonitis
RADIOLOGY
- Ultrasound imaging obtained which shows no DVT
UPDATE
-SUMMARY OF ENCOUNTER
The patient, a 79-year-old female, presented to the emergency department with left leg pain and swelling following a minor accident involving an ottoman impacting her left calf. An ultrasound was performed to rule out deep vein thrombosis (DVT), and
the radiologist confirmed the absence of a blood clot in the vein. The findings were consistent with a hematoma due to a collection of blood, attributed to her use of aspirin, which increases the risk of bleeding. The external appearance of bruising
correlates with these findings. The condition does not appear life-threatening.
PLAN
Advise the patient to keep the left leg elevated as much as possible to reduce swelling and support healing of the hematoma.
PATIENT EDUCATION AND COUNSELING
Educated the patient on the effects of aspirin increasing bleeding risk and the importance of elevating the leg to alleviate swelling associated with the hematoma.
FOLLOW-UP INSTRUCTIONS
The patient will receive discharge paperwork and is advised to monitor for changes or worsening symptoms.
MEDICAL DECISION MAKING
-Complexity of Data Reviewed: Chronic conditions affecting care. Potential conditions based on differential diagnosis include hematoma, deep vein thrombosis, cellulitis, muscle strain, venous insufficiency, contusion, ligament injury, peripheral
edema, lymphedema, and tendonitis.
-Data:
Category 1
- Non-emergency department records reviewed, including prior ultrasound indicating no abnormalities.
- Clinical information was obtained from an independent historian.
Category 2
- My independent interpretation of the ultrasound confirms no blood clot, aligning with the radiologists report of no DVT and findings consistent with a hematoma.
-Risk:
Prescription medication was considered. Social determinants affecting health include the patients aspirin usage, which increases bleeding risk.
DIAGNOSIS
Contusion with hematoma of the left leg (ICD-10: S80.12XA).
Past History
Past History
ED Past Medical History: CAD, HTN, Hypercholesterolemia and Other (PE after right knee surgery)
ED Past Surgical History: Orthopedic
Social History
Tobacco: Non-smoker
Alcohol: Occasional
Drug: None
Personal:
Living: alone
Employment: Retired
Family History
Family History: Other (Noncontributory)
Phy Exam
Physical Exam
Physical Exam:
See HPI
Scores
Heart Failure Risk
Heart Failure Risk Score: Not Applicable
Course
Orders/Labs/Results
Orders:
Orders
03/11/25 16:07
US Periph Venous LOWER Ext LT Urgent
Comment:
Reason For Exam: trauma pain; prior DVT; no longer on eliquis
Vital Signs
Initial and Last Documented VS:
Initial Vital Signs
Temp Pulse Resp BP Pulse Ox
36.3 C 74 18 141/85 97
03/11/25 13:48 03/11/25 13:48 03/11/25 13:48 03/11/25 13:48 03/11/25 13:48
Last Documented Vital Signs
Temp Pulse Resp BP Pulse Ox
36.3 C 74 18 141/85 97
03/11/25 13:48 03/11/25 13:48 03/11/25 13:48 03/11/25 13:48 03/11/25 16:02
*Pulse Oximetry
SaO2: 97
Oxygen Mode of Delivery: Room air
Patient hypoxic: no
*Critical Care Note
Total Time (30-74mins, 75-104mins- exclusive of procedures): Not Applicable
ED Attending Note
-
Portions of this chart may have been created with voice recognition software.� Occasional wrong word or��sound alike� substitutions may have occurred due to the inherent limitations of voice recognition software.
Discharge Plan
Departure
Patient Disposition: Home (Routine Discharge)
Date of Disposition: 03/11/25
Time of Disposition: 17:43
Patient with high blood pressure during this ER visit?: Yes
Discharge Problem:
Hematoma
Instructions: BLOOD PRESSURE, Hematoma
Prescriptions:
No Action
atorvastatin 20 mg Tablet
20 mg PO QPM Qty: 90 5RF
carvedilol 6.25 mg Tablet
6.25 mg PO BID Qty: 60 1RF
cyanocobalamin (vitamin B-12) 1,000 mcg Tablet
1,000 mcg PO DAILY Qty: 30 1RF
amlodipine 2.5 mg Tablet
5 mg PO QPM
Eliquis 2.5 mg tablet
5 mg PO BID
Referrals:
Halina Parker MD [Family Provider, Family Practice]
Activity Restrictions/Additional Instructions:
Ultrasound shows no deep vein thrombosis (no DVT), it does show some bruising at the left calf. Return if worse or other concerns
Interventions
Interventions:
*Risk Screen - Suicide Last Done: 03/11/25 13:48
*General Assessment Last Done: 03/11/25 17:54
*Neglect/Abuse Screening Last Done: 03/11/25 17:54
*ED- Fall Risk Assessment Last Done: 03/11/25 17:54
*ED COVID-19 Vaccine History Last Done: 03/11/25 16:24
*ED Influenza Vaccine History Last Done: 03/11/25 16:24
*Nursing Disposition Last Done: 03/11/25 17:54
ED- Cardiac Assessment Last Done: 03/11/25 17:54
ED- Pulmonary Assessment Last Done: 03/11/25 17:54
ED-Skin Assessment Last Done: 03/11/25 17:54
Discharge Date and Time
Discharge Date/Time: 03/11/25 17:55
Print Language: PRYDEINIG
== END 2025-03-11 17:55 | disposition home or self-care (01) ==
LOC: EMR 13:41
PROVIDERS: EMERGENCY PHYSICIAN Emergency Medicine; FAMILY PHYSICIAN Family Medicine
DX: S80.12XA Contusion of left lower leg, initial encounter (principal); W20.8XXA Other cause of strike by thrown, projected or falling object, initial encounter; M79.605 Pain in left leg; R60.0 Localized edema; Z79.01 Long term (current) use of anticoagulants; Z96.642 Presence of left artificial hip joint; Z86.718 Personal history of other venous thrombosis and embolism; Z86.711 Personal history of pulmonary embolism; Z91.040 Latex allergy status; I25.10 Atherosclerotic heart disease of native coronary artery without angina pectoris; I10 Essential (primary) hypertension; E78.00 Pure hypercholesterolemia, unspecified
CPT/HCPCS: 99284; 93971